=== PATIENT | male | born 1960 | race Asian ===

== ENCOUNTER → 2019-09-16 | Day surgery (SDC) | payer BC, OTHER ==
[2019-09-12 16:45] VITALS: BMI 24.3
[2019-09-16 07:47] LABS: EOS % 5.2 % (0-4.5); HEMATOCRIT 30.5 % (35.4-49); HEMOGLOBIN 11.1 GM/dL (11.7-16.9); LYMPH % 19.8 % (8-40); MCHC 36.4 g/dl (32.0-35.9); MEAN CELL VOLUME 87.8 fl (80-96); MEAN PLT VOLUME 6.2 fl (7.5-11.1); MONO % 8.8 % (3.8-10.2); NEUT % 65.2 % (42.8-82.8); PLATELET COUNT 343 K/MM3 (134-434); RBC 3.47 M/mm3 (4.00-5.60); RDW 12.3 % (11.9-15.9); WHITE BLOOD COUNT 9.3 K/mm3 (4.0-10.0)
[2019-09-16 08:35] LABS: INR 0.87 (0.83-1.09); PROTHROMBIN TIME (PATIENT) 10.3 SEC (9.7-13.0)
[2019-09-16 14:18] VITALS: PULSE 70; TEMP 97.9
[2019-09-16 14:43] VITALS: BP 130/85
--- NOTE | 2019-09-25 14:09 | PATH ---
Surgical Pathology Report Patient Name: PINO RIOJAS [facility]. Rec. #: [id number] /Age/Gender: 1960 (Age: 58) / M Account: [id number] Location: RADIOLOGY INTER Taken: 09/16/2019 Received: 09/16/2019 Reported: 09/25/2019 Physicians: Taylor Araya M.D. Specimen(s) Received RENAL BIOPSY Clinical History Renal failure, diabetes mellitus, high blood pressure Intraoperative Consult Diagnosis Left kidney biopsy: Glomeruli present. Robb Reinoso M.D., 09/16/2019 Final Diagnosis Consult report from [place], [place] ([id number]): RENAL BIOPSY 1. NODULAR DIABETIC GLOMERULOSCLEROSIS, MILD TO MODERATE, WITH FOCAL SEGMENTAL SCLEROSING FEATURES (SEE COMMENT). 2. TUBULAR ATROPHY AND INTERSTITIAL FIBROSIS, MILD TO MODERATE 3. ARTERIO-AND ARTERIOLOSCLEROSIS, MODERATE Comment: Immunofluorescence microscopy shows no evidence of glomerular disease of the immune complex type. No acute/active inflammatory injury is seen. Electron microscopy is pending and will be reported separately in an addendum. Microscopic Description: Sections are stained with H&E, PAS, trichrome, and JMS. Sections show 1 core of renal cortex containing 5 glomeruli, 2 of which show complete global sclerosis. One(1) glomerulus shows segmental obliteration and expansion of capillary lumina by foam cells (cellular variant FSGS.) The nonsclerotic glomeruli shows mild to moderate diffuse mesangial sclerosis and thickening of basement membranes. One(1) glomerulus shows mild nodular mesangial sclerosis. No crescents, fibrinoid necrosis or fibrin thrombi are seen. There is mild to moderate patchy tubular atrophy and interstitial fibrosis affecting 30% of the cortical area, accompanied by a patchy mononuclear inflammatory cell infiltrate. No tubulitis, interstitial eosinophils or granulomas are seen. Arteries show moderate intimal fibrosis and arterioles show moderate hyalinosis. There is no evidence of arteritis. IMMUNOFLUORESCENCE (PROCEDURE): Interpretation: GLOMERULI TUBULES INTERSTITIUM VESSELS IgG 7gloms +/- Tbm's +/- neg neg global linear GCW IgM 1 of 7 gloms +/- neg neg arteriole michaud 2+ seg tuft IgA 7 gloms neg casts 1+ neg neg C3 2 of 7 gloms 2+ neg neg arteriole michaud 2+ seg tuft C1 1 of 7 gloms +/- neg neg arteriole michaud 2+ seg tuft FBGN 7 gloms neg neg neg neg ALB 7 gloms 1+ Tbm's 1+ neg neg global linear GCW linear KAPPA 1 of 7 gloms +/- casts 1+ neg neg seg tuft LAMBDA1 of 7 gloms +/- casts 1+ neg neg seg tuft Positive and negative controls show appropriate reactivity. Case sent for consultation to Dr. Damian Muniz from [place], [place] ([id number]), the diagnosis above reflects his opinion. See complete report ([id number]) from [place], [place] for additional details. Electronically Signed Seven Reinoso M.D. Gross Description Received fresh labeled "renal biopsy," is a 1.4 cm in length x 0.1 cm in diameter wilson-red, cylindrical portion of soft tissue. The specimen is sectioned, placed into 10% buffered formalin, Alberto fixative and glutaraldehyde. The specimen is sent to [facility] for further studies. 09/16/2019 saudi09/16/2019
== END | disposition home or self-care (01) ==
LOC: JRADIR 07:11
PROVIDERS: ATTEND Family Medicine
PROC: 0TB13ZX Excision of Left Kidney, Percutaneous Approach, Diagnostic (ICD-10-PCS; principal; 2019-09-16)
PROC: BD24ZZZ Computerized Tomography (CT Scan) of Colon (ICD-10-PCS; 2019-09-16)
DX: N28.9 Disorder of kidney and ureter, unspecified (principal); I10 Essential (primary) hypertension; E11.9 Type 2 diabetes mellitus without complications; N40.0 Benign prostatic hyperplasia without lower urinary tract symptoms; J45.909 Unspecified asthma, uncomplicated; Z79.84 Long term (current) use of oral hypoglycemic drugs; Z79.4 Long term (current) use of insulin
CPT/HCPCS: 36415; 50200; 76098-TC-FY; 76942-TC; 85025; 85610; 87899; 88300-TC; 88329

== ENCOUNTER 2020-05-12 10:15 | Inpatient (IN) | payer BC, OTHER ==
--- NOTE | 2020-05-12 11:13 | PDOC ---
Documentation entered by Teja Garcia SCRIBE, acting as scribe for Sonia Menendez MD. Sonia Menendez MD: This documentation has been prepared by the scribe, Teja Garcia SCRIBE, under my direction and personally reviewed by me in its entirety. I confirm that the documentation accurately reflects all work, treatment, procedures, and medical decision making performed by me. Attending Attestation - Resident Resident Name: KrystinmelisaRamses - ED Attending Attestation I have performed the following: I have examined & evaluated the patient, The case was reviewed & discussed with the resident, I agree w/resident's findings & plan, Exceptions are as noted - HPI HPI: 59 yo M history HTN, DM, CKD stage 4, COPD/asthma presenting with elevated potassium on outpatient labs. He notes recent KAM, above his baseline. Denies fever, cough. +Congestion. No known sick contacts. He is being followed for CKD by Dr. Carmen, awaiting kidney transplant, to be the donor. - Physicial Exam PE: 05/12/20 10:53 GENERAL: Awake, alert, and fully oriented, in no acute distress HEAD: No signs of trauma EYES: PERRLA, EOMI, sclera anicteric, conjunctiva clear ENT: Auricles normal inspection, hearing grossly normal, nares patent, oropharynx clear without exudates. Moist mucosa NECK: Normal ROM, supple, no lymphadenopathy, JVD, or masses LUNGS: Breath sounds equal, good air entry. +Crackles fci up B/L. No wheezes. HEART: Regular rate and rhythm, normal S1 and S2, no murmurs, rubs or gallops ABDOMEN: Soft, nontender, normoactive bowel sounds. No guarding, no rebound. No masses EXTREMITIES: Normal range of motion, no edema. No clubbing or cyanosis. No cords, erythema, or tenderness NEUROLOGICAL: Cranial nerves II through XII grossly intact. Normal speech, normal gait SKIN: Warm, Dry, normal turgor, no rashes or lesions noted. - Medical Decision Making 05/12/20 11:[address] Solano to confirm outpatient labs, also to be evaluated by renal to determine if he needs to start dialysis. Discharge - Discharge Information Problems reviewed: Yes Clinical Impression/Diagnosis: CKD (chronic kidney disease), stage IV Condition: Stable - Follow up/Referral Referrals: Nickie Solano MD [Primary Care Provider] - - Patient Discharge Instructions - Post Discharge Activity
--- NOTE | 2020-05-12 11:30 | PDOC ---
Documentation entered by Teja Garcia SCRIBE, acting as scribe for Sonia Menendez MD. Sonia Menendez MD: This documentation has been prepared by the fredibe, Teja Garcia SCRIBE, under my direction and personally reviewed by me in its entirety. I confirm that the documentation accurately reflects all work, treatment, procedures, and medical decision making performed by me. History of Present Illness - General Chief Complaint: Abnormal Lab Results (Outside) Stated Complaint: SENT BY PCP Time Seen by Provider: 05/12/20 10:49 History Source: Patient Exam Limitations: No Limitations - History of Present Illness Initial Comments: 05/12/20 11:17 59 yo M history HTN, DM, CKD stage 4, COPD/asthma presenting with elevated potassium on outpatient labs. He notes recent KAM, above his baseline. Denies fever, cough. +Congestion. No known sick contacts. He is being followed for CKD by Dr. Carmen, awaiting kidney transplant, to be the donor. Past History - Medical History Allergies/Adverse Reactions: Allergies Allergy/AdvReac Type Severity Reaction Status Date / Time Penicillins Allergy Intermediate Rash Verified 05/12/20 10:29 statins Allergy Uncoded 05/12/20 10:29 Home Medications: Ambulatory Orders Amlodipine Besylate [Norvasc -] 10 mg PO DAILY 01/11/13 Insulin Glargine,Hum.rec.anlog [Lantus (nf)] 50 units SQ DAILY 09/12/19 Lisinopril [Prinivil] 10 mg PO DAILY 09/12/19 Nebivolol HCl [Bystolic] 10 mg PO DAILY 09/12/19 Pitavastatin Calcium [Livalo] 5 mg PO DAILY 09/12/19 Icosapent Ethyl [Vascepa] 1 gm PO DAILY 09/16/19 Albuterol Sulfate Inhaler - [Ventolin Hfa Inhaler -] 1 - 2 inh PO Q4H PRN 01/28/20 Budesonide/Formeterol Fumarate [SYMBICORT 80/4.5mcg -] 1 inh PO BID 01/28/20 Prednisone [Prednisone 50 MG TABLETS] 50 mg PO DAILY 5 Days #5 tablet 01/28/20 Anemia: No Asthma: Yes Cancer: No Cardiac Disorders: No CVA: No COPD: No CHF: No Dementia: No Diabetes: Yes GI Disorders: Yes (COLONIC POLYPS; GERD) Disorders: Yes (KIDNEY STONES) HTN: Yes Hypercholesterolemia: Yes Liver Disease: No Seizures: No Thyroid Disease: No Other medical history: CKD - Surgical History Abdominal Surgery: No Appendectomy: No Cardiac Surgery: No Cholecystectomy: No Lung Surgery: No Neurologic Surgery: No Orthopedic Surgery: Yes (RIGHT ARM SURGERY; LEFT THUMB PTL REMOVAL) - Immunization History Immunization Up to Date: Yes - Psycho-Social/Smoking History Smoking History: Never smoked Have you smoked in the past 12 months: Yes Number of Cigarettes Smoked Daily: 3 'Breaking Loose' booklet given: 09/12/19 - Substance Abuse Hx (Audit-C & DAST Scrn) How often the patient has a drink containing alcohol: Never Score: In Men: 4 or > Positive; In Women: 3 or > Positive: 0 Screen Result (Pos requires Nsg. Audit-10AR): Negative In the last yr the pt used illegal drug/Rx for NonMed reason: No Score: Yes response is considered Positive: 0 Screen Result (Positive result requires Nsg. DAST-10): Negative *Physical Exam - Vital Signs Last Vital Signs Temp Pulse Resp BP Pulse Ox 98.3 F 80 18 152/64 100 05/12/20 10:29 05/12/20 10:29 05/12/20 10:29 05/12/20 10:29 05/12/20 10:29 - Physical Exam 05/12/20 11:17 GENERAL: Awake, alert, and fully oriented, in no acute distress HEAD: No signs of trauma EYES: PERRLA, EOMI, sclera anicteric, conjunctiva clear ENT: Auricles normal inspection, hearing grossly normal, nares patent, oropharynx clear without exudates. Moist mucosa NECK: Normal ROM, supple, no lymphadenopathy, JVD, or masses LUNGS: Breath sounds equal, good air entry. +Crackles alf up B/L. No wheezes. HEART: Regular rate and rhythm, normal S1 and S2, no murmurs, rubs or gallops ABDOMEN: Soft, nontender, normoactive bowel sounds. No guarding, no rebound. No masses EXTREMITIES: Normal range of motion, no edema. No clubbing or cyanosis. No cords, erythema, or tenderness NEUROLOGICAL: Cranial nerves II through XII grossly intact. Normal speech, normal gait SKIN: Warm, Dry, normal turgor, no rashes or lesions noted. Heart Score/ECG Review - ECG Impressions Comment:: EKG read 11:10- NSR 73 bpm, no ST elevations. +Peaked T waves in V3. ED Treatment Course - LABORATORY CBC & Chemistry Diagram: 05/12/20 12:00 05/12/20 12:00 Medical Decision Making - Medical Decision Making 05/12/20 11:[address] Solano to confirm outpatient labs, also to be evaluated by renal to determine if he needs to start dialysis. 05/12/20 14:09 Pt with hyperkalemia. Will treat medically. Dr. Vergara aware. Dr. Carmen en route. Dr. Solano has evaluated patient, will admit. Discharge - Discharge Information Problems reviewed: Yes Clinical Impression/Diagnosis: CKD (chronic kidney disease), stage IV, Hyperkalemia Condition: Stable - Admission Yes - Follow up/Referral Referrals: Nickie Solano MD [Primary Care Provider] - - Patient Discharge Instructions - Post Discharge Activity
[2020-05-12 13:03] LABS: BASO % 0.5 % (0-2.0); HEMATOCRIT 27.1 % (35.4-49); HEMOGLOBIN 8.9 GM/dL (11.7-16.9); LYMPH % 15.4 % (8-40); MCH 29.7 pg (25.7-33.7); MEAN CELL VOLUME 89.9 fl (80-96); MEAN PLT VOLUME 6.5 fl (7.5-11.1); MONO % 9.5 % (3.8-10.2); NEUT % 66.6 % (42.8-82.8); PLATELET COUNT 279 K/MM3 (134-434); RBC 3.01 M/mm3 (4.00-5.60); RDW 12.4 % (11.9-15.9); WHITE BLOOD COUNT 6.9 K/mm3 (4.0-10.0)
[2020-05-12 13:10] LABS: INR 0.91 (0.83-1.09); PROTHROMBIN TIME (PATIENT) 10.7 SEC (9.7-13.0)
[2020-05-12 13:38] LABS: ALBUMIN 3.5 g/dl (3.4-5.0); BILIRUBIN,TOTAL 0.3 mg/dL (0.2-1); BLOOD UREA NITROGEN 83.3 mg/dL (7-18); CALCIUM 7.9 mg/dL (8.5-10.1); CREATININE 7.3 mg/dL (0.55-1.3); MAGNESIUM 2.4 mg/dL (1.8-2.4); PHOSPHOROUS 5.6 mg/dL (2.5-4.9); TOT PROT 7.2 g/dl (6.4-8.2)
[2020-05-12 14:01] LABS: POTASSIUM 6.5 mmol/L (3.5-5.1)
[2020-05-12] MEDS ORDERED: SODIUM BICARBONATE 8.4% 50 MEQ/50 ML DISP.SYRIN IVPUSH ONE (14:04)
[2020-05-12] MEDS ORDERED: INSULIN REGULAR HUMAN 100 UNITS/ML *VIAL IVPUSH ONE (14:04)
[2020-05-12] MEDS ORDERED: ALBUTEROL SO4 0.083% IH SOL 2.5 MG/3 ML VIAL.NEB. NEB ONE ×2 (14:04→14:47)
[2020-05-12] MEDS ORDERED: DEXTROSE 50%-WATER - 25 GM/50 ML VIAL IVPUSH ONE (14:04)
[2020-05-12] MEDS ORDERED: CALCIUM GLUCONATE 10% - 1,000 MG/10 ML VIAL IVPUSH ONE (14:04)
[2020-05-12] MEDS ORDERED: SODIUM BICARBONATE 8.4% - 50 ML ONE (14:47)
[2020-05-12] MEDS ORDERED: DEXTROSE 50%-WATER 25 GM/50 ML DISP.SYRIN ONE (14:47)
[2020-05-12] MEDS ORDERED: INSULIN REGULAR HUMAN 100 UNITS/ML *VIAL ONE (14:47)
[2020-05-12] MEDS ORDERED: CALCIUM GLUCONATE 10% - 1,000 MG/10 ML VIAL ONE (14:47)
[2020-05-12] MEDS ORDERED: ACETAMINOPHEN 325 MG TABLET (FP) PO PRN (16:48)
[2020-05-12] MEDS ORDERED: ALBUTEROL SO4 0.083% IH SOL 2.5 MG/3 ML VIAL.NEB. NEB PRN (16:48)
--- NOTE | 2020-05-12 16:53 | CON.NEP ---
Consult Consult Specialty:: nephrology Reason for Consultation:: ckd stage 5 - History of Present Illness Chief Complaint: none History of Present Illness: This is a 59 year old man diabetic, hypertensive man with a history of ckd that has progressed to a point that he needs HD. He also has asthma He came today due to abnormal labs. reportedly without symptoms. He was on his way to a short vacation to [facility]. Deneis dyspnea, chest pain, n/v, cramping. He did have cramps before but has not had them for a while. In the emrgency dept his k is 6.5 and his creat is 7.3. Has no trouble urinating and no edema. - History Source History Provided By: Patient Limitations to Obtaining History: No Limitations - Past Medical History Cardio/Vascular: Yes: HTN Pulmonary: Yes: Asthma Renal/: Yes: Renal Failure, BPH Heme/Onc: Yes: Anemia - Past Surgical History Past Surgical History: Yes: TURP - Alcohol/Substance Use Hx Alcohol Use: Yes (RARE) - Smoking History Smoking history: Never smoked Have you smoked in the past 12 months: Yes Aproximately how many cigarettes per day: 3 Home Medications - Allergies Allergies/Adverse Reactions: Allergies Allergy/AdvReac Type Severity Reaction Status Date / Time Penicillins Allergy Intermediate Rash Verified 05/12/20 10:29 statins Allergy Uncoded 05/12/20 10:29 - Home Medications Home Medications: Ambulatory Orders Amlodipine Besylate [Norvasc -] 10 mg PO DAILY 01/11/13 Insulin Glargine,Hum.rec.anlog [Lantus (nf)] 50 units SQ DAILY 09/12/19 Lisinopril [Prinivil] 10 mg PO DAILY 09/12/19 Nebivolol HCl [Bystolic] 10 mg PO DAILY 09/12/19 Pitavastatin Calcium [Livalo] 5 mg PO DAILY 09/12/19 Icosapent Ethyl [Vascepa] 1 gm PO DAILY 09/16/19 Albuterol Sulfate Inhaler - [Ventolin Hfa Inhaler -] 1 - 2 inh PO Q4H PRN 01/28/20 Budesonide/Formeterol Fumarate [SYMBICORT 80/4.5mcg -] 1 inh PO BID 01/28/20 Prednisone [Prednisone 50 MG TABLETS] 50 mg PO DAILY 5 Days #5 tablet 01/28/20 Review of Systems - Review of Systems Constitutional: reports: Loss of Appetite Eyes: reports: No Symptoms HENT: reports: No Symptoms Neck: reports: No Symptoms Cardiovascular: reports: No Symptoms Respiratory: reports: No Symptoms Gastrointestinal: reports: No Symptoms Genitourinary: reports: No Symptoms Breasts: reports: No Symptoms Reported Musculoskeletal: reports: No Symptoms Integumentary: reports: No Symptoms Neurological: reports: No Symptoms Endocrine: reports: No Symptoms Hematology/Lymphatic: reports: No Symptoms Psychiatric: reports: No Symptoms Nephrology Consult - Height Height: 5 ft 7 in - Weight Weight: 152 lb - BMI Body Mass Index (BMI): 23.8 - Lab Results CBC,BMP: CBC, BMP 05/12/20 12:00 05/12/20 12:00 Anion Gap: Anion Gap Anion Gap 8 MMOL/L (8-16) 05/12/20 12:00 - Imaging Chest X-ray: Report Reviewed (no acute disease) - Physical Examination Vital Signs: Vital Signs Temperature 98.3 F 05/12/20 15:50 Pulse Rate 82 05/12/20 15:50 Respiratory Rate 18 05/12/20 15:50 Blood Pressure 169/70 05/12/20 15:50 O2 Sat by Pulse Oximetry (%) 97 05/12/20 15:50 Constitutional: Yes: Well Nourished, No Distress, Calm Eyes: Yes: Conjunctiva Clear, EOM Intact HENT: Yes: Atraumatic, Normocephalic Neck: Yes: Supple, Trachea Midline Cardiovascular: Yes: Regular Rate and Rhythm. No: Rub Respiratory: Yes: Rhonchi Renal/: Yes: WNL Musculoskeletal: Yes: WNL Extremities: Yes: WNL Edema: No Wound/Incision: Yes: Well Approximated Neurological: Yes: Alert, Oriented, Tremors Assessment/Plan CKD stage 5 metabolic acidosis hyperkalemia PLAN start hd will ask vascular to place a permcath can dialyZe after hd his is being evaluated for transplant but her DBP is still high on quinapril work up has been done. So none necessary now hep b s Ag and HCV MV
[2020-05-12] MEDS: SODIUM ZIRCONIUM CYCLOSILICATE (LOKELMA) 5 GM PACKET PO SCH (17:54)
[2020-05-12] MEDS ORDERED: ALBUTEROL SO4 HFA INHALER IH PRN (19:00)
--- NOTE | 2020-05-12 20:22 | CONSULT ---
Consult - text type - Consultation Consultation Note: 59 year old man admitted with end-stage kidney disease to begin dialysis treatment. He has not been on dialysis before. He is right handed. PMH reviewed. PEx: NAD HEENT WNL Neck supple Chest clear Cor RRR Abd soft Ext no edema. Left arm has IV in forearm. 2+ radial pulse. Plan for Permacath placement. Assessment for chronic access with AV fistula prior to discharge.
[2020-05-12] MEDS ORDERED: PT OWN MED DRAWER 7, Y5N ONE (23:26)
[2020-05-12] MEDS: INSULIN SLIDING SCALE (NOVOLOG) 1 VIAL SQ SCH (23:37)
[2020-05-12] MEDS: BUDESONIDE/FORMETEROL FUMARATE 80/4.5 mcg INHALER IH SCH (23:38)
[2020-05-13 00:24] VITALS: BMI 23.6
[2020-05-13] MEDS ORDERED: DEXTROSE 50%-WATER - 25 GM/50 ML VIAL IVPUSH ONE (06:05)
[2020-05-13] MEDS ORDERED: DEXTROSE 50%-WATER 25 GM/50 ML DISP.SYRIN ONE (06:06)
[2020-05-13] MEDS: INSULIN SLIDING SCALE (NOVOLOG) 1 VIAL SQ SCH ×4 (06:14→21:16)
--- NOTE | 2020-05-13 08:02 | PN ---
Progress Note, Physician - Current Medication List Current Medications: Active Medications Acetaminophen (Tylenol -) 650 mg PO Q6H PRN PRN Reason: FEVER Albuterol Sulfate (Ventolin Hfa Inhaler -) 2 puff IH Q6H PRN PRN Reason: SHORT OF BREATH/WHEEZING Amlodipine Besylate (Norvasc -) 10 mg PO DAILY [facility] Budesonide/Formoterol Fumarate (Symbicort 80/4.5mcg -) 2 puff IH BID [facility] Last Admin: 05/12/20 23:38 Dose: 2 puff Documented by: Insulin Aspart (Novolog Vial Sliding Scale -) 1 vial SQ ACHS [facility]; Protocol Last Admin: 05/13/20 06:14 Dose: Not Given Documented by: Nebivolol (Bystolic -) 10 mg PO DAILY [facility] Sodium Zirconium Cyclosilicate (Lokelma) 10 gm PO DAILY [facility] Last Admin: 05/12/20 17:54 Dose: 10 gm Documented by: - Objective Vital Signs: Vital Signs Temperature 98.5 F 05/13/20 06:00 Pulse Rate 75 05/13/20 06:00 Respiratory Rate 20 05/13/20 06:00 Blood Pressure 148/75 05/13/20 06:00 O2 Sat by Pulse Oximetry (%) 98 05/13/20 06:00 Labs: CBC, BMP 05/12/20 12:00 05/12/20 12:00 INR, PTT INR 0.91 (0.83-1.09) 05/12/20 12:00
--- NOTE | 2020-05-13 08:12 | HP ---
Admitting History and Physical - Primary Care Physician PCP: Nickie Solano - Admission Chief Complaint: ACUTE ON CHRONIC RENAL FAILURE History of Present Illness: PATIENT SENT FROM MY OFFICE WITH HYPERKALEMIA WORSENING RENAL FUNCTION WITH DYSPNEA ON EXERTION - Past Medical History Cardiovascular: Yes: HTN Pulmonary: Yes: Asthma Renal/: Yes: Renal Failure, BPH Heme/Onc: Yes: Anemia - Past Surgical History Past Surgical History: Yes: TURP - Smoking History Smoking history: Former smoker Have you smoked in the past 12 months: No Aproximately how many cigarettes per day: 3 If you are a former smoker, when did you quit?: 1.5 years ago - Alcohol/Substance Use Hx Alcohol Use: Yes (RARE) Home Medications - Allergies Allergies/Adverse Reactions: Allergies Allergy/AdvReac Type Severity Reaction Status Date / Time Penicillins Allergy Intermediate Rash Verified 05/12/20 10:29 statins Allergy Uncoded 05/12/20 10:29 - Home Medications Home Medications: Ambulatory Orders Amlodipine Besylate [Norvasc -] 10 mg PO DAILY 01/11/13 Insulin Glargine,Hum.rec.anlog [Lantus (nf)] 50 units SQ DAILY 09/12/19 Lisinopril [Prinivil] 10 mg PO DAILY 09/12/19 Nebivolol HCl [Bystolic] 10 mg PO DAILY 09/12/19 Pitavastatin Calcium [Livalo] 5 mg PO DAILY 09/12/19 Icosapent Ethyl [Vascepa] 1 gm PO DAILY 09/16/19 Albuterol Sulfate Inhaler - [Ventolin Hfa Inhaler -] 1 - 2 inh PO Q4H PRN 01/28/20 Budesonide/Formeterol Fumarate [SYMBICORT 80/4.5mcg -] 1 inh PO BID 01/28/20 Prednisone [Prednisone 50 MG TABLETS] 50 mg PO DAILY 5 Days #5 tablet 01/28/20 Review of Systems - Review of Systems Constitutional: reports: Weakness Cardiovascular: reports: No Symptoms Respiratory: reports: SOB Gastrointestinal: reports: No Symptoms Genitourinary: reports: Other Musculoskeletal: reports: Muscle Weakness Physical Examination Vital Signs: Vital Signs Temperature 98.5 F 05/13/20 06:00 Pulse Rate 75 05/13/20 06:00 Respiratory Rate 20 05/13/20 06:00 Blood Pressure 148/75 05/13/20 06:00 O2 Sat by Pulse Oximetry (%) 98 05/13/20 06:00 Constitutional: Yes: Mild Distress Cardiovascular: Yes: Regular Rate and Rhythm Respiratory: Yes: Diminished, Wheezes Gastrointestinal: Yes: WNL Renal/: Yes: WNL Musculoskeletal: Yes: Muscle Weakness Edema: No Neurological: Yes: Pre-Existing Deficit Labs: CBC, BMP 05/12/20 12:00 05/12/20 12:00 Imaging - Results Chest X-ray: Report Reviewed Problem List - Problems (1) CKD (chronic kidney disease), stage IV Code(s): N18.4 - CHRONIC KIDNEY DISEASE, STAGE 4 (SEVERE) (2) Hyperkalemia Code(s): E87.5 - HYPERKALEMIA (3) Wheezing Code(s): R06.2 - WHEEZING Assessment/Plan NEED FOR DIALYSIS IMMEDIATELY RENAL CONSULT APPRECIATED MONITOR K+ NEBS PULM EVAL DVT PROPHYLAXIS
[2020-05-13 08:38] LABS: EPI CELLS 5 /uL (0-25.1); HYALINE CASTS 1 /uL (0-3.1); URINE APPEARANCE CLEAR; URINE BACTERIA 20 /uL (0-1359); URINE BILIRUBIN NEGATIVE (NEGATIVE); URINE COLOR YELLOW; URINE GLUCOSE (UA) NEGATIVE (NEGATIVE); URINE KETONE NEGATIVE (NEGATIVE); URINE LEUK ESTERASE NEGATIVE (NEGATIVE); URINE NITRITE NEGATIVE (NEGATIVE); URINE PROTEIN 3+ (NEGATIVE); URINE RBC 34 /uL (0-23.9); URINE UROBILINOGEN 0.2 mg/dL (0.2-1.0); URINE WBC 43 /uL (0-25.8)
[2020-05-13 08:49] LABS: HEMATOCRIT 23.1 % (35.4-49); HEMOGLOBIN 7.8 GM/dL (11.7-16.9); MCH 29.9 pg (25.7-33.7); MEAN PLT VOLUME 6.3 fl (7.5-11.1); PLATELET COUNT 279 K/MM3 (134-434); RBC 2.62 M/mm3 (4.00-5.60); RDW 12.5 % (11.9-15.9); WHITE BLOOD COUNT 6.8 K/mm3 (4.0-10.0)
[2020-05-13] MEDS ORDERED: PT OWN MED DRAWER 7, Y5N ONE ×3 (08:54→13:13)
[2020-05-13 09:13] LABS: BILIRUBIN,TOTAL 0.3 mg/dL (0.2-1); BLOOD UREA NITROGEN 84.9 mg/dL (7-18); CALCIUM 7.7 mg/dL (8.5-10.1); CREATININE 7.2 mg/dL (0.55-1.3); POTASSIUM 5.3 mmol/L (3.5-5.1); TOT PROT 6.2 g/dl (6.4-8.2)
[2020-05-13] MEDS ORDERED: LIDOCAINE HCL 1%, 10 MG/ML (20ML VIAL) ONE (09:22)
[2020-05-13] MEDS: BUDESONIDE/FORMETEROL FUMARATE 80/4.5 mcg INHALER IH SCH ×2 (10:00→21:18)
[2020-05-13] MEDS ORDERED: amLODIPine BESYLATE 10 MG TABLET (FP) PO SCH (10:00)
[2020-05-13] MEDS ORDERED: NEBIVOLOL 10 MG TABLET (FP) PO SCH (10:00)
--- NOTE | 2020-05-13 10:04 | EKG ---
Test Reason : Blood Pressure : / mmHG Vent. Rate : 073 BPM Atrial Rate : 073 BPM P-R Int : 192 ms QRS Dur : 080 ms QT Int : 410 ms P-R-T Axes : 060 036 059 degrees QTc Int : 451 ms NORMAL SINUS RHYTHM NORMAL ECG WHEN COMPARED WITH ECG OF 28-JAN-2020 16:39, NO SIGNIFICANT CHANGE WAS FOUND Confirmed by MD Hayes Daniel ([id number]) on 05/13/2020 10:04:35 AM Referred By: Confirmed By:Diego Hayes MD
--- NOTE | 2020-05-13 12:59 | PN ---
Progress Note (short form) - Note Progress Note: RENAL Pt seen early this morning had no complaints he does say that food has a metallic taste Last Vital Signs Temp Pulse Resp BP Pulse Ox 98.6 F 76 18 157/95 98 05/13/20 09:00 05/13/20 09:00 05/13/20 09:00 05/13/20 09:00 05/13/20 09:00 lungs clear cvs s1s2 rr abd soft ext no edema neuro slight asterixis on left hand skin no rashes CBC, BMP 05/13/20 07:45 05/13/20 07:45 IMPRESSION esrd htn ckd secondary to dm, biopsy proven PLAN I have discussed dialysis with him. He was waiting for his 's kidney to become available but she has htn and is not fully controlled. He has agreed to initiate hd and will have a permcath placed today can hd today in hope of keeping him on a MWF schedule Please have special events planner send info to [facility]- a [facility] [place]
[2020-05-13] MEDS ORDERED: SODIUM CHLORIDE 250 ML IV PRN ×2 (13:00→17:09)
[2020-05-13] MEDS: SODIUM ZIRCONIUM CYCLOSILICATE (LOKELMA) 5 GM PACKET PO SCH (13:37)
--- NOTE | 2020-05-13 15:02 | PN ---
Progress Note (short form) - Note Progress Note: PULMONARY CONSULTATION DICTATED 05/13/20 IMP HYPERKAEMIA ACUTE ON CKD ASTHMA ANEMIA DM HTN BPH PLAN SUPPLEMENTAL O2 HD PER RENAL INHALED BRONCHODILATORS MONITOR LYTES,H+H OUTPATIENT LOW DOSE CHEST CT FOR LUNG CANCER SCREENING OUTPATIENT PFTS DR LIMON Problem List - Problems (1) HTN (hypertension) Code(s): I10 - ESSENTIAL (PRIMARY) HYPERTENSION (2) CKD (chronic kidney disease), stage IV Code(s): N18.4 - CHRONIC KIDNEY DISEASE, STAGE 4 (SEVERE) (3) Hyperkalemia Code(s): E87.5 - HYPERKALEMIA (4) Wheezing Code(s): R06.2 - WHEEZING (5) Asthma Code(s): J45.909 - UNSPECIFIED ASTHMA, UNCOMPLICATED (6) Anemia Code(s): D64.9 - ANEMIA, UNSPECIFIED
[2020-05-13] MEDS ORDERED: PROPOFOL 20 ML ONE ×3 (16:05)
[2020-05-13] MEDS ORDERED: MIDAZOLAM HCL 2 MG/2 ML SINGLE DOSE VIAL ONE (16:05)
[2020-05-13] MEDS ORDERED: CLINDAMYCIN 600 MG PREMIX BAG IVPB ONE (16:05)
[2020-05-13] MEDS ORDERED: LIDOCAINE HCL 1%, 10 MG/ML (20ML VIAL) NR ONE (16:11)
--- NOTE | 2020-05-13 16:26 | OP ---
Operative Note - Note: Operative Date: 05/13/20 Pre-Operative Diagnosis: ESRD Operation: Placement Permacath Findings: Patent right IJV Implants: 19 cm TTC Permacath Post-Operative Diagnosis: Same as Pre-op Surgeon: Roland Fang Anesthesiologist/FUR BLOWER OPERATOR: Johann Roy Anesthesia: MAC
[2020-05-13] MEDS ORDERED: ONDANSETRON 4 MG/2 ML VIAL IVPUSH PRN (16:31)
[2020-05-13] MEDS ORDERED: ACETAMINOPHEN 325 MG TABLET (FP) PO PRN ×3 (16:31→17:09)
[2020-05-13] MEDS ORDERED: ALBUTEROL SO4 0.083% IH SOL 2.5 MG/3 ML VIAL.NEB. NEB ONE (16:34)
[2020-05-13] MEDS ORDERED: oxyCODONE HCL 5 MG TABLET PO PRN (16:45)
[2020-05-13] MEDS ORDERED: SODIUM CHLORIDE 1,000 ML IV SCH (16:45)
[2020-05-13] MEDS ORDERED: ALBUTEROL SO4 HFA INHALER IH PRN (17:09)
--- NOTE | 2020-05-13 17:10 | CONS ---
DATE OF CONSULTATION: 05/13/2020 PULMONARY CONSULTATION REFERRING PHYSICIAN: Nickie Solano MD. HISTORY OF PRESENT ILLNESS: The patient is a 59-year-old male with past medical history hypertension, diabetes, chronic kidney disease, BPH, anemia, history of GERD, history of tobacco use quit approximately a year and a half ago, admitted to [facility] with progressive renal failure and hyperkalemia. Patient apparently was to supposed to go to [facility] on the way to his vacation in [facility] he was notified abnormal labs, also the elevated potassium of 5.8 and elevated creatinine. He was advised to go to the emergency room. In the ER, his potassium was 6.5, creatinine 7.3. He was given D5W and transferred up to medical floor for further management. He was evaluated by renal. The patient to undergo hemodialysis. The patient has complained of mild shortness of breath with exertion and occasional wheeze, denies any chest pain or palpitations, denies any nausea, vomiting, diaphoresis. He has a history of asthma and states he uses albuterol as well as Symbicort. He has history of tobacco use as stated before and quit approximately a year and a half ago. He is currently employed as a dialysis nurse. PAST MEDICAL HISTORY: Again includes hypertension, asthma, chronic kidney disease, BPH, anemia, history of TURP. SOCIAL HISTORY: He is a retired software quality assurance specialist by profession, history of tobacco use, quit 1.5 years ago. REVIEW OF SYSTEMS: No orthopnea, positive mild dyspnea on exertion, positive occasional wheeze. No chest pain, no palpitations, no nausea, no vomiting, no abdominal pain. CURRENT MEDICATIONS: Include: 1. Symbicort. 2. Tylenol. 3. Albuterol. 4. Bystolic. 5. Norvasc. 6. Normal saline. 7. NovoLog. 8. . PHYSICAL EXAMINATION: General: The patient is a well-developed, well-nourished male, awake, alert, in no acute distress. He is afebrile. Vital Signs: Blood pressure 122/75, respiratory rate 20, O2 saturation 98% on room air. HEENT: Normocephalic, atraumatic. Neck: Supple. Heart: Regular S1, S2. Chest: A few scattered wheezes. Abdomen: Soft, bowel sounds positive. Extremities: No cyanosis, edema. LABORATORY: WBC is 6.8, hemoglobin 7.8, hematocrit 23.1, platelet count of 279,000. BUN 89, creatinine 7.2. COVID is pending. Chest x-ray no acute pathology. IMPRESSION: 1. Hyperkalemia. 2. Acute on chronic kidney disease. 3. Asthma, currently not acute exacerbation. 4. Anemia. 5. Diabetes. 6. Hypertension. 7. Benign prostatic hypertrophy. Suggest supplemental O2, hemodialysis as per renal, inhaled bronchodilators, monitor electrolytes, hemoglobin and hematocrit. Also patient should have an outpatient low-dose CAT scan for lung cancer screening and PFTs as outpatient. ANDRES LIMON M.D. [id number]
[2020-05-14] MEDS: INSULIN SLIDING SCALE (NOVOLOG) 1 VIAL SQ SCH ×3 (06:11→18:25)
[2020-05-14] MEDS ORDERED: PT OWN MED DRAWER 7, Y5N ONE ×2 (08:00→09:20)
[2020-05-14 08:19] LABS: HEMATOCRIT 23.1 % (35.4-49); MCH 30.7 pg (25.7-33.7); MCHC 34.8 g/dl (32.0-35.9); MEAN CELL VOLUME 88.5 fl (80-96); MEAN PLT VOLUME 6.5 fl (7.5-11.1); PLATELET COUNT 254 K/MM3 (134-434); RBC 2.61 M/mm3 (4.00-5.60); WHITE BLOOD COUNT 8.4 K/mm3 (4.0-10.0)
--- NOTE | 2020-05-14 08:33 | OP ---
DATE OF OPERATION: 05/13/2020 SURGEON: Roland Salmeron MD PROCEDURE: Placement of PermCath. PREOPERATIVE DIAGNOSIS: Renal failure. POSTOPERATIVE DIAGNOSIS: Renal failure. ANESTHESIA: Fractional. ANESTHESIOLOGIST: Roberto Roy MD OPERATIVE PROCEDURE: Following routine patient identification with site and side verification, intravenous sedation was established. The right neck and chest were prepped with ChloraPrep. Timeout was performed. Lidocaine 1% was infiltrated in the right neck. Using ultrasound guidance a micropuncture needle was advanced from the skin to the internal jugular vein. A wire was advanced into the superior vena cava and the needle was exchanged for a 5-Urdu catheter. A J-tipped wire was advanced through the right atrium into the inferior vena cava. Additional lidocaine was infiltrated in the chest wall and a stab wound was made. A 19-cm tip-to-cuff PermCath was advanced with a tunneler from the chest to the neck. The tract around the wire was dilated and the introducer placed into the superior vena cava. The wire and the dilator were removed. PermCath was advanced through the introducer and the tip positioned in the right atrium. The introducer was peeled away leaving the catheter in place. Each limb was aspirated freely for blood and flushed with saline and heparin solution. The catheter was sutured to the skin at the exit site with 3-0 nylon and the neck wound was closed with subcuticular suture of 3-0 Vicryl. A sterile dressing was applied and the patient was taken to the recovery room. ROLAND SALMERON M.D. [id number]
[2020-05-14 08:46] LABS: CREATININE 5.3 mg/dL (0.55-1.3); PHOSPHOROUS 6.1 mg/dL (2.5-4.9); POTASSIUM 4.9 mmol/L (3.5-5.1)
[2020-05-14 08:47] LABS: BLOOD UREA NITROGEN 56.5 mg/dL (7-18)
[2020-05-14 08:57] LABS: CALCIUM 6.9 mg/dL (8.5-10.1)
[2020-05-14] MEDS: BUDESONIDE/FORMETEROL FUMARATE 80/4.5 mcg INHALER IH SCH (09:26)
--- NOTE | 2020-05-14 09:39 | DS ---
Physical Examination Vital Signs: Vital Signs Temperature 98.6 F 05/14/20 07:33 Pulse Rate 72 05/14/20 07:33 Respiratory Rate 20 05/14/20 07:33 Blood Pressure 147/75 05/14/20 07:33 O2 Sat by Pulse Oximetry (%) 99 05/13/20 21:00 Findings/Remarks: AWAKE ALERT FEELS BETTER C/O PHLEGM CLEAR DENIES SOB Cardiovascular: Yes: Regular Rate and Rhythm Respiratory: Yes: Wheezes Gastrointestinal: Yes: Soft Renal/: Yes: Other Musculoskeletal: Yes: Muscle Weakness Wound/Incision: Yes: Dressing Dry and Intact, Other Labs: CBC, BMP 05/14/20 07:00 05/14/20 07:00 Discharge Summary Problems reviewed: Yes Reason For Visit: STAGE 4 CKD,HYPERKALEMIA Current Active Problems Anemia (Acute) Asthma (Acute) CKD (chronic kidney disease), stage IV (Acute) HTN (hypertension) (Acute) Hyperkalemia (Acute) Procedures: Principal: PC PLACED CHEST WALL Hospital Course: ADMITTED ACUTE ON CHRONIC RENAL FAILURE WITH HYPERKALEMIA PC PLACED WITH HD COMPLETED YESTERDAY Plan of Treatment: FOLLOW UP WITH NEPHROLOGY DR LIMON ASTHMA FOLLOW UP SEE DR SOLANO IN 1-2 WEEKS Condition: Stable - Instructions Diet, Activity, Other Instructions: SEE DR SOLANO IN 1 WEEK F/U DR CABALLERO FOR DIALYSIS Referrals: Nicike Solano MD [Primary Care Provider] - Disposition: HOME - Home Medications Comprehensive Discharge Medication List: Ambulatory Orders Amlodipine Besylate [Norvasc -] 10 mg PO DAILY 01/11/13 Insulin Glargine,Hum.rec.anlog [Lantus (nf)] 50 units SQ DAILY 09/12/19 Lisinopril [Prinivil] 10 mg PO DAILY 09/12/19 Nebivolol HCl [Bystolic] 10 mg PO DAILY 09/12/19 Pitavastatin Calcium [Livalo] 5 mg PO DAILY 09/12/19 Icosapent Ethyl [Vascepa] 1 gm PO DAILY 09/16/19 Albuterol Sulfate Inhaler - [Ventolin Hfa Inhaler -] 1 - 2 inh PO Q4H PRN 01/28/20 Budesonide/Formeterol Fumarate [SYMBICORT 80/4.5mcg -] 1 inh PO BID 05/12/20 Prednisone [Prednisone 50 MG TABLETS] 50 mg PO DAILY 5 Days #5 tablet 01/28/20
[2020-05-14] MEDS ORDERED: NEBIVOLOL 10 MG TABLET (FP) PO SCH (10:00)
[2020-05-14] MEDS ORDERED: SODIUM ZIRCONIUM CYCLOSILICATE (LOKELMA) 5 GM PACKET PO SCH (10:00)
[2020-05-14] MEDS ORDERED: amLODIPine BESYLATE 10 MG TABLET (FP) PO SCH (10:00)
--- NOTE | 2020-05-14 10:18 | PN ---
Progress Note (short form) - Note Progress Note: Surgery: Pt without complaints. No CP or SOB. He had HD yesterday via his PC. Vital Signs Period Temp Pulse Resp BP Sys/Nguyen Pulse Ox Last 24 Hr 97.5 F-98.7 F 67-81 14-20 114-162/57-83 98-100 GEN: A&0x3, NAD Chest: Right IJ cath site. c/d/i. No evidence of bleeding/hematoma. CBC, BMP 05/14/20 07:00 05/14/20 07:00 A/p: 59 yo male s/p Permacath, POD#1 Doing well and plan for discharge to home by the medical service Discharge instructions completed today for follow care with Dr. Fang
--- NOTE | 2020-05-14 10:36 | PN ---
Progress Note (short form) - Note Progress Note: RENAL Pt seen this morning had no complaints tolerated hd well. "i didnt feel anything" Last Vital Signs Temp Pulse Resp BP Pulse Ox 98.4 F 70 18 162/82 98 05/14/20 10:00 05/14/20 10:00 05/14/20 10:00 05/14/20 10:00 05/14/20 10:00 lungs clear cvs s1s2 rr abd soft ext no edema neuro slight asterixis on left hand skin no rashes CBC, BMP 05/14/20 07:00 05/14/20 07:00 Current Medications Generic Name Dose Route Start Last Admin Trade Name Freq PRN Reason Stop Dose Admin Acetaminophen 650 mg 05/13/20 16:31 Tylenol - PO Q4H PRN Pain-PACU ORDER X 2 DOSES ONLY Acetaminophen 325 mg 05/13/20 16:45 Tylenol - PO 05/16/20 16:44 Q4H PRN PAIN LEVEL 1-5 Acetaminophen 650 mg 05/13/20 17:09 Tylenol - PO Q6H PRN FEVER Albuterol Sulfate 2 puff 05/13/20 17:09 Ventolin Hfa Inhaler - IH Q6H PRN SHORT OF BREATH/WHEEZING Amlodipine Besylate 10 mg 05/14/20 10:00 05/14/20 09:25 Norvasc - PO 10 mg DAILY [facility] Administration Budesonide/Formoterol Fumarate 2 puff 05/13/20 22:00 05/14/20 09:26 Symbicort 80/4.5mcg - IH 2 puff BID [facility] Administration Sodium Chloride 1,000 mls @ 75 mls/hr 05/13/20 16:45 05/13/20 21:17 Normal Saline - IV 75 mls/hr ASDIR [facility] Administration Sodium Chloride 250 mls @ 3,000 mls/hr 05/13/20 17:09 Normal Saline - IV 05/14/20 13:00 PRN PRN Hypotension during Dialysis Insulin Aspart 1 vial 05/13/20 22:00 05/14/20 06:11 Novolog Vial Sliding Scale - SQ Not Given ACHS [facility] Protocol Nebivolol 10 mg 05/14/20 10:00 05/14/20 09:24 Bystolic - PO 10 mg DAILY [facility] Administration Ondansetron HCl 4 mg 08/26/20 16:31 Zofran Injection IVPUSH Q6H PRN NAUSEA AND/OR VOMITING Oxycodone HCl 5 mg 05/13/20 16:45 Roxicodone - PO Q4H PRN PAIN LEVEL 1-5 Sodium Zirconium Cyclosilicate 10 gm 05/14/20 10:00 05/14/20 09:25 Lokelma PO 10 gm DAILY [facility] Administration IMPRESSION esrd htn 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 I called the facility service associate already at [facility] dialysis and Im awaiting response will need hep b s ag report which was drawn yesterday but report is pending. He will not be accepted anywhere without that [facility]
--- NOTE | 2020-05-14 13:09 | PN ---
Progress Note (short form) - Note Progress Note: PULMONARY Denies shortness of breath, cough or wheezing. Vital Signs Period Temp Pulse Resp BP Sys/Nguyen Pulse Ox Last 24 Hr 97.5 F-98.7 F 67-81 14-20 114-162/57-83 98-100 Gen: NAD at rest Heart: RRR Lung: no wheezes appreciated Abd: soft, nontender Ext: no edema CBC, BMP 05/14/20 07:00 05/14/20 07:00 Active Medications Acetaminophen (Tylenol -) 650 mg PO Q4H PRN PRN Reason: Pain-PACU ORDER X 2 DOSES ONLY Acetaminophen (Tylenol -) 325 mg PO Q4H PRN PRN Reason: PAIN LEVEL 1-5 Stop: 05/16/20 16:44 Acetaminophen (Tylenol -) 650 mg PO Q6H PRN PRN Reason: FEVER Albuterol Sulfate (Ventolin Hfa Inhaler -) 2 puff IH Q6H PRN PRN Reason: SHORT OF BREATH/WHEEZING Amlodipine Besylate (Norvasc -) 10 mg PO DAILY [facility] Last Admin: 05/14/20 09:25 Dose: 10 mg Documented by: Budesonide/Formoterol Fumarate (Symbicort 80/4.5mcg -) 2 puff IH BID [facility] Last Admin: 05/14/20 09:26 Dose: 2 puff Documented by: Sodium Chloride (Normal Saline -) 1,000 mls @ 75 mls/hr IV ASDIR [facility] Last Admin: 05/13/20 21:17 Dose: 75 mls/hr Documented by: Sodium Chloride (Normal Saline -) 250 mls @ 3,000 mls/hr IV PRN PRN PRN Reason: Hypotension during Dialysis Stop: 05/14/20 13:00 Insulin Aspart (Novolog Vial Sliding Scale -) 1 vial SQ ACHS [facility]; Protocol Last Admin: 05/14/20 12:07 Dose: Not Given Documented by: Nebivolol (Bystolic -) 10 mg PO DAILY [facility] Last Admin: 05/14/20 09:24 Dose: 10 mg Documented by: Ondansetron HCl (Zofran Injection) 4 mg IVPUSH Q6H PRN PRN Reason: NAUSEA AND/OR VOMITING Oxycodone HCl (Roxicodone -) 5 mg PO Q4H PRN PRN Reason: PAIN LEVEL 1-5 Sodium Zirconium Cyclosilicate (Lokelma) 10 gm PO DAILY [facility] Last Admin: 05/14/20 09:25 Dose: 10 gm Documented by: A/P Acute on Chronic Renal Failure Hyperkalemia Asthma HTN DM Anemia - monitor lytes - HD per renal - inhaled bronchodilators - outpt PFTs - DVT prophylaxis
[2020-05-14 14:15] VITALS: BP 138/69; PULSE 75; TEMP 98.9
[2020-05-14 23:09] LABS: HEP B CORE AB, TOT Negative (Negative)
== END 2020-05-14 17:06 | disposition home or self-care (01) | DRG 673 ==
LOC: JER 10:15 → JERBED 14:41 → J8W 21:44
PROVIDERS: ADMIT Family Medicine; ATTEND Family Medicine
PROC: 05HM33Z Insertion of Infusion Device into Right Internal Jugular Vein, Percutaneous Approach (ICD-10-PCS; 2020-05-13)
PROC: B549ZZA Ultrasonography of Inferior Vena Cava, Guidance (ICD-10-PCS; 2020-05-13)
PROC: 0JH63XZ Insertion of Tunneled Vascular Access Device into Chest Subcutaneous Tissue and Fascia, Percutaneous Approach (ICD-10-PCS; principal; 2020-05-13 12:00)
DX: I12.0 Hypertensive chronic kidney disease with stage 5 chronic kidney disease or end stage renal disease (principal); N18.6 End stage renal disease; E87.2 Acidosis; N17.9 Acute kidney failure, unspecified; K21.9 Gastro-esophageal reflux disease without esophagitis; K63.5 Polyp of colon; N40.0 Benign prostatic hyperplasia without lower urinary tract symptoms; D64.9 Anemia, unspecified; R06.02 Shortness of breath; J45.909 Unspecified asthma, uncomplicated; E11.22 Type 2 diabetes mellitus with diabetic chronic kidney disease; Z99.2 Dependence on renal dialysis; Z87.442 Personal history of urinary calculi
CPT/HCPCS: 36415; 71045-TC-FY; 76000-TC-FY; 80048; 80053; 81003; 82962; 83735; 84100; 85025; 85027; 85610; 86704; 86705; 86706; 86707; 86850; 86900; 86901; 93005; 93010; 94760; 99285-25; J1644; U0003

== ENCOUNTER 2020-07-06 05:16 | Day surgery (SDC) | payer BC, OTHER ==
--- OUTSIDE RECORDS SUMMARY | 2020-07-03 09:58 | XMS ---
:1960 [facility] Care Team Providers Name Role Phone YOON MOE Unavailable Unavailable Xiomara, Ammir Unavailable [phone] Xiomara, Ammir Unavailable [phone] Xiomara, Ammir Unavailable [phone] Xiomara, Ammir Unavailable [phone] Xiomara, Ammir Unavailable [phone] Xiomara, Ammir Unavailable [phone] Xiomara, Ammir Unavailable [phone] Xiomara, Ammir Unavailable [phone] Xiomara, Ammir Unavailable [phone] Xiomara, Ammir Unavailable [phone] Xiomara, Ammir Unavailable [phone] Xiomara, Ammir Unavailable [phone] Xiomara, Ammir Unavailable [phone] Xiomara, Ammir Unavailable [phone] Xiomara, Ammir Unavailable [phone] Xiomara, Ammir Unavailable [phone] Re-disclosure Warning The records that you are about to access may contain information from federally- assisted alcohol or drug abuse programs. If such information is present, then the following federally mandated warning applies: This information has been disclosed to you from records protected by federal confidentiality rules (42 CFR part 2). The federal rules prohibit you from making any further disclosure of this information unless further disclosure is expressly permitted by the written consent of the person to whom it pertains or as otherwise permitted by 42 CFR part 2. A general authorization for the release of medical or other information is NOT sufficient for this purpose. The Federal rules restrict any use of the information to criminally investigate or prosecute any alcohol or drug abuse patient.The records that you are about to access may contain highly sensitive health information, the redisclosure of which is protected by Article 27-F of the [facility] Public Health law. If you continue you may haveaccess to information: Regarding HIV / AIDS; Provided by facilities licensed or operated by the [facility] Office of Mental Health; or Provided by the [facility] Office for People With Developmental Disabilities. If such information is present, then the following [facility] mandated warning applies: This information has been disclosed to you from confidential records which are protected by state law. State law prohibits you from making any further disclosure of this information without the specific written consent of the person to whom it pertains, or as otherwise permitted by law. Any unauthorized further disclosure in violation of state law may result in a fine or alf sentence or both. A general authorization for the release of medical or other information is NOT sufficient authorization for further disclosure. Encounters Encounter Providers Location Date Indications Data Source(s ) Attender: [facility] 06/23/2020 MEDGEN (A mmir Xiomara 12:00:00 AM SANDER Solano Ph ysician) Office Attender: esha Vargasadi 06/23/2020 12:00:00 AM E DT MEDGEN (Ammir Xiomara Physician) Office Attender: Nickie Vargasadi 06/23/2020 12:00:00 AM E DT MEDGEN (Ammir Xiomara Physician) Office Attender: Kemir Xiomara 06/23/2020 12:00:00 AM E DT MEDGEN (Ammir Xiomara Physician) Office Attender: Kemiuri Xiomara 06/02/2020 12:00:00 AM E DT MEDGEN (Ammir Xiomara Physician) Office Attender: Kemir Xiomara 06/02/2020 12:00:00 AM E DT MEDGEN (Ammir Xiomara Physician) Office Attender: Nickie Solano 05/12/2020 12:00:00 AM E DT MEDGEN (Ammir Xiomara Physician) Office Attender: Nickie Solano 05/12/2020 12:00:00 AM E DT MEDGEN (Ammir Xiomara Physician) Office Attender: Nickie Solano 05/12/2020 12:00:00 AM E DT MEDGEN (Ammir Xiomara Physician) Office Outpatient Attender: ABHI 10/22/2019 11:51:00 [facility] ANISAdmitter: AM EST [facility] YOONReferrer: YOON MOE Outpatient Attender: ABHI 10/22/2019 06:00:00 N18.6 [facility] LEENAELAdmitter: AM EST Z76.82 [facility] DANIMARCUSReferrer: YOON MOE N18.6 Z76.82 Medications Medication Brand Start Product Dose Route Administrative Pharmacy [facility] Indications Reaction Description Data Name Date Form Instructions Instructions Source(s) RENAPLEX-D: 06/02/ complet RENAPLEX -D MEDGEN [id number] ed (Ammir 12:00: Xiomara 00 AM Physician) EDT RENAPLEX-D: 06/02/ complet RENAPLEX -D MEDGEN [id number] [id number] ed (Ammir 12:00: Xiomara 00 AM Physician) EDT pitavastati LIVALO 08/05/ TABLET 90 complet LIVA LO MEDGEN n 4 MG Oral :85500 2019 ed (Ammir Tablet 4 12:00: Xiomara [Livalo] 00 AM Physician) LIVALO:8616 EDT 54 nebivolol 5 BYSTOL 08/05/ TABLET 90 complet BYST OLIC MEDGEN MG Oral IC:387 2019 ed (Ammir Tablet 013 12:00: Xiomara BYSTOLIC:38 00 AM Physici an) 7013 EDT pitavastati LIVALO 08/05/ TABLET 90 complet LIVA LO MEDGEN n 4 MG Oral :87226 2019 ed (Ammir Tablet 4 12:00: Xiomara [Livalo] 00 AM Physician) LIVALO:8616 EDT 54 Amlodipine AMLODI 08/05/ TABLET 90 complet AMLOD IPINE MEDGEN 10 MG Oral PINE:3 2019 ed (Ammir Tablet 33825 12:00: Xiomara AMLODIPINE: 00 AM Physici an) 942536 EDT nebivolol 5 BYSTOL 08/05/ TABLET 90 complet BYST OLIC MEDGEN MG Oral IC:387 2019 ed (Ammir Tablet 013 12:00: Xiomara BYSTOLIC:38 00 AM Physici an) 7013 EDT pitavastati LIVALO 04/22/ TABLET 90 complet LIVA LO MEDGEN n 4 MG Oral :45869 2019 ed (Ammir Tablet 4 12:00: Xiomara [Livalo] 00 AM Physician) LIVALO:8616 EDT 54 Amlodipine AMLODI 05/ TABLET 90 complet AMLOD IPINE MEDGEN 10 MG Oral PINE:3 2019 ed (Ammir Tablet 68613 12:00: Xiomara AMLODIPINE: 00 AM Physici an) 590793 EDT Amlodipine AMLODI 05/ TABLET 90 complet AMLOD IPINE MEDGEN 10 MG Oral PINE:3 2019 ed (Ammir Tablet 13330 12:00: Xiomara AMLODIPINE: 00 AM Physici an) 232337 EDT nebivolol 5 BYSTOL 04/22/ TABLET 90 complet BYST OLIC MEDGEN MG Oral IC:387 2019 ed (Ammir Tablet 013 12:00: Xiomara BYSTOLIC:38 00 AM Physici an) 7013 EDT Budesonide SYMBIC 02/24/ AEROSOL 3 complet SYMB ICORT MEDGEN 0.08 ORT:40 2019 ed (Ammir MG/ACTUAT / 9732 12:00: Xiomara formoterol 00 AM Physicia n) 0.0045 EDT MG/ACTUAT Inhalant Powder SYMBICORT:4 58379 Lisinopril LISINO 02/24/ TABLET 90 complet LISIN OPRIL MEDGEN 10 MG Oral PRIL:3 2019 ed (Ammir Tablet 25341 12:00: Xiomara LISINOPRIL: 00 AM Physici an) 032757 EDT 200 ACTUAT ALBUTE 02/24/ AEROSOL 1 complet ALBU TEROL MEDGEN Albuterol ROL 2019 ed SULFATE HFA (Am esha 0.09 SULFAT 12:00: Xiomara MG/ACTUAT E 00 AM Physician ) Metered HFA:74 EDT Dose 5679 Inhaler ALBUTEROL SULFATE HFA:374538 GLUCOSE complet GLUCOSE MEDG EN METER TEST 2019 ed METER TEST (Am esha IN VITRO 12:00: IN VITRO Rabad i STRIP: 00 AM STRIP Physician) EDT 3 ML LANTUS 02/24/ SOLUTION 3 complet LANTUS ME DGEN Insulin SOLOST 2020 ed SOLOSTAR PEN (A mmir Glargine [place] 12:00: Xiomara 100 UNT/ML PEN:84 00 AM Physic nico) Pen 7232 EDT Injector [Lantus] LANTUS SOLOSTAR PEN:813326 3 ML LANTUS 02/24/ SOLUTION 3 complet LANTUS ME DGEN Insulin SOLOST 2020 ed SOLOSTAR PEN (A mmir Glargine [place] 12:00: Xiomara 100 UNT/ML PEN:84 00 AM Physic nico) Pen 7232 EDT Injector [Lantus] LANTUS SOLOSTAR PEN:145243 GLUCOSE complet GLUCOSE MEDG EN METER TEST 2019 ed METER TEST (Am esha IN VITRO 12:00: IN VITRO Rabad i STRIP: 00 AM STRIP Physician) EDT 200 ACTUAT ALBUTE 02/24/ AEROSOL 1 complet ALBU TEROL MEDGEN Albuterol ROL 2019 ed SULFATE HFA (Am esha 0.09 SULFAT 12:00: Xiomara MG/ACTUAT E 00 AM Physician ) Metered HFA:74 EDT Dose 5679 Inhaler ALBUTEROL SULFATE HFA:170985 Budesonide SYMBIC 02/24/ AEROSOL 3 complet SYMB ICORT MEDGEN 0.08 ORT:40 2019 ed (Ammir MG/ACTUAT / 9732 12:00: Xiomara formoterol 00 AM Physicia n) 0.0045 EDT MG/ACTUAT Inhalant Powder SYMBICORT:4 89373 200 ACTUAT ALBUTE 02/24/ AEROSOL 1 complet ALBU TEROL MEDGEN Albuterol ROL 2019 ed SULFATE HFA (Am esha 0.09 SULFAT 12:00: Xiomara MG/ACTUAT E 00 AM Physician ) Metered HFA:74 EDT Dose 5679 Inhaler ALBUTEROL SULFATE HFA:277170 Lisinopril LISINO 02/24/ TABLET 90 complet LISIN OPRIL MEDGEN 10 MG Oral PRIL:3 2019 ed (Ammir Tablet 10921 12:00: Xiomara LISINOPRIL: 00 AM Physici an) 986093 EDT GLUCOSE complet GLUCOSE MEDG EN METER TEST 2019 ed METER TEST (Am esha IN VITRO 12:00: IN VITRO Rabad i STRIP: 00 AM STRIP Physician) EDT Lisinopril LISINO 02/24/ TABLET 90 complet LISIN OPRIL MEDGEN 10 MG Oral PRIL:3 2019 ed (Ammir Tablet 55826 12:00: Xiomara LISINOPRIL: 00 AM Physici an) 121493 EDT Budesonide SYMBIC 02/24/ AEROSOL 3 complet SYMB ICORT MEDGEN 0.08 ORT:40 2019 ed (Ammir MG/ACTUAT / 9732 12:00: Xiomara formoterol 00 AM Physicia n) 0.0045 EDT MG/ACTUAT Inhalant Powder SYMBICORT:4 84391 3 ML LANTUS 02/24/ SOLUTION 3 complet LANTUS ME DGEN Insulin SOLOST 2019 ed SOLOSTAR PEN (A mmir Glargine [place] 12:00: Xiomara 100 UNT/ML PEN:84 00 AM Physic nico) Pen 7232 EDT Injector [Lantus] LANTUS SOLOSTAR PEN:293945 Albuterol ALBUTE 07/ SOLUTION 3 complet ALBU TEROL MEDGEN 0.83 MG/ML ROL:63 2019 ed (Ammir Inhalant 0208 12:00: Xiomara Solution 00 AM Physician) ALBUTEROL:6 EDT 94389 Albuterol ALBUTE 07/ SOLUTION 3 complet ALBU TEROL MEDGEN 0.83 MG/ML ROL:63 2019 ed (Ammir Inhalant 0208 12:00: Xiomara Solution 00 AM Physician) ALBUTEROL:6 EDT 09018 Albuterol ALBUTE 07/ SOLUTION 3 complet ALBU TEROL MEDGEN 0.83 MG/ML ROL:63 2019 ed (Ammir Inhalant 0208 12:00: Xiomara Solution 00 AM Physician) ALBUTEROL:6 EDT 73892 3 ML LANTUS 17/ SOLUTION 3 complet LANTUS ME DGEN Insulin :60278 2019 ed (Ammir Glargine 0 12:00: Xiomara 100 UNT/ML 00 AM Physicia n) Pen EDT Injector LANTUS:8472 30 3 ML LANTUS 17/ SOLUTION 3 complet LANTUS ME DGEN Insulin :25706 2019 ed (Ammir Glargine 0 12:00: Xiomara 100 UNT/ML 00 AM Physicia n) Pen EDT Injector LANTUS:8472 30 3 ML LANTUS 03/17/ SOLUTION 3 complet LANTUS ME DGEN Insulin :67445 2019 ed (Ammir Glargine 0 12:00: Xiomara 100 UNT/ML 00 AM Physicia n) Pen EDT Injector LANTUS:8472 30 3 ML HUMALO 08/20/ SOLUTION 1 complet HUMALOG M EDGEN Insulin G 2019 ed KWIKPEN (Ammir Lispro 100 KWIKPE 12:00: Rabad i UNT/ML Pen N:1652 00 AM Physic nico) Injector 640 EST [Humalog] HUMALOG KWIKPEN:165 2640 3 ML HUMALO 08/20/ SOLUTION 1 complet HUMALOG M EDGEN Insulin G 2019 ed KWIKPEN (Ammir Lispro 100 KWIKPE 12:00: Rabad i UNT/ML Pen N:1652 00 AM Physic nico) Injector 640 EST [Humalog] HUMALOG KWIKPEN:165 2640 3 ML HUMALO 08/20/ SOLUTION 1 complet HUMALOG M EDGEN Insulin G 2019 ed KWIKPEN (Ammir Lispro 100 KWIKPE 12:00: Rabad i UNT/ML Pen N:1652 00 AM Physic nico) Injector 640 EST [Humalog] HUMALOG KWIKPEN:165 2640 Omeprazole OMEPRA 07/31/ DELAYED 90 complet OMEP RAZOLE MEDGEN 40 MG ZOLE:2 2018 RELEASE ed (Ammir Delayed 41490 12:00: CAPSULE Xiomara Release 00 AM Physician) Oral EST Capsule OMEPRAZOLE: 20021027 Omeprazole OMEPRA 07/31/ DELAYED 90 complet OMEP RAZOLE MEDGEN 40 MG ZOLE:2 2018 RELEASE ed (Ammir Delayed 26896 12:00: CAPSULE Xiomara Release 00 AM Physician) Oral EST Capsule OMEPRAZOLE: 20021027 Omeprazole OMEPRA 07/31/ DELAYED 90 complet OMEP RAZOLE MEDGEN 40 MG ZOLE:2 2018 RELEASE ed (Ammir Delayed 35525 12:00: CAPSULE Xiomara Release 00 AM Physician) Oral EST Capsule OMEPRAZOLE: 20021027 Insurance Providers Payer name Policy type Policy ID Covered Covered constitution party's Policy P robert / Coverage constitution party ID relationship to Lance Inf ormation type lance GHI CBP [id number] S [id number] OUTPT BC PPO [id number] S [id number] BC PPO [id number] S [id number] GHI CBP [id number] S [id number] OUTPT EMBLEM [id number] HEALTH Problems, Conditions, and Diagnoses Code Display Name Description Problem Type Effective Data Sour ce(s) Dates R25.2 Cramp and spasm CRAMP AND SPASM Problem 06/02/2020 MEDG EN (Ammir 12:00:00 AM Xiomara EDT Physician) R25.2 Cramp and spasm CRAMP AND SPASM Problem 06/02/2020 MEDG EN (Ammir 12:00:00 AM Xiomara EDT Physician) R06.00 Dyspnea, DYSPNEA, Problem 05/12/2020 MEDGEN (Ammir unspecified UNSPECIFIED 12:00:00 AM Xiomara EDT Physician) R06.00 Dyspnea, DYSPNEA, Problem 05/12/2020 MEDGEN (Ammir unspecified UNSPECIFIED 12:00:00 AM Xiomara EDT Physician) R06.00 Dyspnea, DYSPNEA, Problem 05/12/2020 MEDGEN (Ammir unspecified UNSPECIFIED 12:00:00 AM Xiomara EDT Physician) E87.5 Hyperkalemia HYPERKALEMIA Problem 02/18/2020 MEDGEN (Am esha 12:00:00 AM Xiomara EDT Physician) Z48.89 Encounter for ENCOUNTER FOR Problem 02/18/2020 MEDGEN ( Ammir other specified OTHER SPECIFIED 12:00:00 AM Rab montse surgical aftercare SURGICAL AFTERCARE EDT Physician) E87.5 Hyperkalemia HYPERKALEMIA Problem 02/18/2020 MEDGEN (Am esha 12:00:00 AM Xiomara EDT Physician) Z48.89 Encounter for ENCOUNTER FOR Problem 02/18/2020 MEDGEN ( Ammir other specified OTHER SPECIFIED 12:00:00 AM Rab montse surgical aftercare SURGICAL AFTERCARE EDT Physician) E87.5 Hyperkalemia HYPERKALEMIA Problem 02/18/2020 MEDGEN (Am esha 12:00:00 AM Xiomara EDT Physician) Z48.89 Encounter for ENCOUNTER FOR Problem 02/18/2020 MEDGEN ( Ammir other specified OTHER SPECIFIED 12:00:00 AM Rab [place]se surgical aftercare SURGICAL AFTERCARE EDT Physician) 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 0 MEDGEN (Ammir nodule NODULE 12:00:00 AM Xiomara EDT Physician) J03.90 Acute tonsillitis, ACUTE TONSILLITIS, Problem 0 MEDGEN (Ammir unspecified UNSPECIFIED 12:00:00 AM Xiomara EDT Physician) 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 0 MEDGEN (Ammir nodule NODULE 12:00:00 AM Xiomara EDT Physician) J03.90 Acute tonsillitis, ACUTE TONSILLITIS, Problem 0 MEDGEN (Ammir unspecified UNSPECIFIED 12:00:00 AM Xiomara EDT Physician) 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 0 MEDGEN (Ammir nodule NODULE 12:00:00 AM Xiomara EDT Physician) J03.90 Acute tonsillitis, ACUTE TONSILLITIS, Problem 0 MEDGEN (Ammir unspecified UNSPECIFIED 12:00:00 AM Xiomara EDT Physician) D64.9 Anemia, ANEMIA, Problem 01/28/2020 MEDGEN (Ammir unspecified UNSPECIFIED 12:00:00 AM Xiomara EDT Physician) D64.9 Anemia, ANEMIA, Problem 01/28/2020 MEDGEN (Ammir unspecified UNSPECIFIED 12:00:00 AM Xiomara EDT Physician) D64.9 Anemia, ANEMIA, Problem 01/28/2020 MEDGEN (Ammir unspecified UNSPECIFIED 12:00:00 AM Xiomara EDT Physician) L66.2 Folliculitis FOLLICULITIS Problem 01/23/2020 MEDGEN (Am esha decalvans DECALVANS 12:00:00 AM Xiomara EDT Physician) R50.9 Fever, unspecified FEVER, UNSPECIFIED Problem 0 MEDGEN (Ammir 12:00:00 AM Xiomara EDT Physician) L66.2 Folliculitis FOLLICULITIS Problem 01/23/2020 MEDGEN (Am esha decalvans DECALVANS 12:00:00 AM Xiomara EDT Physician) R50.9 Fever, unspecified FEVER, UNSPECIFIED Problem 0 MEDGEN (Ammir 12:00:00 AM Xiomara EDT Physician) L66.2 Folliculitis FOLLICULITIS Problem 01/23/2020 MEDGEN (Am esha decalvans DECALVANS 12:00:00 AM Xiomara EDT Physician) R50.9 Fever, unspecified FEVER, UNSPECIFIED Problem 0 MEDGEN (Ammir 12:00:00 AM Xiomara EDT Physician) E78.5 Hyperlipidemia, HYPERLIPIDEMIA, Problem 01/07/2020 MEDG EN (Ammir unspecified UNSPECIFIED 12:00:00 AM Xiomara EDT Physician) E78.5 Hyperlipidemia, HYPERLIPIDEMIA, Problem 01/07/2020 MEDG EN (Ammir unspecified UNSPECIFIED 12:00:00 AM Xiomara EDT Physician) E78.5 Hyperlipidemia, HYPERLIPIDEMIA, Problem 01/07/2020 MEDG EN (Ammir unspecified UNSPECIFIED 12:00:00 AM Xiomara EDT Physician) Z01.818 Encounter for ENCOUNTER FOR Problem 12/03/2019 MEDGEN ( Ammir other OTHER 12:00:00 AM Xiomara preprocedural PREPROCEDURAL EDT Physicia n) examination EXAMINATION Z01.818 Encounter for ENCOUNTER FOR Problem 12/03/2019 MEDGEN ( Ammir other OTHER 12:00:00 AM Xiomara preprocedural PREPROCEDURAL EDT Physicia n) examination EXAMINATION Z01.818 Encounter for ENCOUNTER FOR Problem 12/03/2019 MEDGEN ( Ammir other OTHER 12:00:00 AM Xiomara preprocedural PREPROCEDURAL EDT Physicia n) examination EXAMINATION N19 Unspecified kidney UNSPECIFIED KIDNEY Problem 9 MEDGEN (Ammir failure FAILURE 12:00:00 AM Xiomara EST Physician) N19 Unspecified kidney UNSPECIFIED KIDNEY Problem 9 MEDGEN (Ammir failure FAILURE 12:00:00 AM Xiomara EST Physician) N19 Unspecified kidney UNSPECIFIED KIDNEY Problem 9 MEDGEN (Ammir failure FAILURE 12:00:00 AM Xiomara EST Physician) Z01.818 Encounter for ENCOUNTER FOR Diagnosis 10/22/[address] other OTHER 11:51:00 AM [facility] preprocedural PREPROCEDURAL EST Care examination EXAMINATION Corporation Z76.82 Awaiting organ AWAITING ORGAN Diagnosis 10/22/2019 [place] transplant status TRANSPLANT STATUS 06:00:00 AM [facility] N18.6 End stage renal END STAGE RENAL Diagnosis 10/22/2019 [place] disease DISEASE 06:00:00 AM [facility] Surgeries/Procedures Procedure Description Date Indications Data Source(s) Documentation of current 06/02/2020 MED GEN (Ammir Xiomara medications (procedure) 12:00:00 AM EDT P hysician) Documentation of current 06/02/2020 MED GEN (Ammir Xiomara medications (procedure) 12:00:00 AM EDT P hysician) Medication Reconciliation 06/02/2020 ME DGEN (Ammir Xiomara (procedure) 12:00:00 AM EDT Physician) Documentation of current 06/02/2020 MED GEN (Ammir Xiomara medications (procedure) 12:00:00 AM EDT P hysician) Documentation of current 06/02/2020 MED GEN (Ammir Xiomara medications (procedure) 12:00:00 AM EDT P hysician) Documentation of current 06/02/2020 MED GEN (Ammir Xiomara medications (procedure) 12:00:00 AM EDT P hysician) Medication Reconciliation 06/02/2020 ME DGEN (Ammir Xiomara (procedure) 12:00:00 AM EDT Physician) Documentation of current 06/02/2020 MED GEN (Ammir Xiomara medications (procedure) 12:00:00 AM EDT P hysician) Documentation of current 01/28/2020 MED GEN (Ammir Xiomara medications (procedure) 12:00:00 AM EDT P hysician) Documentation of current 01/28/2020 MED GEN (Ammir Xiomara medications (procedure) 12:00:00 AM EDT P hysician) Documentation of current 01/28/2020 MED GEN (Ammir Xiomara medications (procedure) 12:00:00 AM EDT P hysician) Documentation of current 01/28/2020 MED GEN (Ammir Xiomara medications (procedure) 12:00:00 AM EDT P hysician) Documentation of current 01/28/2020 MED GEN (Ammir Xiomara medications (procedure) 12:00:00 AM EDT P hysician) Documentation of current 01/28/2020 MED GEN (Ammir Xiomara medications (procedure) 12:00:00 AM EDT P hysician) Medication Reconciliation 01/28/2020 ME DGEN (Ammir Xiomara (procedure) 12:00:00 AM EDT Physician) Documentation of current 01/28/2020 MED GEN (Ammir Xiomara medications (procedure) 12:00:00 AM EDT P hysician) Documentation of current 01/28/2020 MED GEN (Ammir Xiomara medications (procedure) 12:00:00 AM EDT P hysician) Documentation of current 01/28/2020 MED GEN (Ammir Xiomara medications (procedure) 12:00:00 AM EDT P hysician) Documentation of current 01/28/2020 MED GEN (Ammir Xiomara medications (procedure) 12:00:00 AM EDT P hysician) Documentation of current 01/28/2020 MED GEN (Ammir Xiomara medications (procedure) 12:00:00 AM EDT P hysician) Documentation of current 01/28/2020 MED GEN (Ammir Xiomara medications (procedure) 12:00:00 AM EDT P hysician) Documentation of current 01/28/2020 MED GEN (Ammir Xiomara medications (procedure) 12:00:00 AM EDT P hysician) Medication Reconciliation 01/28/2020 [place] DGEN (Ammir Xiomara (procedure) 12:00:00 AM EDT Physician) Documentation of current 01/28/2020 MED GEN (Ammir Xiomara medications (procedure) 12:00:00 AM EDT P hysician) Documentation of current 01/28/2020 MED GEN (Ammir Xiomara medications (procedure) 12:00:00 AM EDT P hysician) Documentation of current 01/28/2020 MED GEN (Ammir Xiomara medications (procedure) 12:00:00 AM EDT P hysician) Documentation of current 01/28/2020 MED GEN (Ammir Xiomara medications (procedure) 12:00:00 AM EDT P hysician) Documentation of current 01/28/2020 MED GEN (Ammir Xiomara medications (procedure) 12:00:00 AM EDT P hysician) Documentation of current 01/28/2020 MED GEN (Ammir Xiomara medications (procedure) 12:00:00 AM EDT P hysician) Documentation of current 01/28/2020 MED GEN (Ammir Xiomara medications (procedure) 12:00:00 AM EDT P hysician) Medication Reconciliation 01/28/2020 ME DGEN (Ammir Xiomara (procedure) 12:00:00 AM EDT Physician) Documentation of current 01/28/2020 MED GEN (Ammir Xiomara medications (procedure) 12:00:00 AM EDT P hysician) Medication Reconciliation 01/23/2020 ME DGEN (Ammir Xiomara (procedure) 12:00:00 AM EDT Physician) Documentation of current 01/23/2020 MED GEN (Ammir Xiomara medications (procedure) 12:00:00 AM EDT P hysician) Medication Reconciliation 01/23/2020 [place] DGEN (Ammir Xiomara (procedure) 12:00:00 AM EDT Physician) Documentation of current 01/23/2020 MED GEN (Ammir Xiomara medications (procedure) 12:00:00 AM EDT P hysician) Medication Reconciliation 01/23/2020 [facility] DGEN (Ammir Xiomara (procedure) 12:00:00 AM EDT Physician) Documentation of current 01/23/2020 MED GEN (Ammir Xiomara medications (procedure) 12:00:00 AM EDT P hysician) Documentation of current 12/03/2019 MED GEN (Ammir Xiomara medications (procedure) 12:00:00 AM EDT P hysician) Documentation of current 12/03/2019 MED GEN (Ammir Xiomara medications (procedure) 12:00:00 AM EDT P hysician) Documentation of current 12/03/2019 MED GEN (Ammir Xiomara medications (procedure) 12:00:00 AM EDT P hysician) Documentation of current 12/03/2019 MED GEN (Ammir Xiomara medications (procedure) 12:00:00 AM EDT P hysician) Documentation of current 12/03/2019 MED GEN (Ammir Xiomara medications (procedure) 12:00:00 AM EDT P hysician) Documentation of current 12/03/2019 MED GEN (Ammir Xiomara medications (procedure) 12:00:00 AM EDT P hysician) Documentation of current 12/03/2019 MED GEN (Ammir Xiomara medications (procedure) 12:00:00 AM EDT P hysician) Documentation of current 12/03/2019 MED GEN (Ammir Xiomara medications (procedure) 12:00:00 AM EDT P hysician) Documentation of current 12/03/2019 MED GEN (Ammir Xiomara medications (procedure) 12:00:00 AM EDT P hysician) Documentation of current 12/03/2019 MED GEN (Ammir Xiomara medications (procedure) 12:00:00 AM EDT P hysician) Documentation of current 12/03/2019 MED GEN (Ammir Xiomara medications (procedure) 12:00:00 AM EDT P hysician) Documentation of current 12/03/2019 MED GEN (Ammir Xiomara medications (procedure) 12:00:00 AM EDT P hysician) Documentation of current 12/03/2019 MED GEN (Ammir Xiomara medications (procedure) 12:00:00 AM EDT P hysician) Documentation of current 12/03/2019 MED GEN (Ammir Xiomara medications (procedure) 12:00:00 AM EDT P hysician) Documentation of current 12/03/2019 MED GEN (Ammir Xiomara medications (procedure) 12:00:00 AM EDT P hysician) Documentation of current 12/03/2019 MED GEN (Ammir Xiomara medications (procedure) 12:00:00 AM EDT P hysician) Documentation of current 12/03/2019 MED GEN (Ammir Xiomara medications (procedure) 12:00:00 AM EDT P hysician) Documentation of current 12/03/2019 MED GEN (Ammir Xiomara medications (procedure) 12:00:00 AM EDT P hysician) Documentation of current 12/03/2019 MED GEN (Ammir Xiomara medications (procedure) 12:00:00 AM EDT P hysician) Documentation of current 12/03/2019 MED GEN (Ammir Xiomara medications (procedure) 12:00:00 AM EDT P hysician) Documentation of current 12/03/2019 MED GEN (Ammir Xiomara medications (procedure) 12:00:00 AM EDT P hysician) Documentation of current 08/20/2019 MED GEN (Ammir Xiomara medications (procedure) 12:00:00 AM EST P hysician) Documentation of current 08/20/2019 MED GEN (Ammir Xiomara medications (procedure) 12:00:00 AM EST P hysician) Documentation of current 08/20/2019 MED GEN (Ammir Xiomara medications (procedure) 12:00:00 AM EST P hysician) Documentation of current 08/20/2019 MED GEN (Ammir Xiomara medications (procedure) 12:00:00 AM EST P hysician) Documentation of current 08/20/2019 MED GEN (Ammir Xiomara medications (procedure) 12:00:00 AM EST P hysician) Documentation of current 08/20/2019 MED GEN (Ammir Xiomara medications (procedure) 12:00:00 AM EST P hysician) Documentation of current 08/20/2019 MED GEN (Ammir Xiomara medications (procedure) 12:00:00 AM EST P hysician) Documentation of current 08/20/2019 MED GEN (Ammir Xiomara medications (procedure) 12:00:00 AM EST P hysician) Documentation of current 08/20/2019 MED GEN (Ammir Xiomara medications (procedure) 12:00:00 AM EST P hysician) Documentation of current 08/20/2019 MED GEN (Ammir Xiomara medications (procedure) 12:00:00 AM EST P hysician) Documentation of current 08/20/2019 MED GEN (Ammir Xiomara medications (procedure) 12:00:00 AM EST P hysician) Documentation of current 08/20/2019 [facility] (Ammir [facility] medications (procedure) 12:00:00 AM EST P hysician) Documentation of current 08/20/2019 [facility] (Ammir [facility] medications (procedure) 12:00:00 AM EST P hysician) Documentation of current 08/20/2019 [facility] (Ammir [facility] medications (procedure) 12:00:00 AM EST P hysician) Documentation of current 08/20/2019 [facility] (Ammir [facility] medications (procedure) 12:00:00 AM EST P hysician) Documentation of current 07/24/2019 MED [facility] (Ammir [facility] medications (procedure) 12:00:00 AM EST P hysician) Documentation of current 07/24/2019 [facility] (Ammir [facility] medications (procedure) 12:00:00 AM EST P hysician) Documentation of current 07/24/2019 [facility] (Ammir [facility] medications (procedure) 12:00:00 AM EST P hysician) Documentation of current 07/24/2019 [facility] (Ammir [facility] medications (procedure) 12:00:00 AM EST P hysician) Documentation of current 07/24/2019 [facility] (Ammir [facility] medications (procedure) 12:00:00 AM EST P hysician) Documentation of current 07/24/2019 MED [facility] (Ammir [facility] medications (procedure) 12:00:00 AM EST P hysician) Documentation of current 07/24/2019 [facility] (Ammir [facility] medications (procedure) 12:00:00 AM EST P hysician) Documentation of current 07/24/2019 [facility] (Ammir [facility] medications (procedure) 12:00:00 AM EST P hysician) Documentation of current 07/24/2019 [facility] (Ammir [facility] medications (procedure) 12:00:00 AM EST P hysician) Documentation of current 07/24/2019 MED [facility] (Ammir [facility] medications (procedure) 12:00:00 AM EST P hysician) Documentation of current 07/24/2019 MED [facility] (Ammir [facility] medications (procedure) 12:00:00 AM EST P hysician) Documentation of current 07/24/2019 MED [facility] (Ammir [facility] medications (procedure) 12:00:00 AM EST P hysician) Documentation of current 07/24/2019 MED [facility] (Ammir [facility] medications (procedure) 12:00:00 AM EST P hysician) Documentation of current 07/24/2019 MED GEN (Ammir [facility] medications (procedure) 12:00:00 AM EST P hysician) Documentation of current 07/24/2019 MED [facility] (Ammir [facility] medications (procedure) 12:00:00 AM EST P hysician) Documentation of current 07/24/2019 MED [facility] (Ammir [facility] medications (procedure) 12:00:00 AM EST P hysician) Documentation of current 07/24/2019 MED GEN (Ammir [facility] medications (procedure) 12:00:00 AM EST P hysician) Documentation of current 07/24/2019 MED GEN (Ammir [facility] medications (procedure) 12:00:00 AM EST P hysician) Documentation of current 07/24/2019 MED GEN (Ammir [facility] medications (procedure) 12:00:00 AM EST P hysician) Documentation of current 07/24/2019 MED [facility] (Ammir [facility] medications (procedure) 12:00:00 AM EST P hysician) Documentation of current 07/24/2019 MED GEN (Ammir [facility] medications (procedure) 12:00:00 AM EST P hysician) Documentation of current 07/24/2019 MED GEN (Ammir [facility] medications (procedure) 12:00:00 AM EST P hysician) Documentation of current 07/24/2019 MED [facility] (Ammir [facility] medications (procedure) 12:00:00 AM EST P hysician) Documentation of current 07/24/2019 MED [facility] (Ammir [facility] medications (procedure) 12:00:00 AM EST P hysician) Results ID Date Data Source [id number] 05/13/2020 05:50:00 AM EDT [facility] Name Value Range Interpretation Description Data Sup porting Code Source(s) Document(s ) SARS [facility] coronavirus 2 RNA This lab was ordered by [facility] and reported by [facility]. ID Date Data Source [id number] 02/19/2020 12:00:00 AM EDT [facility] (Ammir [facility] Physician) Name Value Range Interpretation Description Data Sup porting Code Source(s) Document(s ) WBC 7.6 Normal (applies [facility] 10(3)/uL to non-numeric (Ammir results) [facility] Physician) RBC 2.9 Below low normal [facility] 10(6)/uL (Ammir [facility] Physician) Hematocrit 25.9 % Below low normal [facility] [Pure volume (Ammir fraction] of [facility] Blood by Physician) Automated count Hemoglobin 9.2 g/dL Below low normal [facility] [Mass/volume] (Ammir in Mixed venous [facility] blood by Physician) Oximetry MCV 89.6 fL Normal (applies [facility] to non-numeric (Ammir results) [facility] Physician) MCH 32 pg Normal (applies [facility] to non-numeric (Ammir results) [facility] Physician) MCHC 36 g/dL Above high normal [facility] (Ammir [facility] Physician) RDWSD 38.9 fL Normal (applies [facility] to non-numeric (Ammir results) [facility] Physician) RDWCV 12.0 % Normal (applies [facility] to non-numeric (Ammir results) [facility] Physician) Platelet Count 285 Normal (applies [facility] 10(3)/uL to non-numeric (Ammir results) [facility] Physician) Neutrophil Abs 5.47 Normal (applies [facility] 10(3)/uL to non-numeric (Ammir results) [facility] Physician) MPV 8.7 fL Below low normal [facility] (Ammir [facility] Physician) Lymphocyte Abs 0.95 Normal (applies [facility] 10(3)/uL to non-numeric (Ammir results) [facility] Physician) Monocyte Abs 0.64 Normal (applies [facility] 10(3)/uL to non-numeric (Ammir results) [facility] Physician) Eosinophil Abs 0.47 Above high normal [facility] 10(3)/uL (Ammir [facility] Physician) Basophil Abs 0.02 Normal (applies [facility] 10(3)/uL to non-numeric (Ammir results) [facility] Physician) Neutrophil % 71.70 % Normal (applies [facility] to non-numeric (Ammir results) [facility] Physician) Immature 0.07 Normal (applies [facility] Granulocyte Abs 10(3)/uL to non-numeric (Ammir results) [facility] Physician) Lymphocyte % 13 % Below low normal [facility] (Ammir [facility] Physician) Monocyte % 8.4 % Normal (applies [facility] to non-numeric (Ammir results) [facility] Physician) Eosinophil % 6.2 % Normal (applies [facility] to non-numeric (Ammir results) [facility] Physician) Basophil % 0.3 % Normal (applies [facility] to non-numeric (Ammir results) [facility] Physician) Immature 0.90 % Normal (applies [facility] Granulocyte % to non-numeric (Ammir results) [facility] Physician) NRBC % 0.0 % Normal (applies [facility] to non-numeric (Ammir results) [facility] Physician) NRBC Abs 0.00 Normal (applies [facility] 10(3)/uL to non-numeric (Ammir results) [facility] Physician) ID Date Data Source [id number] 02/19/2020 12:00:00 AM EDT [facility] (Ammir [facility] Physician) Name Value Range Interpretation Description Data Sup porting Code Source(s) Document(s ) PHOSPHATE 5.7 mg/dL Above high normal [facility] (Ammi r (PHOSPHORUS) [facility] Physician) ID Date Data Source [id number] 02/19/2020 12:00:00 AM EDT [facility] (Ammir [facility] Physician) Name Value Range Interpretation Description Data Sup porting Code Source(s) Document(s ) HEPATITIS BS NONREACTIVE Normal (applies [facility] AG SCREEN to non-numeric (Ammir results) [facility] Physician) ID Date Data Source [id number] 02/19/2020 12:00:00 AM EDT [facility] (Ammir [facility] Physician) Name Value Range Interpretation Description Data Sup porting Code Source(s) Document(s ) PROTHROMBIN 11.4 sec Below low normal [facility] TIME, PT (Ammir [facility] Physician) INR 0.82 Below low normal [facility] (Ammir [facility] Physician) ID Date Data Source [id number] 02/19/2020 12:00:00 AM EDT [facility] (Ammir [facility] Physician) Name Value Range Interpretation Description Data Sup porting Code Source(s) Document(s ) GLUCOSE 230 Above high normal [facility] NONFASTING,SERUM mg/dL (Ammir [facility] Physician) SODIUM, SERUM 137 Normal (applies [facility] mEq/L to non-numeric (Ammir results) [facility] Physician) POTASSIUM, SERUM 4.9 Normal (applies [facility] mEq/L to non-numeric (Ammir results) [facility] Physician) CHLORIDE, SERUM 102 Normal (applies [facility] mEq/L to non-numeric (Ammir results) [facility] Physician) Carbon dioxide 23 mEq/L Normal (applies [facility] [VFr/PPres] in to non-numeric (Ammir Gas delivery results) [facility] system Physician) Anion gap in 17 mEq/L Normal (applies [facility] Body fluid to non-numeric (Ammir results) [facility] Physician) BLOOD UREA 69 mg/dL Above high normal [facility] NITROGEN (Ammir [facility] Physician) CREATININE, 5.70 Above high normal [facility] SERUM mg/dL (Ammir [facility] Physician) BUN/CREATININE 12.11 Normal (applies [facility] RATIO to non-numeric (Ammir results) [facility] Physician) CALCIUM, SERUM 8.1 Below low normal [facility] mg/dL (Ammir [facility] Physician) TOTAL PROTEIN 6.8 g/dL Normal (applies [facility] to non-numeric (Ammir results) [facility] Physician) Globulin 2.7 gldl Normal (applies [facility] [Mass/time] in to non-numeric (Ammir 24 hour Urine results) [facility] Physician) Microalbumin 4.1 g/dL Normal (applies [facility] [Mass/time] in to non-numeric (Ammir Urine collected results) [facility] for unspecified Physician) duration A/G RATIO 1.52 Normal (applies [facility] g/dl to non-numeric (Ammir results) [facility] Physician) BILIRUBIN, TOTAL 0.3 Normal (applies [facility] mg/dL to non-numeric (Ammir results) [facility] Physician) ALKALINE 100 U/L Normal (applies [facility] PHOSPHATASE, ALP to non-numeric (Ammir results) [facility] Physician) ALT (SGPT) 19 U/L Normal (applies [facility] to non-numeric (Ammir results) [facility] Physician) AST 23 U/L Normal (applies [facility] to non-numeric (Ammir results) [facility] Physician) EGFR AFR 13 Below low normal [facility] MALAWIAN mL/min/1 (Ammir .73m2 [facility] Physician) EGFR NON AFR 11 Below low normal [facility] MALAWIAN mL/min/1 (Ammir .73m2 [facility] Physician) ID Date Data Source [id number] 02/19/2020 12:00:00 AM EDT [facility] (Ammir [facility] Physician) Name Value Range Interpretation Description Data Sup porting Code Source(s) Document(s ) WBC 7.6 Normal (applies [facility] 10(3)/uL to non-numeric (Ammir results) [facility] Physician) RBC 2.9 Below low normal [facility] 10(6)/uL (Ammir [facility] Physician) Hematocrit 25.9 % Below low normal [facility] [Pure volume (Ammir fraction] of [facility] Blood by Physician) Automated count Hemoglobin 9.2 g/dL Below low normal [facility] [Mass/volume] (Ammir in Mixed venous [facility] blood by Physician) Oximetry MCV 89.6 fL Normal (applies [facility] to non-numeric (Ammir results) [facility] Physician) MCH 32 pg Normal (applies [facility] to non-numeric (Ammir results) [facility] Physician) RDWSD 38.9 fL Normal (applies [facility] to non-numeric (Ammir results) [facility] Physician) MCHC 36 g/dL Above high normal [facility] (Ammir [facility] Physician) RDWCV 12.0 % Normal (applies [facility] to non-numeric (Ammir results) [facility] Physician) Platelet Count 285 Normal (applies [facility] 10(3)/uL to non-numeric (Ammir results) [facility] Physician) Neutrophil Abs 5.47 Normal (applies [facility] 10(3)/uL to non-numeric (Ammir results) [facility] Physician) MPV 8.7 fL Below low normal [facility] (Ammir [facility] Physician) Lymphocyte Abs 0.95 Normal (applies [facility] 10(3)/uL to non-numeric (Ammir results) [facility] Physician) Monocyte Abs 0.64 Normal (applies [facility] 10(3)/uL to non-numeric (Ammir results) [facility] Physician) Basophil Abs 0.02 Normal (applies [facility] 10(3)/uL to non-numeric (Ammir results) [facility] Physician) Eosinophil Abs 0.47 Above high normal [facility] 10(3)/uL (Ammir [facility] Physician) Immature 0.07 Normal (applies [facility] Granulocyte Abs 10(3)/uL to non-numeric (Ammir results) [facility] Physician) Neutrophil % 71.70 % Normal (applies [facility] to non-numeric (Ammir results) [facility] Physician) Monocyte % 8.4 % Normal (applies [facility] to non-numeric (Ammir results) [facility] Physician) Lymphocyte % 13 % Below low normal [facility] (Ammir [facility] Physician) Eosinophil % 6.2 % Normal (applies [facility] to non-numeric (Ammir results) [facility] Physician) Basophil % 0.3 % Normal (applies [facility] to non-numeric (Ammir results) [facility] Physician) Immature 0.90 % Normal (applies [facility] Granulocyte % to non-numeric (Ammir results) [facility] Physician) NRBC % 0.0 % Normal (applies [facility] to non-numeric (Ammir results) [facility] Physician) NRBC Abs 0.00 Normal (applies [facility] 10(3)/uL to non-numeric (Ammir results) [facility] Physician) ID Date Data Source [id number] 02/19/2020 12:00:00 AM EDT [facility] (Ammir [facility] Physician) Name Value Range Interpretation Description Data Sup porting Code Source(s) Document(s ) PHOSPHATE 5.7 mg/dL Above high normal [facility] (Ammi r (PHOSPHORUS) [facility] Physician) ID Date Data Source [id number] 02/19/2020 12:00:00 AM EDT [facility] (Ammir [facility] Physician) Name Value Range Interpretation Description Data Sup porting Code Source(s) Document(s ) HEPATITIS BS NONREACTIVE Normal (applies [facility] AG SCREEN to non-numeric (Ammir results) [facility] Physician) ID Date Data Source [id number] 02/19/2020 12:00:00 AM EDT [facility] (Ammir [facility] Physician) Name Value Range Interpretation Description Data Sup porting Code Source(s) Document(s ) PROTHROMBIN 11.4 sec Below low normal [facility] TIME, PT (Ammir [facility] Physician) INR 0.82 Below low normal [facility] (Ammir [facility] Physician) ID Date Data Source [id number] 02/19/2020 12:00:00 AM EDT [facility] (Ammir [facility] Physician) Name Value Range Interpretation Description Data Sup porting Code Source(s) Document(s ) GLUCOSE 230 Above high normal [facility] NONFASTING,SERUM mg/dL (Ammir [facility] Physician) SODIUM, SERUM 137 Normal (applies [facility] mEq/L to non-numeric (Ammir results) [facility] Physician) POTASSIUM, SERUM 4.9 Normal (applies [facility] mEq/L to non-numeric (Ammir results) [facility] Physician) CHLORIDE, SERUM 102 Normal (applies [facility] mEq/L to non-numeric (Ammir results) [facility] Physician) Anion gap in 17 mEq/L Normal (applies [facility] Body fluid to non-numeric (Ammir results) [facility] Physician) Carbon dioxide 23 mEq/L Normal (applies [facility] [VFr/PPres] in to non-numeric (Ammir Gas delivery results) [facility] system Physician) BLOOD UREA 69 mg/dL Above high normal [facility] NITROGEN (Ammir [facility] Physician) BUN/CREATININE 12.11 Normal (applies [facility] RATIO to non-numeric (Ammir results) [facility] Physician) CREATININE, 5.70 Above high normal [facility] SERUM mg/dL (Ammir [facility] Physician) CALCIUM, SERUM 8.1 Below low normal [facility] mg/dL (Ammir [facility] Physician) TOTAL PROTEIN 6.8 g/dL Normal (applies [facility] to non-numeric (Ammir results) [facility] Physician) Microalbumin 4.1 g/dL Normal (applies [facility] [Mass/time] in to non-numeric (Ammir Urine collected results) [facility] for unspecified Physician) duration Globulin 2.7 gldl Normal (applies [facility] [Mass/time] in to non-numeric (Ammir 24 hour Urine results) [facility] Physician) A/G RATIO 1.52 Normal (applies [facility] g/dl to non-numeric (Ammir results) [facility] Physician) BILIRUBIN, TOTAL 0.3 Normal (applies [facility] mg/dL to non-numeric (Ammir results) [facility] Physician) ALT (SGPT) 19 U/L Normal (applies [facility] to non-numeric (Ammir results) [facility] Physician) ALKALINE 100 U/L Normal (applies [facility] PHOSPHATASE, ALP to non-numeric (Ammir results) [facility] Physician) AST 23 U/L Normal (applies [facility] to non-numeric (Ammir results) [facility] Physician) EGFR NON AFR 11 Below low normal [facility] MALAWIAN mL/min/1 (Ammir .73m2 [facility] Physician) EGFR AFR 13 Below low normal [facility] MALAWIAN mL/min/1 (Ammir .73m2 [facility] Physician) ID Date Data Source [id number] 02/19/2020 12:00:00 AM EDT [facility] (Ammir [facility] Physician) Name Value Range Interpretation Description Data Sup porting Code Source(s) Document(s ) WBC 7.6 Normal (applies [facility] 10(3)/uL to non-numeric (Ammir results) [facility] Physician) RBC 2.9 Below low normal [facility] 10(6)/uL (Ammir [facility] Physician) Hemoglobin 9.2 g/dL Below low normal [facility] [Mass/volume] (Ammir in Mixed venous [facility] blood by Physician) Oximetry MCV 89.6 fL Normal (applies [facility] to non-numeric (Ammir results) [facility] Physician) Hematocrit 25.9 % Below low normal [facility] [Pure volume (Ammir fraction] of [facility] Blood by Physician) Automated count MCH 32 pg Normal (applies [facility] to non-numeric (Ammir results) [facility] Physician) RDWSD 38.9 fL Normal (applies [facility] to non-numeric (Ammir results) [facility] Physician) MCHC 36 g/dL Above high normal [facility] (Ammir [facility] Physician) RDWCV 12.0 % Normal (applies [facility] to non-numeric (Ammir results) [facility] Physician) Platelet Count 285 Normal (applies [facility] 10(3)/uL to non-numeric (Ammir results) [facility] Physician) Neutrophil Abs 5.47 Normal (applies [facility] 10(3)/uL to non-numeric (Ammir results) [facility] Physician) MPV 8.7 fL Below low normal [facility] (Ammir [facility] Physician) Lymphocyte Abs 0.95 Normal (applies [facility] 10(3)/uL to non-numeric (Ammir results) [facility] Physician) Monocyte Abs 0.64 Normal (applies [facility] 10(3)/uL to non-numeric (Ammir results) [facility] Physician) Eosinophil Abs 0.47 Above high normal [facility] 10(3)/uL (Ammir [facility] Physician) Basophil Abs 0.02 Normal (applies [facility] 10(3)/uL to non-numeric (Ammir results) [facility] Physician) Immature 0.07 Normal (applies [facility] Granulocyte Abs 10(3)/uL to non-numeric (Ammir results) [facility] Physician) Lymphocyte % 13 % Below low normal [facility] (Ammir [facility] Physician) Neutrophil % 71.70 % Normal (applies [facility] to non-numeric (Ammir results) [facility] Physician) Monocyte % 8.4 % Normal (applies [facility] to non-numeric (Ammir results) [facility] Physician) Eosinophil % 6.2 % Normal (applies [facility] to non-numeric (Ammir results) [facility] Physician) Immature 0.90 % Normal (applies [facility] Granulocyte % to non-numeric (Ammir results) [facility] Physician) Basophil % 0.3 % Normal (applies [facility] to non-numeric (Ammir results) [facility] Physician) NRBC % 0.0 % Normal (applies [facility] to non-numeric (Ammir results) [facility] Physician) NRBC Abs 0.00 Normal (applies [facility] 10(3)/uL to non-numeric (Ammir results) [facility] Physician) ID Date Data Source [id number] 02/19/2020 12:00:00 AM EDT [facility] (Ammir [facility] Physician) Name Value Range Interpretation Description Data Sup porting Code Source(s) Document(s ) PHOSPHATE 5.7 mg/dL Above high normal [facility] (Ammi r (PHOSPHORUS) [facility] Physician) ID Date Data Source [id number] 02/19/2020 12:00:00 AM EDT [facility] (Ammir [facility] Physician) Name Value Range Interpretation Description Data Sup porting Code Source(s) Document(s ) HEPATITIS BS NONREACTIVE Normal (applies [facility] AG SCREEN to non-numeric (Ammir results) [facility] Physician) ID Date Data Source [id number] 02/19/2020 12:00:00 AM EDT [facility] (Ammir [facility] Physician) Name Value Range Interpretation Description Data Sup porting Code Source(s) Document(s ) PROTHROMBIN 11.4 sec Below low normal [facility] TIME, PT (Ammir [facility] Physician) INR 0.82 Below low normal [facility] (Ammir [facility] Physician) ID Date Data Source [id number] 02/19/2020 12:00:00 AM EDT [facility] (Ammir [facility] Physician) Name Value Range Interpretation Description Data Sup porting Code Source(s) Document(s ) GLUCOSE 230 Above high normal [facility] NONFASTING,SERUM mg/dL (Ammir [facility] Physician) SODIUM, SERUM 137 Normal (applies [facility] mEq/L to non-numeric (Ammir results) [facility] Physician) POTASSIUM, SERUM 4.9 Normal (applies [facility] mEq/L to non-numeric (Ammir results) [facility] Physician) CHLORIDE, SERUM 102 Normal (applies [facility] mEq/L to non-numeric (Ammir results) [facility] Physician) Carbon dioxide 23 mEq/L Normal (applies [facility] [VFr/PPres] in to non-numeric (Ammir Gas delivery results) [facility] system Physician) Anion gap in 17 mEq/L Normal (applies [facility] Body fluid to non-numeric (Ammir results) [facility] Physician) BLOOD UREA 69 mg/dL Above high normal [facility] NITROGEN (Ammir [facility] Physician) BUN/CREATININE 12.11 Normal (applies [facility] RATIO to non-numeric (Ammir results) [facility] Physician) CREATININE, 5.70 Above high normal [facility] SERUM mg/dL (Ammir [facility] Physician) CALCIUM, SERUM 8.1 Below low normal [facility] mg/dL (Ammir [facility] Physician) Microalbumin 4.1 g/dL Normal (applies [facility] [Mass/time] in to non-numeric (Ammir Urine collected results) [facility] for unspecified Physician) duration TOTAL PROTEIN 6.8 g/dL Normal (applies [facility] to non-numeric (Ammir results) [facility] Physician) Globulin 2.7 gldl Normal (applies [facility] [Mass/time] in to non-numeric (Ammir 24 hour Urine results) [facility] Physician) A/G RATIO 1.52 Normal (applies [facility] g/dl to non-numeric (Ammir results) [facility] Physician) ALKALINE 100 U/L Normal (applies [facility] PHOSPHATASE, ALP to non-numeric (Ammir results) [facility] Physician) BILIRUBIN, TOTAL 0.3 Normal (applies [facility] mg/dL to non-numeric (Ammir results) [facility] Physician) ALT (SGPT) 19 U/L Normal (applies [facility] to non-numeric (Ammir results) [facility] Physician) AST 23 U/L Normal (applies [facility] to non-numeric (Ammir results) [facility] Physician) EGFR NON AFR 11 Below low normal [facility] MAL[place]IAN mL/min/1 (Ammir .73m2 [facility] Physician) EGFR AFR 13 Below low normal [facility] MAL[place]IAN mL/min/1 (Ammir .73m2 [facility] Physician) ID Date Data Source [id number] 02/11/2020 03:31:00 PM EDT [facility] Name Value Range Interpretation Code Description Data Ariane rce(s) Supporting Document(s ) SARS-COV-2 [facility]P [facility] QL SIM+PROBE This lab was ordered by [facility] and reported by [employer] [facility]. ID Date Data Source [id number] 01/29/2020 12:00:00 AM EDT [facility] (Ammir [facility] Physician) Name Value Range Interpretation Description Data Sup porting Code Source(s) Document(s ) SARS-COV- Not Detected Normal (applies to [facility] ( Ammir 2 non-numeric [facility] results) Physician) ID Date Data Source [id number] 01/29/2020 12:00:00 AM EDT [facility] (Ammir [facility] Physician) Name Value Range Interpretation Description Data Sup porting Code Source(s) Document(s ) GLUCOSE UA >=500 Abnormal [facility] (applies to (Ammir non-numeric [facility] results) Physician) BILIRUBIN, TOTAL NEGATIVE Normal (applies [facility] to non-numeric (Ammir results) [facility] Physician) Ketones NEGATIVE Normal (applies [facility] [Presence] in to non-numeric (Ammir Blood by Tablet results) [facility] Physician) Blood [Presence] NEGATIVE Normal (applies [facility] in Urine by to non-numeric (Ammir Visual results) [facility] Physician) Specific gravity 1.013 SG Normal (applies [facility] of Pericardial units to non-numeric (Ammir fluid by results) [facility] Refractometry Physician) pH of Lower 6 Ph units Normal (applies [facility] respiratory to non-numeric (Ammir specimen results) [facility] Physician) Protein >=500 Abnormal [facility] [Mass/volume] in (applies to (Ammir Lower non-numeric [facility] respiratory results) Physician) specimen Urobilinogen 0-2.0 Normal (applies [facility] [Presence] in to non-numeric (Ammir Urine by results) [facility] Automated test Physician) strip Nitrite NEGATIVE Normal (applies [facility] [Presence] in to non-numeric (Ammir Urine by Test results) [facility] strip Physician) Leukocyte NEGATIVE Normal (applies [facility] esterase to non-numeric (Ammir [Presence] in results) [facility] Body fluid by Physician) Automated test strip Color of YELLOW Normal (applies [facility] Peritoneal to non-numeric (Ammir dialysis fluid results) [facility] Physician) TRANSPARENCY CLEAR Normal (applies [facility] to non-numeric (Ammir results) [facility] Physician) RBC`S 0-4 Normal (applies [facility] to non-numeric (Ammir results) [facility] Physician) WBC`S 0-5 Normal (applies [facility] to non-numeric (Ammir results) [facility] Physician) MUCOUS FEW Normal (applies [facility] to non-numeric (Ammir results) [facility] Physician) ID Date Data Source [id number] 01/29/2020 12:00:00 AM EDT [facility] (Ammir [facility] Physician) Name Value Range Interpretation Description Data Sup porting Code Source(s) Document(s ) Ferritin 98.7 Normal (applies to [facility] (Amm ir [Interpretat ng/mL non-numeric [facility] ion] in results) Physician) Blood ID Date Data Source [id number] 01/29/2020 12:00:00 AM EDT [facility] (Ammir [facility] Physician) Name Value Range Interpretation Description Data Sup porting Code Source(s) Document(s ) WBC 8.8 Normal (applies [facility] 10(3)/uL to non-numeric (Ammir results) [facility] Physician) RBC 3.1 Below low normal [facility] 10(6)/uL (Ammir [facility] Physician) Hemoglobin 9.3 g/dL Below low normal [facility] [Mass/volume] (Ammir in Mixed venous [facility] blood by Physician) Oximetry MCV 88.7 fL Normal (applies [facility] to non-numeric (Ammir results) [facility] Physician) Hematocrit 27.4 % Below low normal [facility] [Pure volume (Ammir fraction] of [facility] Blood by Physician) Automated count MCH 30 pg Normal (applies [facility] to non-numeric (Ammir results) [facility] Physician) MCHC 34 g/dL Normal (applies [facility] to non-numeric (Ammir results) [facility] Physician) RDWSD 40.1 fL Normal (applies [facility] to non-numeric (Ammir results) [facility] Physician) RDWCV 12.3 % Normal (applies [facility] to non-numeric (Ammir results) [facility] Physician) Platelet Count 291 Normal (applies [facility] 10(3)/uL to non-numeric (Ammir results) [facility] Physician) MPV 8.8 fL Below low normal [facility] (Ammir [facility] Physician) Neutrophil Abs 5.76 Normal (applies [facility] 10(3)/uL to non-numeric (Ammir results) [facility] Physician) Lymphocyte Abs 1.49 Normal (applies [facility] 10(3)/uL to non-numeric (Ammir results) [facility] Physician) Monocyte Abs 0.77 Normal (applies [facility] 10(3)/uL to non-numeric (Ammir results) [facility]) Eosinophil Abs 0.59 Above high normal [facility] 10(3)/uL ([facility]) Basophil Abs 0.04 Normal (applies [facility] 10(3)/uL to non-numeric (Ammir results) [facility] Phys[facility]) Immature 0.11 Above high normal [facility] Granulocyte Abs 10(3)/uL ([facility]) Neutrophil % 65.70 % Normal (applies [facility] to non-numeric (Ammir results) [facility] Phys[facility]) Lymphocyte % 17 % Below low normal [facility] ([facility]ician) Monocyte % 8.8 % Normal (applies [facility] to non-numeric (Ammir results) [facility] Phys[facility]) Eosinophil % 6.7 % Normal (applies [facility] to non-numeric (Ammir results) [facility] Phys[facility]) Basophil % 0.5 % Normal (applies [facility] to non-numeric (Ammir results) [facility] Phys[facility]) Immature 1.30 % Above high normal [facility] Granulocyte % ([facility]mm[facility]) NRBC % 0.0 % Normal (applies [facility] to non-numeric (Ammir results) [facility] Phys[facility]) NRBC Abs 0.00 Normal (applies [facility] 10(3)/uL to non-numeric (Ammir results) [facility] Phys[facility]) ID Date Data Source [id number] 01/29/2020 12:00:00 AM EDT [facility] ([facility]) Name Value Range Interpretation Description Data Sup porting Code Source(s) Document(s ) Transferrin 210 mg/dL Normal (applies [facility] [Mass/time] in to non-numeric (Ammir 24 hour Urine results) [facility]) TIBC 294.5 Normal (applies [facility] ug/dL to non-numeric (Ammir results) [facility] Physician) UIBC 220.5 Normal (applies [facility] ug/dL to non-numeric (Ammir results) [facility] Physician) %SATURATION 25.1 % Normal (applies [facility] to non-numeric (Ammir results) [facility]) ID Date Data Source [id number] 01/29/2020 12:00:00 AM EDT [facility] ([facility]) Name Value Range Interpretation Code Description Data Ariane rce(s) Supporting Document(s ) IRON, 74 ug/dL Normal (applies to [facility] (Amm ir TOTAL non-numeric [facility] results) Physician) ID Date Data Source [id number] 01/29/2020 12:00:00 AM EDT [facility] ([facility]) Name Value Range Interpretation Description Data Sup porting Code Source(s) Document(s ) GLUCOSE 123 Normal (applies [facility] NONFASTING,SERUM mg/dL to non-numeric (Ammir results) [facility]) SODIUM, SERUM 143 Normal (applies [facility] mEq/L to non-numeric (Ammir results) [facility] Physician) POTASSIUM, SERUM 5.2 Normal (applies [facility] mEq/L to non-numeric (Ammir results) [facility] Physician) CHLORIDE, SERUM 111 Above high normal [facility] mEq/L (Ammir [facility] Physician) Carbon dioxide 23 mEq/L Normal (applies [facility] [VFr/PPres] in to non-numeric (Ammir Gas delivery results) [facility] system Physician) Anion gap in 14.2 Normal (applies [facility] Body fluid mEq/L to non-numeric (Ammir results) [facility] Physician) BLOOD UREA 50 mg/dL Above high normal [facility] NITROGEN (Ammir [facility] Phys[facility]) CREATININE, 5.20 Above high normal [facility] SERUM mg/dL (Ammir [facility] Physician) BUN/CREATININE 9.62 Normal (applies [facility] RATIO to non-numeric (Ammir results) [facility] Physician) CALCIUM, SERUM 8.8 Normal (applies [facility] mg/dL to non-numeric (Ammir results) [facility] Physician) TOTAL PROTEIN 6.9 g/dL Normal (applies [facility] to non-numeric (Ammir results) [facility] Physician) Microalbumin 4.2 g/dL Normal (applies [facility] [Mass/time] in to non-numeric (Ammir Urine collected results) [facility] for unspecified Physician) duration Globulin 2.7 gldl Normal (applies [facility] [Mass/time] in to non-numeric (Ammir 24 hour Urine results) [facility] Phys[facility]) A/G RATIO 1.56 Normal (applies [facility] g/dl to non-numeric (Ammir results) [facility] Physician) BILIRUBIN, TOTAL 0.3 Normal (applies [facility] mg/dL to non-numeric (Ammir results) [facility] Phys[facility]) ALKALINE 105 U/L Normal (applies [facility] PHOSPHATASE, ALP to non-numeric (Ammir results) [facility] Physician) ALT (SGPT) 18 U/L Normal (applies [facility] to non-numeric (Ammir results) [facility] Physician) AST 23 U/L Normal (applies [facility] to non-numeric (Ammir results) [facility] Physician) EGFR NON AFR 12 Below low normal [facility] MALAWIAN mL/min/1 (Ammir .73m2 [facility]) EGFR AFR 15 Below low normal [facility] MAL[place]IAN mL/min/1 (Ammir .73m2 [facility]) ID Date Data Source [id number] 01/29/2020 12:00:00 AM EDT [facility] ([facility]) Name Value Range Interpretation Description Data Sup porting Code Source(s) Document(s ) SARS-COV- Not Detected Normal (applies to [facility] ( Ammir 2 non-numeric [facility] results) Physician) ID Date Data Source [id number] 01/29/2020 12:00:00 AM EDT [facility] ([facility]) Name Value Range Interpretation Description Data Sup porting Code Source(s) Document(s ) GLUCOSE UA >=500 Abnormal [facility] (applies to (Ammir non-numeric [facility] results) Physician) BILIRUBIN, TOTAL NEGATIVE Normal (applies [facility] to non-numeric (Ammir results) [facility] Phys[facility]) Ketones NEGATIVE Normal (applies [facility] [Presence] in to non-numeric (Ammir Blood by Tablet results) [facility] Physician) Specific gravity 1.013 SG Normal (applies [facility] of Pericardial units to non-numeric (Ammir fluid by results) [facility] Refractometry Physician) Blood [Presence] NEGATIVE Normal (applies [facility] in Urine by to non-numeric (Ammir Visual results) [facility] Physician) pH of Lower 6 Ph units Normal (applies [facility] respiratory to non-numeric (Ammir specimen results) [facility] Phys[facility]) Protein >=500 Abnormal [facility] [Mass/volume] in (applies to (Ammir Lower non-numeric [facility] respiratory results) Physician) specimen Nitrite NEGATIVE Normal (applies [facility] [Presence] in to non-numeric (Ammir Urine by Test results) [facility] strip Physician) Urobilinogen 0-2.0 Normal (applies [facility] [Presence] in to non-numeric (Ammir Urine by results) [facility] Automated test Physician) strip Leukocyte NEGATIVE Normal (applies [facility] esterase to non-numeric (Ammir [Presence] in results) [facility] Body fluid by Physician) Automated test strip TRANSPARENCY CLEAR Normal (applies [facility] to non-numeric (Ammir results) [facility] Physician) Color of YELLOW Normal (applies [facility] Peritoneal to non-numeric (Ammir dialysis fluid results) [facility] Physician) RBC`S 0-4 Normal (applies [facility] to non-numeric (Ammir results) [facility] Physician) WBC`S 0-5 Normal (applies [facility] to non-numeric (Ammir results) [facility]) MUCOUS FEW Normal (applies [facility] to non-numeric (Ammir results) [facility] Phys[facility]) ID Date Data Source [id number] 01/29/2020 12:00:00 AM EDT [facility] ([facility]) Name Value Range Interpretation Description Data Sup porting Code Source(s) Document(s ) Ferritin 98.7 Normal (applies to [facility] (Amm ir [Interpretat ng/mL non-numeric [facility] ion] in results) Physician) Blood ID Date Data Source [id number] 01/29/2020 12:00:00 AM EDT [facility] ([facility]) Name Value Range Interpretation Description Data Sup porting Code Source(s) Document(s ) WBC 8.8 Normal (applies [facility] 10(3)/uL to non-numeric (Ammir results) [facility]) RBC 3.1 Below low normal [facility] 10(6)/uL (Ammir [facility]) Hemoglobin 9.3 g/dL Below low normal [facility] [Mass/volume] (Ammir in Mixed venous [facility] blood by Physician) Oximetry Hematocrit 27.4 % Below low normal [facility] [Pure volume (Ammir fraction] of [facility] Blood by Physician) Automated count MCV 88.7 fL Normal (applies [facility] to non-numeric (Ammir results) [facility] Physician) MCHC 34 g/dL Normal (applies [facility] to non-numeric (Ammir results) [facility] Physician) MCH 30 pg Normal (applies [facility] to non-numeric (Ammir results) [facility] Physician) RDWSD 40.1 fL Normal (applies [facility] to non-numeric (Ammir results) [facility] Physician) RDWCV 12.3 % Normal (applies [facility] to non-numeric (Ammir results) [facility] Physician) MPV 8.8 fL Below low normal [facility] (Ammir [facility] Physician) Platelet Count 291 Normal (applies [facility] 10(3)/uL to non-numeric (Ammir results) [facility]) Neutrophil Abs 5.76 Normal (applies [facility] 10(3)/uL to non-numeric (Ammir results) [facility]) Lymphocyte Abs 1.49 Normal (applies [facility] 10(3)/uL to non-numeric (Ammir results) [facility] Physician) Eosinophil Abs 0.59 Above high normal [facility] 10(3)/uL (Ammir [facility]) Monocyte Abs 0.77 Normal (applies [facility] 10(3)/uL to non-numeric (Ammir results) [facility]) Basophil Abs 0.04 Normal (applies [facility] 10(3)/uL to non-numeric (Ammir results) [facility]) Immature 0.11 Above high normal [facility] Granulocyte Abs 10(3)/uL (Ammir [facility]) Neutrophil % 65.70 % Normal (applies [facility] to non-numeric (Ammir results) [facility] Physician) Lymphocyte % 17 % Below low normal [facility] (Ammir [facility] Physician) Monocyte % 8.8 % Normal (applies [facility] to non-numeric (Ammir results) [facility] Physician) Eosinophil % 6.7 % Normal (applies [facility] to non-numeric (Ammir results) [facility] Physician) Immature 1.30 % Above high normal [facility] Granulocyte % (Ammir [facility] Physician) Basophil % 0.5 % Normal (applies [facility] to non-numeric (Ammir results) [facility]ician) NRBC % 0.0 % Normal (applies [facility] to non-numeric (Ammir results) [facility] Physician) NRBC Abs 0.00 Normal (applies [facility] 10(3)/uL to non-numeric (Ammir results) [facility] Physician) ID Date Data Source [id number] 01/29/2020 12:00:00 AM EDT [facility] ([facility]) Name Value Range Interpretation Description Data Sup porting Code Source(s) Document(s ) Transferrin 210 mg/dL Normal (applies [facility] [Mass/time] in to non-numeric (Ammir 24 hour Urine results) [facility]) UIBC 220.5 Normal (applies [facility] ug/dL to non-numeric (Ammir results) [facility] Physician) TIBC 294.5 Normal (applies [facility] ug/dL to non-numeric (Ammir results) [facility] Physician) %SATURATION 25.1 % Normal (applies [facility] to non-numeric (Ammir results) [facility] Physician) ID Date Data Source [id number] 01/29/2020 12:00:00 AM EDT [facility] ([facility]) Name Value Range Interpretation Code Description Data Ariane rce(s) Supporting Document(s ) IRON, 74 ug/dL Normal (applies to [facility] (Amm ir TOTAL non-numeric [facility] results) Physician) ID Date Data Source [id number] 01/29/2020 12:00:00 AM EDT [facility] ([facility]) Name Value Range Interpretation Description Data Sup porting Code Source(s) Document(s ) GLUCOSE 123 Normal (applies [facility] NONFASTING,SERUM mg/dL to non-numeric (Ammir results) [facility]) SODIUM, SERUM 143 Normal (applies [facility] mEq/L to non-numeric (Ammir results) [facility] Physician) CHLORIDE, SERUM 111 Above high normal [facility] mEq/L (Ammir [facility] Physician) POTASSIUM, SERUM 5.2 Normal (applies [facility] mEq/L to non-numeric (Ammir results) [facility] Physician) Carbon dioxide 23 mEq/L Normal (applies [facility] [VFr/PPres] in to non-numeric (Ammir Gas delivery results) [facility] system Physician) Anion gap in 14.2 Normal (applies [facility] Body fluid mEq/L to non-numeric (Ammir results) [facility] Physician) CREATININE, 5.20 Above high normal [facility] SERUM mg/dL (Ammir [facility] Physician) BLOOD UREA 50 mg/dL Above high normal [facility] NITROGEN (Ammir [facility] Physician) BUN/CREATININE 9.62 Normal (applies [facility] RATIO to non-numeric (Ammir results) [facility] Physician) CALCIUM, SERUM 8.8 Normal (applies [facility] mg/dL to non-numeric (Ammir results) [facility] Physician) TOTAL PROTEIN 6.9 g/dL Normal (applies [facility] to non-numeric (Ammir results) [facility] Physician) Microalbumin 4.2 g/dL Normal (applies [facility] [Mass/time] in to non-numeric (Ammir Urine collected results) [facility] for unspecified Physician) duration Globulin 2.7 gldl Normal (applies [facility] [Mass/time] in to non-numeric (Ammir 24 hour Urine results) [facility] Physician) A/G RATIO 1.56 Normal (applies [facility] g/dl to non-numeric (Ammir results) [facility] Physician) BILIRUBIN, TOTAL 0.3 Normal (applies [facility] mg/dL to non-numeric (Ammir results) [facility] Physician) ALKALINE 105 U/L Normal (applies [facility] PHOSPHATASE, ALP to non-numeric (Ammir results) [facility] Physician) ALT (SGPT) 18 U/L Normal (applies [facility] to non-numeric (Ammir results) [facility] Physician) EGFR NON AFR 12 Below low normal [facility] MAL[place]IAN mL/min/1 (Ammir .73m2 [facility]ician) AST 23 U/L Normal (applies [facility] to non-numeric (Ammir results) [facility] Physician) EGFR AFR 15 Below low normal [facility] MAL[place]IAN mL/min/1 (Ammir .73m2 [facility]ician) ID Date Data Source [id number] 01/29/2020 12:00:00 AM EDT [facility] ([facility]) Name Value Range Interpretation Description Data Sup porting Code Source(s) Document(s ) SARS-COV- Not Detected Normal (applies to [facility] ( Ammir 2 non-numeric [facility] results) Physician) ID Date Data Source [id number] 01/29/2020 12:00:00 AM EDT [facility] ([facility] Physician) Name Value Range Interpretation Description Data Sup porting Code Source(s) Document(s ) GLUCOSE UA >=500 Abnormal [facility] (applies to (Ammir non-numeric [facility] results) Physician) BILIRUBIN, TOTAL NEGATIVE Normal (applies [facility] to non-numeric (Ammir results) [facility] Physician) Ketones NEGATIVE Normal (applies [facility] [Presence] in to non-numeric (Ammir Blood by Tablet results) [facility] Physician) Specific gravity 1.013 SG Normal (applies [facility] of Pericardial units to non-numeric (Ammir fluid by results) [facility] Refractometry Physician) Blood [Presence] NEGATIVE Normal (applies [facility] in Urine by to non-numeric (Ammir Visual results) [facility] Physician) pH of Lower 6 Ph units Normal (applies [facility] respiratory to non-numeric (Ammir specimen results) [facility] Physician) Protein >=500 Abnormal [facility] [Mass/volume] in (applies to (Ammir Lower non-numeric [facility] respiratory results) Physician) specimen Urobilinogen 0-2.0 Normal (applies [facility] [Presence] in to non-numeric (Ammir Urine by results) [facility] Automated test Physician) strip Nitrite NEGATIVE Normal (applies [facility] [Presence] in to non-numeric (Ammir Urine by Test results) [facility] strip Physician) Color of YELLOW Normal (applies [facility] Peritoneal to non-numeric (Ammir dialysis fluid results) [facility] Physician) Leukocyte NEGATIVE Normal (applies [facility] esterase to non-numeric (Ammir [Presence] in results) [facility] Body fluid by Physician) Automated test strip TRANSPARENCY CLEAR Normal (applies [facility] to non-numeric (Ammir results) [facility] Physician) RBC`S 0-4 Normal (applies [facility] to non-numeric (Ammir results) [facility] Physician) MUCOUS FEW Normal (applies [facility] to non-numeric (Ammir results) [facility] Physician) WBC`S 0-5 Normal (applies [facility] to non-numeric (Ammir results) [facility] Physician) ID Date Data Source [id number] 01/29/2020 12:00:00 AM EDT [facility] ([facility] Physician) Name Value Range Interpretation Description Data Sup porting Code Source(s) Document(s ) Ferritin 98.7 Normal (applies to [facility] (Amm ir [Interpretat ng/mL non-numeric [facility] ion] in results) Physician) Blood ID Date Data Source [id number] 01/29/2020 12:00:00 AM EDT [facility] ([facility] Physician) Name Value Range Interpretation Description Data Sup porting Code Source(s) Document(s ) RBC 3.1 Below low normal [facility] 10(6)/uL (Ammir [facility] Physician) WBC 8.8 Normal (applies [facility] 10(3)/uL to non-numeric (Ammir results) [facility] Physician) Hemoglobin 9.3 g/dL Below low normal [facility] [Mass/volume] (Ammir in Mixed venous [facility] blood by Physician) Oximetry Hematocrit 27.4 % Below low normal [facility] [Pure volume (Ammir fraction] of [facility] Blood by Physician) Automated count MCV 88.7 fL Normal (applies [facility] to non-numeric (Ammir results) [facility] Physician) MCH 30 pg Normal (applies [facility] to non-numeric (Ammir results) [facility] Physician) MCHC 34 g/dL Normal (applies [facility] to non-numeric (Ammir results) [facility] Physician) RDWSD 40.1 fL Normal (applies [facility] to non-numeric (Ammir results) [facility] Physician) RDWCV 12.3 % Normal (applies [facility] to non-numeric (Ammir results) [facility] Physician) Platelet Count 291 Normal (applies [facility] 10(3)/uL to non-numeric (Ammir results) [facility] Physician) MPV 8.8 fL Below low normal [facility] (Ammir [facility] Physician) Neutrophil Abs 5.76 Normal (applies [facility] 10(3)/uL to non-numeric (Ammir results) [facility] Physician) Lymphocyte Abs 1.49 Normal (applies [facility] 10(3)/uL to non-numeric (Ammir results) [facility] Physician) Monocyte Abs 0.77 Normal (applies [facility] 10(3)/uL to non-numeric (Ammir results) [facility] Physician) Eosinophil Abs 0.59 Above high normal [facility] 10(3)/uL (Ammir [facility] Physician) Basophil Abs 0.04 Normal (applies [facility] 10(3)/uL to non-numeric (Ammir results) [facility] Physician) Neutrophil % 65.70 % Normal (applies [facility] to non-numeric (Ammir results) [facility] Physician) Immature 0.11 Above high normal [facility] Granulocyte Abs 10(3)/uL (Ammir [facility] Physician) Lymphocyte % 17 % Below low normal [facility] (Ammir [facility] Physician) Monocyte % 8.8 % Normal (applies [facility] to non-numeric (Ammir results) [facility] Physician) Eosinophil % 6.7 % Normal (applies [facility] to non-numeric (Ammir results) [facility] Physician) Basophil % 0.5 % Normal (applies [facility] to non-numeric (Ammir results) [facility] Physician) NRBC % 0.0 % Normal (applies [facility] to non-numeric (Ammir results) [facility] Physician) Immature 1.30 % Above high normal [facility] Granulocyte % (Ammir [facility] Physician) NRBC Abs 0.00 Normal (applies [facility] 10(3)/uL to non-numeric (Ammir results) [facility] Physician) ID Date Data Source [id number] 01/29/2020 12:00:00 AM EDT [facility] (Ammir [facility] Physician) Name Value Range Interpretation Description Data Sup porting Code Source(s) Document(s ) Transferrin 210 mg/dL Normal (applies [facility] [Mass/time] in to non-numeric (Ammir 24 hour Urine results) [facility] Physician) TIBC 294.5 Normal (applies [facility] ug/dL to non-numeric (Ammir results) [facility] Physician) UIBC 220.5 Normal (applies [facility] ug/dL to non-numeric (Ammir results) [facility] Physician) %SATURATION 25.1 % Normal (applies [facility] to non-numeric (Ammir results) [facility] Physician) ID Date Data Source [id number] 01/29/2020 12:00:00 AM EDT [facility] (Amm[facility] Physician) Name Value Range Interpretation Code Description Data Ariane rce(s) Supporting Document(s ) IRON, 74 ug/dL Normal (applies to [facility] (Amm ir TOTAL non-numeric [facility] results) Physician) ID Date Data Source [id number] 01/29/2020 12:00:00 AM EDT [facility] (Ammir [facility] Physician) Name Value Range Interpretation Description Data Sup porting Code Source(s) Document(s ) GLUCOSE 123 Normal (applies [facility] NONFASTING,SERUM mg/dL to non-numeric (Ammir results) [facility] Physician) SODIUM, SERUM 143 Normal (applies [facility] mEq/L to non-numeric (Ammir results) [facility] Physician) POTASSIUM, SERUM 5.2 Normal (applies [facility] mEq/L to non-numeric (Ammir results) [facility] Physician) CHLORIDE, SERUM 111 Above high normal [facility] mEq/L (Ammir [facility] Physician) Carbon dioxide 23 mEq/L Normal (applies [facility] [VFr/PPres] in to non-numeric (Ammir Gas delivery results) [facility] system Physician) BLOOD UREA 50 mg/dL Above high normal [facility] NITROGEN (Ammir [facility] Physician) Anion gap in 14.2 Normal (applies [facility] Body fluid mEq/L to non-numeric (Ammir results) [facility] Physician) CREATININE, 5.20 Above high normal [facility] SERUM mg/dL (Ammir [facility] Physician) BUN/CREATININE 9.62 Normal (applies [facility] RATIO to non-numeric (Ammir results) [facility] Physician) TOTAL PROTEIN 6.9 g/dL Normal (applies [facility] to non-numeric (Ammir results) [facility] Physician) CALCIUM, SERUM 8.8 Normal (applies [facility] mg/dL to non-numeric (Ammir results) [facility] Physician) Microalbumin 4.2 g/dL Normal (applies [facility] [Mass/time] in to non-numeric (Ammir Urine collected results) [facility] for unspecified Physician) duration Globulin 2.7 gldl Normal (applies [facility] [Mass/time] in to non-numeric (Ammir 24 hour Urine results) [facility] Physician) A/G RATIO 1.56 Normal (applies [facility] g/dl to non-numeric (Ammir results) [facility] Physician) BILIRUBIN, TOTAL 0.3 Normal (applies [facility] mg/dL to non-numeric (Ammir results) [facility] Physician) ALKALINE 105 U/L Normal (applies [facility] PHOSPHATASE, ALP to non-numeric (Ammir results) [facility] Physician) ALT (SGPT) 18 U/L Normal (applies [facility] to non-numeric (Ammir results) [facility] Physician) AST 23 U/L Normal (applies [facility] to non-numeric (Ammir results) [facility] Physician) EGFR NON AFR 12 Below low normal [facility] MAL[place]IAN mL/min/1 (Ammir .73m2 [facility] Physician) EGFR AFR 15 Below low normal [facility] MAL[place] mL/min/1 (Ammir .73m2 [facility] Physician) ID Date Data Source [id number] 01/28/2020 04:30:00 PM EDT [facility] Name Value Range Interpretation Description Data Sup porting Code Source(s) Document(s ) SARS [facility] CORONAVIRUS 2 RNA This lab was ordered by [facility] and reported by [facility]. ID Date Data Source [id number] 01/28/2020 01:53:00 PM EDT [facility] Name Value Range Interpretation Code Description Data Ariane rce(s) Supporting Document(s ) SARS-COV-2 [facility] This lab was ordered by [facility] and reported by [facility]. ID Date Data Source [id number] 01/24/2020 12:00:00 AM EDT [facility] (Amm[facility] Physician) Name Value Range Interpretation Code Description Data Ariane rce(s) Supporting Document(s ) SARS-CoV- NEGATIVE Normal (applies to [facility] (Amm ir 2 IGG non-numeric [facility] results) Physician) ID Date Data Source [id number] 01/24/2020 12:00:00 AM EDT [facility] (Ammir [facility] Physician) Name Value Range Interpretation Description Data Sup porting Code Source(s) Document(s ) SARS-COV- Not Detected Normal (applies to [facility] ( Ammir 2 non-numeric [facility] results) Physician) ID Date Data Source [id number] 01/24/2020 12:00:00 AM EDT [facility] (Ammir [facility] Physician) Name Value Range Interpretation Description Data Sup porting Code Source(s) Document(s ) GLUCOSE UA Normal (applies to [facility] non-numeric (Ammir results) [facility] Physician) BILIRUBIN, TOTAL Normal (applies to [facility] EN non-numeric (Ammir results) [facility] Physician) Ketones Normal (applies to [facility] [Presence] in non-numeric (Ammir Blood by Tablet results) [facility] Physician) Specific gravity Below low normal [facility] of Pericardial (Ammir fluid by [facility] Refractometry Physician) Blood [Presence] Normal (applies to [facility] EN in Urine by non-numeric (Ammir Visual results) [facility] Physician) pH of Lower Below low normal [facility] respiratory (Ammir specimen [facility] Physician) Protein Normal (applies to [facility] [Mass/volume] in non-numeric (Ammir Lower respiratory results) [facility] specimen Physician) Urobilinogen Normal (applies to [facility] [Presence] in non-numeric (Ammir Urine by results) [facility] Automated test Physician) strip Nitrite Normal (applies to [facility] [Presence] in non-numeric (Ammir Urine by Test results) [facility] strip Physician) Color of Normal (applies to [facility] Peritoneal non-numeric (Ammir dialysis fluid results) [facility] Physician) Leukocyte Normal (applies to [facility] esterase non-numeric (Ammir [Presence] in results) [facility] Body fluid by Physician) Automated test strip TRANSPARENCY Normal (applies to [facility] non-numeric (Ammir results) [facility] Physician) ID Date Data Source [id number] 01/24/2020 12:00:00 AM EDT [facility] (Amm[facility] Physician) Name Value Range Interpretation Description Data Sup porting Code Source(s) Document(s ) MICROALBUMIN Normal (applies to [facility] ( Ammir URINE non-numeric [facility] results) Physician) CREATININE, Below low normal [facility] (Amm ir URINE [facility] Physician) MICROALBUMIN/CRE Below low normal [facility] (Ammir ATININ RATIO [facility] Physician) ID Date Data Source [id number] 01/24/2020 12:00:00 AM EDT [facility] ([facility] Physician) Name Value Range Interpretation Description Data Sup porting Code Source(s) Document(s ) ORGANISM Normal (applies [facility] to non-numeric (Ammir results) [facility] Physician) Comment Normal (applies [facility] [Interpretation] to non-numeric (Ammir Left eye Narrative results) [facility] Ophthalmometer Physician) ID Date Data Source [id number] 01/24/2020 12:00:00 AM EDT [facility] ([facility] Physician) Name Value Range Interpretation Code Description Data Ariane rce(s) Supporting Document(s ) APTT 33.50 sec Normal (applies to [facility] (Amm ir non-numeric results) [facility] Physician) ID Date Data Source [id number] 01/24/2020 12:00:00 AM EDT [facility] ([facility] Physician) Name Value Range Interpretation Description Data Sup porting Code Source(s) Document(s ) Cholesterol 222 Above high normal [facility] [Moles/volume] mg/dL (Ammir in Pericardial [facility] fluid Physician) LDL CALCULATION 74.0 Normal (applies [facility] mg/dL to non-numeric (Ammir results) [facility] Physician) CHOL/HDL RATIO 5.84 Normal (applies [facility] ratio to non-numeric (Ammir results) [facility] Physician) HDL CHOLESTEROL 38 mg/dL Below low normal [facility] ([facility]) VLDL CALCULATION 110.0 Above high normal [facility] N mg/dl ([facility] Phys[facility]) TRIGLYCERIDES 550 Above high normal [facility] mg/dL ([facility] Phys[facility]) ID Date Data Source [id number] 01/24/2020 12:00:00 AM EDT [facility] ([facility]) Name Value Range Interpretation Description Data Sup porting Code Source(s) Document(s ) PROTHROMBIN 12.5 sec Normal (applies [facility] TIME, PT to non-numeric (Ammir results) [facility]) INR 0.91 Normal (applies [facility] to non-numeric (Ammir results) [facility]) ID Date Data Source [id number] 01/24/2020 12:00:00 AM EDT [facility] ([facility]) Name Value Range Interpretation Description Data Sup porting Code Source(s) Document(s ) WBC 9.4 Normal (applies [facility] 10(3)/uL to non-numeric (Ammir results) [facility]) Hemoglobin 8.9 g/dL Below low normal [facility] [Mass/volume] (Ammir in Mixed venous [facility] blood by Physician) Oximetry RBC 3.0 Below low normal [facility] 10(6)/uL ([facility]) Hematocrit 26.8 % Below low normal [facility] [Pure volume (Ammir fraction] of [facility] Blood by Physician) Automated count MCV 89.9 fL Normal (applies [facility] to non-numeric (Ammir results) [facility]) MCH 30 pg Normal (applies [facility] to non-numeric (Ammir results) [facility]) MCHC 33 g/dL Normal (applies [facility] to non-numeric (Ammir results) [facility]) RDWSD 40.9 fL Normal (applies [facility] to non-numeric (Ammir results) [facility]) RDWCV 12.6 % Normal (applies [facility] to non-numeric (Ammir results) [facility]) Platelet Count 307 Normal (applies [facility] 10(3)/uL to non-numeric (Ammir results) [facility]) MPV 8.7 fL Below low normal [facility] ([facility] Phys[facility]) Neutrophil Abs 6.04 Normal (applies [facility] 10(3)/uL to non-numeric (Ammir results) [facility]) Lymphocyte Abs 1.79 Normal (applies [facility] 10(3)/uL to non-numeric (Ammir results) [facility]) Monocyte Abs 0.86 Normal (applies [facility] 10(3)/uL to non-numeric (Ammir results) [facility]) Eosinophil Abs 0.63 Above high normal [facility] 10(3)/uL ([facility]) Basophil Abs 0.07 Normal (applies [facility] 10(3)/uL to non-numeric (Ammir results) [facility]) Immature 0.07 Normal (applies [facility] Granulocyte Abs 10(3)/uL to non-numeric (Ammir results) [facility]) Neutrophil % 64.30 % Normal (applies [facility] to non-numeric (Ammir results) [facility]) Lymphocyte % 19 % Normal (applies [facility] to non-numeric (Ammir results) [facility]) Monocyte % 9.2 % Normal (applies [facility] to non-numeric (Ammir results) [facility]) Eosinophil % 6.7 % Normal (applies [facility] to non-numeric (Ammir results) [facility]) Basophil % 0.7 % Normal (applies [facility] to non-numeric (Ammir results) [facility]) Immature 0.70 % Normal (applies [facility] Granulocyte % to non-numeric (Ammir results) [facility]) NRBC % 0.0 % Normal (applies [facility] to non-numeric (Ammir results) [facility]) NRBC Abs 0.00 Normal (applies [facility] 10(3)/uL to non-numeric (Ammir results) [facility]) ID Date Data Source [id number] 01/24/2020 12:00:00 AM EDT [facility] ([facility] Phys[facility]) Name Value Range Interpretation Description Data Sup porting Code Source(s) Document(s ) Hemoglobin A1c 6.6 % Above high normal [facility] (Ammir in Blood [facility]) ID Date Data Source [id number] 01/24/2020 12:00:00 AM EDT [facility] ([facility]) Name Value Range Interpretation Description Data Sup porting Code Source(s) Document(s ) GLUCOSE see note Normal (applies [facility] NONFASTING,SERUM to non-numeric (Ammir results) [facility]) SODIUM, SERUM 142 Normal (applies [facility] mEq/L to non-numeric (Ammir results) [facility]) POTASSIUM, SERUM 5.4 Normal (applies [facility] mEq/L to non-numeric (Ammir results) [facility] Phys[facility]) CHLORIDE, SERUM 109 Normal (applies [facility] mEq/L to non-numeric (Ammir results) [facility]) Carbon dioxide 21 mEq/L Below low normal [facility] [VFr/PPres] in ([facility]mmir Gas delivery [facility] system Physician) Anion gap in 17 mEq/L Normal (applies [facility] Body fluid to non-numeric (Ammir results) [facility]) BLOOD UREA 56 mg/dL Above high normal [facility] NITROGEN ([facility]) BUN/CREATININE 11.4 Normal (applies [facility] RATIO to non-numeric (Ammir results) [facility]) CREATININE, 4.90 Above high normal [facility] SERUM mg/dL (Amm[facility] Physician) CALCIUM, SERUM 8.2 Below low normal [facility] mg/dL ([facility] Physician) TOTAL PROTEIN 6.6 g/dL Normal (applies [facility] to non-numeric (Ammir results) [facility]) Globulin 2.4 gldl Normal (applies [facility] [Mass/time] in to non-numeric (Ammir 24 hour Urine results) [facility]) Microalbumin 4.2 g/dL Normal (applies [facility] [Mass/time] in to non-numeric (Ammir Urine collected results) [facility] for unspecified Physician) duration A/G RATIO 1.75 Normal (applies [facility] g/dl to non-numeric (Ammir results) [facility]) BILIRUBIN, TOTAL 0.3 Normal (applies [facility] mg/dL to non-numeric (Ammir results) [facility]) ALKALINE 86 U/L Normal (applies [facility] PHOSPHATASE, ALP to non-numeric (Ammir results) [facility] Phys[facility]) ALT (SGPT) 19 U/L Normal (applies [facility] to non-numeric (Ammir results) [facility] Phys[facility]) AST 26 U/L Normal (applies [facility] to non-numeric (Ammir results) [facility] Physician) EGFR NON AFR 13 Below low normal [facility] [place] mL/min/1 (Ammir .73m2 [facility]) EGFR AFR 16 Below low normal [facility] [place] mL/min/1 (Ammir .73m2 [facility]) ID Date Data Source [id number] 01/24/2020 12:00:00 AM EDT [facility] ([facility] Physician) Name Value Range Interpretation Code Description Data Ariane rce(s) Supporting Document(s ) SARS-CoV- NEGATIVE Normal (applies to [facility] (Amm ir 2 IGG non-numeric [facility] results) Physician) ID Date Data Source [id number] 01/24/2020 12:00:00 AM EDT [facility] ([facility] Physician) Name Value Range Interpretation Description Data Sup porting Code Source(s) Document(s ) SARS-COV- Not Detected Normal (applies to [facility] ( Ammir 2 non-numeric [facility] results) Physician) ID Date Data Source [id number] 01/24/2020 12:00:00 AM EDT [facility] ([facility] Physician) Name Value Range Interpretation Description Data Sup porting Code Source(s) Document(s ) GLUCOSE UA Normal (applies to [facility] non-numeric (Ammir results) [facility]) BILIRUBIN, TOTAL Normal (applies to [facility] EN non-numeric (Ammir results) [facility]) Ketones Normal (applies to [facility] [Presence] in non-numeric (Ammir Blood by Tablet results) [facility]ician) Blood [Presence] Normal (applies to [facility] EN in Urine by non-numeric (Ammir Visual results) [facility]) Specific gravity Below low normal [facility] of Pericardial (Ammir fluid by [facility] Refractometry Physician) pH of Lower Below low normal [facility] respiratory (Ammir specimen [facility]) Protein Normal (applies to [facility] [Mass/volume] in non-numeric (Ammir Lower respiratory results) [facility] specimen Physician) Urobilinogen Normal (applies to [facility] [Presence] in non-numeric (Ammir Urine by results) [facility] Automated test Physician) strip Nitrite Normal (applies to [facility] [Presence] in non-numeric (Ammir Urine by Test results) [facility] strip Physician) Leukocyte Normal (applies to [facility] esterase non-numeric (Ammir [Presence] in results) [facility] Body fluid by Physician) Automated test strip TRANSPARENCY Normal (applies to [facility] non-numeric (Ammir results) [facility] Physician) Color of Normal (applies to [facility] Peritoneal non-numeric (Ammir dialysis fluid results) [facility] Physician) ID Date Data Source [id number] 01/24/2020 12:00:00 AM EDT [facility] ([facility] Physician) Name Value Range Interpretation Description Data Sup porting Code Source(s) Document(s ) MICROALBUMIN Normal (applies to [facility] ( Ammir URINE non-numeric [facility] results) Physician) CREATININE, Below low normal [facility] (Amm ir URINE [facility] Physician) MICROALBUMIN/CRE Below low normal [facility] (Ammir ATININ RATIO [facility] Physician) ID Date Data Source [id number] 01/24/2020 12:00:00 AM EDT [facility] ([facility] Physician) Name Value Range Interpretation Description Data Sup porting Code Source(s) Document(s ) ORGANISM Normal (applies [facility] to non-numeric (Ammir results) [facility]) Comment Normal (applies [facility] [Interpretation] to non-numeric (Ammir Left eye Narrative results) [facility] Physician) ID Date Data Source [id number] 01/24/2020 12:00:00 AM EDT [facility] ([facility] Physician) Name Value Range Interpretation Code Description Data Ariane rce(s) Supporting Document(s ) APTT 33.50 sec Normal (applies to [facility] (Amm ir non-numeric results) [facility] Phys[facility]) ID Date Data Source [id number] 01/24/2020 12:00:00 AM EDT [facility] ([facility] Physician) Name Value Range Interpretation Description Data Sup porting Code Source(s) Document(s ) Cholesterol 222 Above high normal [facility] [Moles/volume] mg/dL (Ammir in Pericardial [facility] fluid Physician) LDL CALCULATION 74.0 Normal (applies [facility] mg/dL to non-numeric (Ammir results) [facility] Physician) CHOL/HDL RATIO 5.84 Normal (applies [facility] ratio to non-numeric (Ammir results) [facility] Physician) HDL CHOLESTEROL 38 mg/dL Below low normal [facility] ([facility]mm[facility] Physician) VLDL CALCULATION 110.0 Above high normal [facility] N mg/dl (Ammir [facility] Physician) TRIGLYCERIDES 550 Above high normal [facility] mg/dL (Ammir [facility] Physician) ID Date Data Source [id number] 01/24/2020 12:00:00 AM EDT [facility] ([facility] Physician) Name Value Range Interpretation Description Data Sup porting Code Source(s) Document(s ) INR 0.91 Normal (applies [facility] to non-numeric (Ammir results) [facility]) PROTHROMBIN 12.5 sec Normal (applies [facility] TIME, PT to non-numeric (Ammir results) [facility] Physician) ID Date Data Source [id number] 01/24/2020 12:00:00 AM EDT [facility] ([facility] Physician) Name Value Range Interpretation Description Data Sup porting Code Source(s) Document(s ) WBC 9.4 Normal (applies [facility] 10(3)/uL to non-numeric (Ammir results) [facility]) RBC 3.0 Below low normal [facility] 10(6)/uL (A[facility] Physician) Hemoglobin 8.9 g/dL Below low normal [facility] [Mass/volume] (Ammir in Mixed venous [facility] blood by Physician) Oximetry Hematocrit 26.8 % Below low normal [facility] [Pure volume (Ammir fraction] of [facility] Blood by Physician) Automated count MCV 89.9 fL Normal (applies [facility] to non-numeric (Ammir results) [facility] Physician) MCH 30 pg Normal (applies [facility] to non-numeric (Ammir results) [facility] Physician) MCHC 33 g/dL Normal (applies [facility] to non-numeric (Ammir results) [facility] Physician) RDWSD 40.9 fL Normal (applies [facility] to non-numeric (Ammir results) [facility] Physician) Platelet Count 307 Normal (applies [facility] 10(3)/uL to non-numeric (Ammir results) [facility] Physician) RDWCV 12.6 % Normal (applies [facility] to non-numeric (Ammir results) [facility] Physician) MPV 8.7 fL Below low normal [facility] ([facility] Physician) Neutrophil Abs 6.04 Normal (applies [facility] 10(3)/uL to non-numeric (Ammir results) [facility]) Lymphocyte Abs 1.79 Normal (applies [facility] 10(3)/uL to non-numeric (Ammir results) [facility]) Monocyte Abs 0.86 Normal (applies [facility] 10(3)/uL to non-numeric (Ammir results) [facility] Physician) Eosinophil Abs 0.63 Above high normal [facility] 10(3)/uL (Ammir [facility] Physician) Basophil Abs 0.07 Normal (applies [facility] 10(3)/uL to non-numeric (Ammir results) [facility]ician) Immature 0.07 Normal (applies [facility] Granulocyte Abs 10(3)/uL to non-numeric (Ammir results) [facility]ician) Neutrophil % 64.30 % Normal (applies [facility] to non-numeric (Ammir results) [facility] Physician) Lymphocyte % 19 % Normal (applies [facility] to non-numeric (Ammir results) [facility] Physician) Monocyte % 9.2 % Normal (applies [facility] to non-numeric (Ammir results) [facility]) Basophil % 0.7 % Normal (applies [facility] to non-numeric (Ammir results) [facility] Physician) Eosinophil % 6.7 % Normal (applies [facility] to non-numeric (Ammir results) [facility] Physician) Immature 0.70 % Normal (applies [facility] Granulocyte % to non-numeric (Ammir results) [facility] Physician) NRBC Abs 0.00 Normal (applies [facility] 10(3)/uL to non-numeric (Ammir results) [facility] Physician) NRBC % 0.0 % Normal (applies [facility] to non-numeric (Ammir results) [facility] Physician) ID Date Data Source [id number] 01/24/2020 12:00:00 AM EDT [facility] (Amm[facility] Physician) Name Value Range Interpretation Description Data Sup porting Code Source(s) Document(s ) Hemoglobin A1c 6.6 % Above high normal [facility] (Ammir in Blood [facility] Physician) ID Date Data Source [id number] 01/24/2020 12:00:00 AM EDT [facility] ([facility] Physician) Name Value Range Interpretation Description Data Sup porting Code Source(s) Document(s ) GLUCOSE see note Normal (applies [facility] NONFASTING,SERUM to non-numeric (Ammir results) [facility]ician) SODIUM, SERUM 142 Normal (applies [facility] mEq/L to non-numeric (Ammir results) [facility] Physician) CHLORIDE, SERUM 109 Normal (applies [facility] mEq/L to non-numeric (Ammir results) [facility] Physician) POTASSIUM, SERUM 5.4 Normal (applies [facility] mEq/L to non-numeric (Ammir results) [facility] Physician) Carbon dioxide 21 mEq/L Below low normal [facility] [VFr/PPres] in (Ammir Gas delivery [facility] system Physician) Anion gap in 17 mEq/L Normal (applies [facility] Body fluid to non-numeric (Ammir results) [facility] Physician) CREATININE, 4.90 Above high normal [facility] SERUM mg/dL (Ammir [facility] Physician) BLOOD UREA 56 mg/dL Above high normal [facility] NITROGEN (Ammir [facility] Physician) BUN/CREATININE 11.4 Normal (applies [facility] RATIO to non-numeric (Ammir results) [facility] Physician) CALCIUM, SERUM 8.2 Below low normal [facility] mg/dL (Ammir [facility] Physician) TOTAL PROTEIN 6.6 g/dL Normal (applies [facility] to non-numeric (Ammir results) [facility] Physician) Microalbumin 4.2 g/dL Normal (applies [facility] [Mass/time] in to non-numeric (Ammir Urine collected results) [facility] for unspecified Physician) duration Globulin 2.4 gldl Normal (applies [facility] [Mass/time] in to non-numeric (Ammir 24 hour Urine results) [facility] Physician) A/G RATIO 1.75 Normal (applies [facility] g/dl to non-numeric (Ammir results) [facility] Physician) BILIRUBIN, TOTAL 0.3 Normal (applies [facility] mg/dL to non-numeric (Ammir results) [facility] Physician) ALKALINE 86 U/L Normal (applies [facility] PHOSPHATASE, ALP to non-numeric (Ammir results) [facility] Physician) ALT (SGPT) 19 U/L Normal (applies [facility] to non-numeric (Ammir results) [facility] Physician) AST 26 U/L Normal (applies [facility] to non-numeric (Ammir results) [facility] Physician) EGFR NON AFR 13 Below low normal [facility] [place] mL/min/1 (Ammir .73m2 [facility] Physician) EGFR AFR 16 Below low normal [facility] [place] mL/min/1 (Ammir .73m2 [facility] Physician) ID Date Data Source [id number] 01/24/2020 12:00:00 AM EDT [facility] (Ammir [facility] Physician) Name Value Range Interpretation Code Description Data Ariane rce(s) Supporting Document(s ) SARS-CoV- NEGATIVE Normal (applies to [facility] (Amm ir 2 IGG non-numeric [facility] results) Physician) ID Date Data Source [id number] 01/24/2020 12:00:00 AM EDT [facility] (Ammir [facility] Physician) Name Value Range Interpretation Description Data Sup porting Code Source(s) Document(s ) SARS-COV- Not Detected Normal (applies to [facility] ( Ammir 2 non-numeric [facility] results) Physician) ID Date Data Source [id number] 01/24/2020 12:00:00 AM EDT [facility] (Ammir [facility] Physician) Name Value Range Interpretation Description Data Sup porting Code Source(s) Document(s ) GLUCOSE UA Normal (applies to [facility] non-numeric (Ammir results) [facility] Physician) BILIRUBIN, TOTAL Normal (applies to [facility] EN non-numeric (Ammir results) [facility] Physician) Ketones Normal (applies to [facility] [Presence] in non-numeric (Ammir Blood by Tablet results) [facility] Physician) Specific gravity Below low normal [facility] of Pericardial (Ammir fluid by [facility] Refractometry Physician) Blood [Presence] Normal (applies to [facility] EN in Urine by non-numeric (Ammir Visual results) [facility] Physician) pH of Lower Below low normal [facility] respiratory (Ammir specimen [facility] Physician) Protein Normal (applies to [facility] [Mass/volume] in non-numeric (Ammir Lower respiratory results) [facility] specimen Physician) Urobilinogen Normal (applies to [facility] [Presence] in non-numeric (Ammir Urine by results) [facility] Automated test Physician) strip Nitrite Normal (applies to [facility] [Presence] in non-numeric (Ammir Urine by Test results) [facility] strip Physician) Leukocyte Normal (applies to [facility] esterase non-numeric (Ammir [Presence] in results) [facility] Body fluid by Physician) Automated test strip Color of Normal (applies to [facility] Peritoneal non-numeric (Ammir dialysis fluid results) [facility] Physician) TRANSPARENCY Normal (applies to [facility] non-numeric (Ammir results) [facility] Physician) ID Date Data Source [id number] 01/24/2020 12:00:00 AM EDT [facility] (Ammir [facility] Physician) Name Value Range Interpretation Description Data Sup porting Code Source(s) Document(s ) MICROALBUMIN Normal (applies to [facility] ( Ammir URINE non-numeric [facility] results) Physician) CREATININE, Below low normal [facility] (Amm ir URINE [facility] Physician) MICROALBUMIN/CRE Below low normal [facility] (Ammir ATININ RATIO [facility] Physician) ID Date Data Source [id number] 01/24/2020 12:00:00 AM EDT [facility] (Ammir [facility] Physician) Name Value Range Interpretation Description Data Sup porting Code Source(s) Document(s ) ORGANISM Normal (applies [facility] to non-numeric (Ammir results) [facility] Physician) Comment Normal (applies [facility] [Interpretation] to non-numeric (Ammir Left eye Narrative results) [facility]hthalm[facility] Physician) ID Date Data Source [id number] 01/24/2020 12:00:00 AM EDT [facility] (Ammir [facility] Physician) Name Value Range Interpretation Code Description Data Ariane rce(s) Supporting Document(s ) APTT 33.50 sec Normal (applies to [facility] (Amm ir non-numeric results) [facility] Physician) ID Date Data Source [id number] 01/24/2020 12:00:00 AM EDT [facility] (Ammir [facility] Physician) Name Value Range Interpretation Description Data Sup porting Code Source(s) Document(s ) Cholesterol 222 Above high normal [facility] [Moles/volume] mg/dL (Ammir in Pericardial [facility] fluid Physician) LDL CALCULATION 74.0 Normal (applies [facility] mg/dL to non-numeric (Ammir results) [facility] Physician) CHOL/HDL RATIO 5.84 Normal (applies [facility] ratio to non-numeric (Ammir results) [facility] Physician) HDL CHOLESTEROL 38 mg/dL Below low normal [facility] (Ammir [facility] Physician) VLDL CALCULATION 110.0 Above high normal [facility] N mg/dl (Ammir [facility] Physician) TRIGLYCERIDES 550 Above high normal [facility] mg/dL (Ammir [facility] Physician) ID Date Data Source [id number] 01/24/2020 12:00:00 AM EDT [facility] (Ammir [facility] Physician) Name Value Range Interpretation Description Data Sup porting Code Source(s) Document(s ) INR 0.91 Normal (applies [facility] to non-numeric (Ammir results) [facility] Physician) PROTHROMBIN 12.5 sec Normal (applies [facility] TIME, PT to non-numeric (Ammir results) [facility] Physician) ID Date Data Source [id number] 01/24/2020 12:00:00 AM EDT [facility] (Ammir [facility] Physician) Name Value Range Interpretation Description Data Sup porting Code Source(s) Document(s ) WBC 9.4 Normal (applies [facility] 10(3)/uL to non-numeric (Ammir results) [facility] Physician) Hemoglobin 8.9 g/dL Below low normal [facility] [Mass/volume] (Ammir in Mixed venous [facility] blood by Physician) Oximetry RBC 3.0 Below low normal [facility] 10(6)/uL (Ammir [facility] Physician) Hematocrit 26.8 % Below low normal [facility] [Pure volume (Ammir fraction] of [facility] Blood by Physician) Automated count MCV 89.9 fL Normal (applies [facility] to non-numeric (Ammir results) [facility] Physician) MCH 30 pg Normal (applies [facility] to non-numeric (Ammir results) [facility] Physician) MCHC 33 g/dL Normal (applies [facility] to non-numeric (Ammir results) [facility] Physician) RDWSD 40.9 fL Normal (applies [facility] to non-numeric (Ammir results) [facility] Physician) RDWCV 12.6 % Normal (applies [facility] to non-numeric (Ammir results) [facility] Physician) Platelet Count 307 Normal (applies [facility] 10(3)/uL to non-numeric (Ammir results) [facility] Physician) MPV 8.7 fL Below low normal [facility] (Ammir [facility] Physician) Neutrophil Abs 6.04 Normal (applies [facility] 10(3)/uL to non-numeric (Ammir results) [facility] Physician) Monocyte Abs 0.86 Normal (applies [facility] 10(3)/uL to non-numeric (Ammir results) [facility] Physician) Lymphocyte Abs 1.79 Normal (applies [facility] 10(3)/uL to non-numeric (Ammir results) [facility] Physician) Eosinophil Abs 0.63 Above high normal [facility] 10(3)/uL (Ammir [facility] Physician) Basophil Abs 0.07 Normal (applies [facility] 10(3)/uL to non-numeric (Ammir results) [facility] Physician) Immature 0.07 Normal (applies [facility] Granulocyte Abs 10(3)/uL to non-numeric (Ammir results) [facility] Physician) Neutrophil % 64.30 % Normal (applies [facility] to non-numeric (Ammir results) [facility] Physician) Lymphocyte % 19 % Normal (applies [facility] to non-numeric (Ammir results) [facility] Physician) Monocyte % 9.2 % Normal (applies [facility] to non-numeric (Ammir results) [facility] Physician) Eosinophil % 6.7 % Normal (applies [facility] to non-numeric (Ammir results) [facility] Physician) Basophil % 0.7 % Normal (applies [facility] to non-numeric (Ammir results) [facility] Physician) Immature 0.70 % Normal (applies [facility] Granulocyte % to non-numeric (Ammir results) [facility] Physician) NRBC % 0.0 % Normal (applies [facility] to non-numeric (Ammir results) [facility] Physician) NRBC Abs 0.00 Normal (applies [facility] 10(3)/uL to non-numeric (Ammir results) [facility] Physician) ID Date Data Source [id number] 01/24/2020 12:00:00 AM EDT [facility] (Ammir [facility] Physician) Name Value Range Interpretation Description Data Sup porting Code Source(s) Document(s ) Hemoglobin A1c 6.6 % Above high normal [facility] (Ammir in Blood [facility] Physician) ID Date Data Source [id number] 01/24/2020 12:00:00 AM EDT [facility] (Ammir [facility] Physician) Name Value Range Interpretation Description Data Sup porting Code Source(s) Document(s ) GLUCOSE see note Normal (applies [facility] NONFASTING,SERUM to non-numeric (Ammir results) [facility] Physician) SODIUM, SERUM 142 Normal (applies [facility] mEq/L to non-numeric (Ammir results) [facility] Physician) POTASSIUM, SERUM 5.4 Normal (applies [facility] mEq/L to non-numeric (Ammir results) [facility] Physician) CHLORIDE, SERUM 109 Normal (applies [facility] mEq/L to non-numeric (Ammir results) [facility] Physician) Carbon dioxide 21 mEq/L Below low normal [facility] [VFr/PPres] in (Ammir Gas delivery [facility] system Physician) Anion gap in 17 mEq/L Normal (applies [facility] Body fluid to non-numeric (Ammir results) [facility] Physician) BLOOD UREA 56 mg/dL Above high normal [facility] NITROGEN (Ammir [facility] Physician) CREATININE, 4.90 Above high normal [facility] SERUM mg/dL (Ammir [facility] Physician) BUN/CREATININE 11.4 Normal (applies [facility] RATIO to non-numeric (Ammir results) [facility] Physician) CALCIUM, SERUM 8.2 Below low normal [facility] mg/dL (Ammir [facility] Physician) TOTAL PROTEIN 6.6 g/dL Normal (applies [facility] to non-numeric (Ammir results) [facility] Physician) Microalbumin 4.2 g/dL Normal (applies [facility] [Mass/time] in to non-numeric (Ammir Urine collected results) [facility] for unspecified Physician) duration Globulin 2.4 gldl Normal (applies [facility] [Mass/time] in to non-numeric (Ammir 24 hour Urine results) [facility] Physician) A/G RATIO 1.75 Normal (applies [facility] g/dl to non-numeric (Ammir results) [facility] Physician) BILIRUBIN, TOTAL 0.3 Normal (applies [facility] mg/dL to non-numeric (Ammir results) [facility] Physician) ALKALINE 86 U/L Normal (applies [facility] PHOSPHATASE, ALP to non-numeric (Ammir results) [facility] Physician) ALT (SGPT) 19 U/L Normal (applies [facility] to non-numeric (Ammir results) [facility] Physician) AST 26 U/L Normal (applies [facility] to non-numeric (Ammir results) [facility] Physician) EGFR NON AFR 13 Below low normal [facility] [place] mL/min/1 (Ammir .73m2 [facility] Physician) EGFR AFR 16 Below low normal [facility] [place] mL/min/1 (Ammir .73m2 [facility] Physician) ID Date Data Source [id number] 01/23/2020 02:04:00 PM EDT [facility] Name Value Range Interpretation Code Description Data Ariane rce(s) Supporting Document(s ) SARS-COV-2 [facility] This lab was ordered by [employer] and reported by [employer]. ID Date Data Source [id number] 01/07/2020 12:00:00 AM EDT [facility] (Ammir [facility] Physician) Name Value Range Interpretation Description Data Sup porting Code Source(s) Document(s ) Structure of 8.0 Normal (applies to [facility] plantar Thousand/ non-numeric (Ammir digital artery uL results) [facility] (body Physician) structure) RED BLOOD CELL 3.14 Below low normal [facility] COUNT Million/u (Ammir L [facility] Physician) Hemoglobin 9.7 g/dL Below low normal [facility] [Mass/volume] (Ammir in Mixed [place] venous blood Physician) by Oximetry Hematocrit 28.0 % Below low normal [facility] [Pure volume (Ammir fraction] of [place] Blood by Physician) Automated count MCV 89.2 fL Normal (applies to [facility] non-numeric (Ammir results) [facility] Physician) MCH 30.9 pg Normal (applies to [facility] non-numeric (Ammir results) [facility] Physician) MCHC 34.6 g/dL Normal (applies to [facility] non-numeric (Ammir results) [facility] Physician) RDW 12.6 % Normal (applies to [facility] non-numeric (Ammir results) [facility] Physician) PLATELET COUNT 327 Normal (applies to [facility] Thousand/ non-numeric (Ammir uL results) [facility] Physician) MPV 8.6 fL Normal (applies to [facility] non-numeric (Ammir results) [facility] Physician) ID Date Data Source [id number] 01/07/2020 12:00:00 AM EDT [facility] (Ammir [facility] Physician) Name Value Range Interpretation Description Data Sup porting Code Source(s) Document(s ) Glucose 116 Above high normal [facility] [Mass/volume] in mg/dL (Ammir Urine collected [place] for unspecified Physician) duration Creatinine 4.73 Above high normal [facility] [Interpretation] mg/dL (Ammir in Urine [facility] Physician) UREA NITROGEN 42 mg/dL Above high normal [facility] (BUN) (Ammir [facility] Physician) eGFR NON-AFR. 12 Below low normal [facility] MALAWIAN mL/min/1 (Ammir .73m2 [facility] Physician) eGFR 14 Below low normal [facility] MALAWIAN mL/min/1 (Ammir .73m2 [facility] Physician) BUN/CREATININE 9 (calc) Normal (applies [facility] RATIO to non-numeric (Ammir results) [facility] Physician) Sodium 141 Normal (applies [facility] [Moles/volume] mmol/L to non-numeric (Ammir in Serum, Plasma results) [facility] or Blood Physician) Potassium 5.2 Normal (applies [facility] [Mass/volume] in mmol/L to non-numeric (Ammir Blood results) [facility] Physician) Chloride 107 Normal (applies [facility] [Moles/volume] mmol/L to non-numeric (Ammir in Serum, Plasma results) [facility] or Blood Physician) Carbon dioxide 26 Normal (applies [facility] [VFr/PPres] in mmol/L to non-numeric (Ammir Gas delivery results) [facility] system Physician) Calcium 8.7 Normal (applies [facility] [Moles/volume] mg/dL to non-numeric (Ammir in Urine results) [facility] collected for Physician) unspecified duration PROTEIN, TOTAL 6.8 g/dL Normal (applies [facility] to non-numeric (Ammir results) [facility] Physician) Microalbumin 4.0 g/dL Normal (applies [facility] [Mass/time] in to non-numeric (Ammir Urine collected results) [place] for unspecified Physician) duration Globulin 2.8 g/dL Normal (applies [facility] [Mass/time] in (calc) to non-numeric (Ammir 24 hour Urine results) [facility] Physician) ALBUMIN/GLOBULIN 1.4 Normal (applies [facility] RATIO (calc) to non-numeric (Ammir results) [facility] Physician) Alkaline 81 U/L Normal (applies [facility] phosphatase to non-numeric (Ammir [Enzymatic results) [place] activity/volume] Physician) in Serum, Plasma or Blood BILIRUBIN, TOTAL 0.3 Normal (applies [facility] mg/dL to non-numeric (Ammir results) [facility] Physician) AST 17 U/L Normal (applies [facility] to non-numeric (Ammir results) [facility] Physician) ALT 13 U/L Normal (applies [facility] to non-numeric (Ammir results) [facility] Physician) ID Date Data Source [id number] 01/07/2020 12:00:00 AM EDT [facility] (Ammir [facility] Physician) Name Value Range Interpretation Description Data Sup porting Code Source(s) Document(s ) CHOLESTEROL, 259 Above high normal [facility] TOTAL mg/dL (Ammir [facility] Physician) HDL CHOLESTEROL 41 mg/dL Normal (applies [facility] to non-numeric (Ammir results) [facility] Physician) TRIGLYCERIDES 762 Above high normal [facility] mg/dL (Ammir [facility] Physician) LDL-CHOLESTEROL Normal (applies [facility] to non-numeric (Ammir results) [facility] Physician) NON HDL 218 Above high normal [facility] CHOLESTEROL mg/dL (Ammir (calc) [facility] Physician) CHOL/HDLC RATIO 6.3 Above high normal [facility] (calc) (Ammir [facility] Physician) ID Date Data Source [id number] 01/07/2020 12:00:00 AM EDT [facility] (Ammir [facility] Physician) Name Value Range Interpretation Description Data Sup porting Code Source(s) Document(s ) Structure of 8.0 Normal (applies to [facility] plantar Thousand/ non-numeric (Ammir digital artery uL results) [facility] (body Physician) structure) RED BLOOD CELL 3.14 Below low normal [facility] COUNT Million/u (Ammir L [facility] Physician) Hemoglobin 9.7 g/dL Below low normal [facility] [Mass/volume] (Ammir in Mixed [place] venous blood Physician) by Oximetry Hematocrit 28.0 % Below low normal [facility] [Pure volume (Ammir fraction] of [place] Blood by Physician) Automated count MCV 89.2 fL Normal (applies to [facility] non-numeric (Ammir results) [facility] Physician) MCH 30.9 pg Normal (applies to [facility] non-numeric (Ammir results) [facility] Physician) MCHC 34.6 g/dL Normal (applies to [facility] non-numeric (Ammir results) [facility] Physician) RDW 12.6 % Normal (applies to [facility] non-numeric (Ammir results) [facility] Physician) PLATELET COUNT 327 Normal (applies to [facility] Thousand/ non-numeric (Ammir uL results) [facility] Physician) MPV 8.6 fL Normal (applies to [facility] non-numeric (Ammir results) [facility] Physician) ID Date Data Source [id number] 01/07/2020 12:00:00 AM EDT [facility] (Ammir [facility] Physician) Name Value Range Interpretation Description Data Sup porting Code Source(s) Document(s ) Glucose 116 Above high normal [facility] [Mass/volume] in mg/dL (Ammir Urine collected [place] for unspecified Physician) duration UREA NITROGEN 42 mg/dL Above high normal [facility] (BUN) (Ammir [facility] Physician) Creatinine 4.73 Above high normal [facility] [Interpretation] mg/dL (Ammir in Urine [facility] Physician) eGFR NON-AFR. 12 Below low normal [facility] MALAWIAN mL/min/1 (Ammir .73m2 [facility] Physician) eGFR 14 Below low normal [facility] MAL[place]IAN mL/min/1 (Ammir .73m2 [facility] Physician) Sodium 141 Normal (applies [facility] [Moles/volume] mmol/L to non-numeric (Ammir in Serum, Plasma results) [facility] or Blood Physician) BUN/CREATININE 9 (calc) Normal (applies [facility] RATIO to non-numeric (Ammir results) [facility] Physician) Potassium 5.2 Normal (applies [facility] [Mass/volume] in mmol/L to non-numeric (Ammir Blood results) [facility] Physician) Chloride 107 Normal (applies [facility] [Moles/volume] mmol/L to non-numeric (Ammir in Serum, Plasma results) [facility] or Blood Physician) Carbon dioxide 26 Normal (applies [facility] [VFr/PPres] in mmol/L to non-numeric (Ammir Gas delivery results) [facility] system Physician) Calcium 8.7 Normal (applies [facility] [Moles/volume] mg/dL to non-numeric (Ammir in Urine results) [place] collected for Physician) unspecified duration PROTEIN, TOTAL 6.8 g/dL Normal (applies [facility] to non-numeric (Ammir results) [facility] Physician) Globulin 2.8 g/dL Normal (applies [facility] [Mass/time] in (calc) to non-numeric (Ammir 24 hour Urine results) [facility] Physician) Microalbumin 4.0 g/dL Normal (applies [facility] [Mass/time] in to non-numeric (Ammir Urine collected results) [place] for unspecified Physician) duration ALBUMIN/GLOBULIN 1.4 Normal (applies [facility] RATIO (calc) to non-numeric (Ammir results) [facility] Physician) BILIRUBIN, TOTAL 0.3 Normal (applies [facility] mg/dL to non-numeric (Ammir results) [facility] Physician) AST 17 U/L Normal (applies [facility] to non-numeric (Ammir results) [facility] Physician) Alkaline 81 U/L Normal (applies [facility] phosphatase to non-numeric (Ammir [Enzymatic results) [place] activity/volume] Physician) in Serum, Plasma or Blood ALT 13 U/L Normal (applies [facility] to non-numeric (Ammir results) [facility] Physician) ID Date Data Source [id number] 01/07/2020 12:00:00 AM EDT [facility] (Ammir [facility] Physician) Name Value Range Interpretation Description Data Sup porting Code Source(s) Document(s ) CHOLESTEROL, 259 Above high normal [facility] TOTAL mg/dL (Ammir [facility] Physician) HDL CHOLESTEROL 41 mg/dL Normal (applies [facility] to non-numeric (Ammir results) [facility] Physician) TRIGLYCERIDES 762 Above high normal [facility] mg/dL (Ammir [facility] Physician) CHOL/HDLC RATIO 6.3 Above high normal [facility] (calc) (Ammir [facility] Physician) LDL-CHOLESTEROL Normal (applies [facility] to non-numeric (Ammir results) [facility] Physician) NON HDL 218 Above high normal [facility] CHOLESTEROL mg/dL (Ammir (calc) [facility] Physician) ID Date Data Source [id number] 01/07/2020 12:00:00 AM EDT [facility] (Ammir [facility] Physician) Name Value Range Interpretation Description Data Sup porting Code Source(s) Document(s ) Structure of 8.0 Normal (applies to [facility] plantar Thousand/ non-numeric (Ammir digital artery uL results) [facility] (body Physician) structure) Hemoglobin 9.7 g/dL Below low normal [facility] [Mass/volume] (Ammir in Mixed [place] venous blood Physician) by Oximetry RED BLOOD CELL 3.14 Below low normal [facility] COUNT Million/u (Ammir L [facility] Physician) Hematocrit 28.0 % Below low normal [facility] [Pure volume (Ammir fraction] of [place] Blood by Physician) Automated count MCV 89.2 fL Normal (applies to [facility] non-numeric (Ammir results) [facility] Physician) MCHC 34.6 g/dL Normal (applies to [facility] non-numeric (Ammir results) [facility] Physician) MCH 30.9 pg Normal (applies to [facility] non-numeric (Ammir results) [facility] Physician) RDW 12.6 % Normal (applies to [facility] non-numeric (Ammir results) [facility] Physician) PLATELET COUNT 327 Normal (applies to [facility] Thousand/ non-numeric (Ammir uL results) [facility] Physician) MPV 8.6 fL Normal (applies to [facility] non-numeric (Ammir results) [facility] Physician) ID Date Data Source [id number] 01/07/2020 12:00:00 AM EDT [facility] (Ammir [facility] Physician) Name Value Range Interpretation Description Data Sup porting Code Source(s) Document(s ) Glucose 116 Above high normal [facility] [Mass/volume] in mg/dL (Ammir Urine collected [place] for unspecified Physician) duration UREA NITROGEN 42 mg/dL Above high normal [facility] (BUN) (Ammir [facility] Physician) Creatinine 4.73 Above high normal [facility] [Interpretation] mg/dL (Ammir in Urine [facility] Physician) eGFR NON-AFR. 12 Below low normal [facility] MAL[place]IAN mL/min/1 (Ammir .73m2 [facility] Physician) BUN/CREATININE 9 (calc) Normal (applies [facility] RATIO to non-numeric (Ammir results) [facility] Physician) eGFR 14 Below low normal [facility] MAL[place] mL/min/1 (Ammir .73m2 [facility] Physician) Sodium 141 Normal (applies [facility] [Moles/volume] mmol/L to non-numeric (Ammir in Serum, Plasma results) [facility] or Blood Physician) Chloride 107 Normal (applies [facility] [Moles/volume] mmol/L to non-numeric (Ammir in Serum, Plasma results) [facility] or Blood Physician) Potassium 5.2 Normal (applies [facility] [Mass/volume] in mmol/L to non-numeric (Ammir Blood results) [facility] Physician) Carbon dioxide 26 Normal (applies [facility] [VFr/PPres] in mmol/L to non-numeric (Ammir Gas delivery results) [facility] system Physician) Calcium 8.7 Normal (applies [facility] [Moles/volume] mg/dL to non-numeric (Ammir in Urine results) [place] collected for Physician) unspecified duration PROTEIN, TOTAL 6.8 g/dL Normal (applies [facility] to non-numeric (Ammir results) [facility] Physician) Microalbumin 4.0 g/dL Normal (applies [facility] [Mass/time] in to non-numeric (Ammir Urine collected results) [place] for unspecified Physician) duration Globulin 2.8 g/dL Normal (applies [facility] [Mass/time] in (calc) to non-numeric (Ammir 24 hour Urine results) [facility] Physician) ALBUMIN/GLOBULIN 1.4 Normal (applies [facility] RATIO (calc) to non-numeric (Ammir results) [facility] Physician) BILIRUBIN, TOTAL 0.3 Normal (applies [facility] mg/dL to non-numeric (Ammir results) [facility] Physician) Alkaline 81 U/L Normal (applies [facility] phosphatase to non-numeric (Ammir [Enzymatic results) [place] activity/volume] Physician) in Serum, Plasma or Blood AST 17 U/L Normal (applies [facility] to non-numeric (Ammir results) [facility] Physician) ALT 13 U/L Normal (applies [facility] to non-numeric (Ammir results) [facility] Physician) ID Date Data Source [id number] 01/07/2020 12:00:00 AM EDT [facility] (Ammir [facility] Physician) Name Value Range Interpretation Description Data Sup porting Code Source(s) Document(s ) CHOLESTEROL, 259 Above high normal [facility] TOTAL mg/dL (Ammir [facility] Physician) HDL CHOLESTEROL 41 mg/dL Normal (applies [facility] to non-numeric (Ammir results) [facility] Physician) TRIGLYCERIDES 762 Above high normal [facility] mg/dL (Ammir [facility] Physician) LDL-CHOLESTEROL Normal (applies [facility] to non-numeric (Ammir results) [facility] Physician) CHOL/HDLC RATIO 6.3 Above high normal [facility] (calc) (Ammir [facility] Physician) NON HDL 218 Above high normal [facility] CHOLESTEROL mg/dL (Ammir (calc) [facility] Physician) Procedure Social History Code Duration Value Status Description Data Source(s ) Smoking 06/23/2020 No history of completed No history of drug [facility] (Ammir 12:00:00 AM EDT drug use.no use.no history of R gaurav Physician) history of alcohol abuse, alcohol abuse, Patient tobacco Patient tobacco use: patient is a use: patient is former smoker a former smoker Smoking 06/23/2020 Unknown if ever completed Unknown if ever [facility] EN (Ammir 12:00:00 AM EDT smoked smoked [facility] Ph ysician) Smoking 06/02/2020 No history of completed No history of drug [facility] (Ammir 12:00:00 AM EDT drug use.no use.no history of R gaurav Physician) history of alcohol abuse, alcohol abuse, Patient tobacco Patient tobacco use: patient is a use: patient is former smoker a former smoker Smoking 06/02/2020 Unknown if ever completed Unknown if ever [facility] EN (Ammir 12:00:00 AM EDT smoked smoked [facility] Ph ysician) Smoking 05/13/2020 No history of completed No history of drug [facility] (Ammir 12:00:00 AM EDT drug use.no use.no history of R gaurav Physician) history of alcohol abuse, alcohol abuse, Patient tobacco Patient tobacco use: patient is a use: patient is former smoker a former smoker Smoking 05/13/2020 Unknown if ever completed Unknown if ever [facility] EN (Ammir 12:00:00 AM EDT smoked smoked [facility] Ph ysician) Vital Signs ID Date Data Source UNK Name Value Range Interpretation Code Description Data Source(s) Heart rate 95 /min 95 /min [facility] (Ammir [facility] Physician) Body temperature 98.4 F 98.4 F [facility] ( Ammir [facility] Physician) Inhaled oxygen 97 % 97 % [facility] (Am esha concentration [facility] Physician) Body mass index 26.6 kg/m2 26.6 kg/m2 [facility] (A mmir (BMI) [Ratio] [facility] Physician) Diastolic blood 90 mm[Hg] 90 mm[Hg] [facility] (A mmir pressure [facility] Physician) Systolic blood 160 mm[Hg] 160 mm[Hg] [facility] (Am esha pressure [facility] Physician) Body weight 155 lb 155 lb [facility] (Ammir [facility] Physician) Body height 64 in 64 in [facility] (Ammir [facility] Physician) Heart rate 95 /min 95 /min [facility] (Ammir [facility] Physician) Inhaled oxygen 98 % 98 % [facility] (Am esha concentration [facility] Physician) Body mass index 26.6 kg/m2 26.6 kg/m2 [facility] (A mmir (BMI) [Ratio] [facility] Physician) Diastolic blood 84 mm[Hg] 84 mm[Hg] [facility] (A mmir pressure [facility] Physician) Systolic blood 140 mm[Hg] 140 mm[Hg] [facility] (Am esha pressure [facility] Physician) Body weight 155 lb 155 lb [facility] (Ammir [facility] Physician) Body height 64 in 64 in [facility] (Ammir [facility] Physician) Heart rate 95 /min 95 /min [facility] (Ammir [facility] Physician) Inhaled oxygen 98 % 98 % [facility] (Am esha concentration [facility] Physician) Body mass index 26.6 kg/m2 26.6 kg/m2 [facility] (A mmir (BMI) [Ratio] [facility] Physician) Diastolic blood 84 mm[Hg] 84 mm[Hg] [facility] (A mmir pressure [facility] Physician) Systolic blood 140 mm[Hg] 140 mm[Hg] [facility] (Am esha pressure [facility] Physician) Body weight 155 lb 155 lb [facility] (Ammir [facility] Physician) Body height 64 in 64 in [facility] (Ammir [facility] Physician) Heart rate 84 /min 84 /min [facility] (Ammir [facility] Physician) Inhaled oxygen 97 % 97 % [facility] (Am esha concentration [facility] Physician) Diastolic blood 70 mm[Hg] 70 mm[Hg] [facility] (A mmir pressure [facility] Physician) Systolic blood 130 mm[Hg] 130 mm[Hg] [facility] (Am esha pressure [facility] Physician) Body weight 152 lb 152 lb [facility] (Ammir [facility] Physician) Heart rate 84 /min 84 /min [facility] (Ammir [facility] Physician) Inhaled oxygen 97 % 97 % [facility] (Am esha concentration [facility] Physician) Diastolic blood 70 mm[Hg] 70 mm[Hg] [facility] (A mmir pressure [facility] Physician) Systolic blood 130 mm[Hg] 130 mm[Hg] [facility] (Am esha pressure [facility] Physician) Body weight 152 lb 152 lb [facility] (Ammir [facility] Physician) Heart rate 84 /min 84 /min [facility] (Ammir [facility] Physician) Inhaled oxygen 97 % 97 % [facility] (Am esha concentration [facility] Physician) Diastolic blood 70 mm[Hg] 70 mm[Hg] [facility] (A mmir pressure [facility] Physician) Systolic blood 130 mm[Hg] 130 mm[Hg] [facility] (Am esha pressure [facility] Physician) Body weight 152 lb 152 lb [facility] (Ammir [facility] Physician) Heart rate 86 /min 86 /min [facility] (Ammir [facility] Physician) Body temperature 98.9 F 98.9 F [facility] ( Ammir [facility] Physician) Inhaled oxygen 97 % 97 % [facility] (Am esha concentration [facility] Physician) Body mass index 23.3 kg/m2 23.3 kg/m2 [facility] (A mmir (BMI) [Ratio] [facility] Physician) Diastolic blood 80 mm[Hg] 80 mm[Hg] [facility] (A mmir pressure [facility] Physician) Systolic blood 140 mm[Hg] 140 mm[Hg] [facility] (Am esha pressure [facility] Physician) Body weight 149 lb 149 lb [facility] (Ammir [facility] Physician) Body height 67 in in [facility] (Ammir [facility] Physician) Heart rate 86 /min 86 /min [facility] (Ammir [facility] Physician) Body temperature 98.9 F 98.9 F [facility] ( Ammir [facility] Physician) Inhaled oxygen 97 % 97 % [facility] (Am esha concentration [facility] Physician) Body mass index 23.3 kg/m2 23.3 kg/m2 [facility] (A mmir (BMI) [Ratio] [facility] Physician) Diastolic blood 80 mm[Hg] 80 mm[Hg] [facility] (A mmir pressure [facility] Physician) Systolic blood 140 mm[Hg] 140 mm[Hg] [facility] (Am esha pressure [facility] Physician) Body weight 149 lb 149 lb [facility] (Ammir [facility] Physician) Body height 67 in in [facility] (Ammir [facility] Physician) Heart rate 86 /min 86 /min [facility] (Ammir [facility] Physician) Body temperature 98.9 F 98.9 F [facility] ( Ammir [facility] Physician) Inhaled oxygen 97 % 97 % [facility] (Am esha concentration [facility] Physician) Body mass index 23.3 kg/m2 23.3 kg/m2 [facility] (A mmir (BMI) [Ratio] [facility] Physician) Diastolic blood 80 mm[Hg] 80 mm[Hg] [facility] (A mmir pressure [facility] Physician) Systolic blood 140 mm[Hg] 140 mm[Hg] [facility] (Am esha pressure [facility] Physician) Body weight 149 lb 149 lb [facility] (Ammir [facility] Physician) Body height 67 in in [facility] (Ammir [facility] Physician) Heart rate 76 /min 76 /min [facility] (Ammir [facility] Physician) Body temperature 98.9 F 98.9 F [facility] ( Ammir [facility] Physician) Inhaled oxygen 98 % 98 % [facility] (Am esha concentration [facility] Physician) Body mass index 24 kg/m2 24 kg/m2 [facility] (A mmir (BMI) [Ratio] [facility] Physician) Diastolic blood 78 mm[Hg] 78 mm[Hg] [facility] (A mmir pressure [facility] Physician) Systolic blood 132 mm[Hg] 132 mm[Hg] [facility] (Am esha pressure [facility] Physician) Body weight 153 lb 153 lb [facility] (Ammir [facility] Physician) Body height 67 in in [facility] (Ammir [facility] Physician) Heart rate 76 /min 76 /min [facility] (Ammir [facility] Physician) Body temperature 98.9 F 98.9 F [facility] ( Ammir [facility] Physician) Inhaled oxygen 98 % 98 % [facility] (Am esha concentration [facility] Physician) Body mass index 24 kg/m2 24 kg/m2 [facility] (A mmir (BMI) [Ratio] [facility] Physician) Diastolic blood 78 mm[Hg] 78 mm[Hg] [facility] (A mmir pressure [facility] Physician) Systolic blood 132 mm[Hg] 132 mm[Hg] [facility] (Am esha pressure [facility] Physician) Body weight 153 lb 153 lb [facility] (Ammir [facility] Physician) Body height 67 in in [facility] (Ammir [facility] Physician) Heart rate 76 /min 76 /min [facility] (Ammir [facility] Physician) Body temperature 98.9 F 98.9 F [facility] ( Ammir [facility] Physician) Inhaled oxygen 98 % 98 % [facility] (Am esha concentration [facility] Physician) Body mass index 24 kg/m2 24 kg/m2 [facility] (A mmir (BMI) [Ratio] [facility] Physician) Diastolic blood 78 mm[Hg] 78 mm[Hg] [facility] (A mmir pressure [facility] Physician) Systolic blood 132 mm[Hg] 132 mm[Hg] [facility] (Am esha pressure [facility] Physician) Body weight 153 lb 153 lb [facility] (Ammir [facility] Physician) Body height 67 in in [facility] (Ammir [facility] Physician) Body temperature 98.5 F 98.5 F [facility] ( Ammir [facility] Physician) Inhaled oxygen 97 % 97 % [facility] (Am esha concentration [facility] Physician) Diastolic blood 70 mm[Hg] 70 mm[Hg] [facility] (A mmir pressure [facility] Physician) Systolic blood 150 mm[Hg] 150 mm[Hg] [facility] (Am esha pressure [facility] Physician) Heart rate 83 /min 83 /min [facility] (Ammir [facility] Physician) Heart rate 83 /min 83 /min [facility] (Ammir [facility] Physician) Body temperature 98.5 F 98.5 F [facility] ( Ammir [facility] Physician) Inhaled oxygen 97 % 97 % [facility] (Am esha concentration [facility] Physician) Diastolic blood 70 mm[Hg] 70 mm[Hg] [facility] (A mmir pressure [facility] Physician) Systolic blood 150 mm[Hg] 150 mm[Hg] [facility] (Am esha pressure [facility] Physician) Heart rate 83 /min 83 /min [facility] (Ammir [facility] Physician) Body temperature 98.5 F 98.5 F [facility] ( Ammir [facility] Physician) Inhaled oxygen 97 % 97 % [facility] (Am esha concentration [facility] Physician) Diastolic blood 70 mm[Hg] 70 mm[Hg] [facility] (A mmir pressure [facility] Physician) Systolic blood 150 mm[Hg] 150 mm[Hg] [facility] (Am esha pressure [facility] Physician) Heart rate 81 /min 81 /min [facility] (Ammir [facility] Physician) Body temperature 99.1 F 99.1 F [facility] ( Ammir [facility] Physician) Inhaled oxygen 97 % 97 % [facility] (Am esha concentration [facility] Physician) Diastolic blood 70 mm[Hg] 70 mm[Hg] [facility] (A mmir pressure [facility] Physician) Systolic blood 140 mm[Hg] 140 mm[Hg] [facility] (Am esha pressure [facility] Physician) Heart rate 81 /min 81 /min [facility] (Ammir [facility] Physician) Body temperature 99.1 F 99.1 F [facility] ( Ammir [facility] Physician) Inhaled oxygen 97 % 97 % [facility] (Am esha concentration [facility] Physician) Diastolic blood 70 mm[Hg] 70 mm[Hg] [facility] (A mmir pressure [facility] Physician) Systolic blood 140 mm[Hg] 140 mm[Hg] [facility] (Am esha pressure [facility] Physician) Heart rate 81 /min 81 /min [facility] (Ammir [facility] Physician) Body temperature 99.1 F 99.1 F [facility] ( Ammir [facility] Physician) Inhaled oxygen 97 % 97 % [facility] (Am esha concentration [facility] Physician) Diastolic blood 70 mm[Hg] 70 mm[Hg] [facility] (A mmir pressure [facility] Physician) Systolic blood 140 mm[Hg] 140 mm[Hg] [facility] (Am esha pressure [facility] Physician) Heart rate 74 /min 74 /min [facility] (Ammir [facility] Physician) Inhaled oxygen 98 % 98 % [facility] (Am esha concentration [facility] Physician) Body mass index 23.8 kg/m2 23.8 kg/m2 [facility] (A mmir (BMI) [Ratio] [facility] Physician) Diastolic blood 78 mm[Hg] 78 mm[Hg] [facility] (A mmir pressure [facility] Physician) Systolic blood 138 mm[Hg] 138 mm[Hg] [facility] (Am esha pressure [facility] Physician) Body weight 152 lb 152 lb [facility] (Ammir [facility] Physician) Body height 67 in in [facility] (Ammir [facility] Physician) Heart rate 74 /min 74 /min [facility] (Ammir [facility] Physician) Inhaled oxygen 98 % 98 % [facility] (Am esha concentration [facility]ara Physician) Body mass index 23.8 kg/m2 23.8 kg/m2 [facility] (A mmir (BMI) [Ratio] [facility] Physician) Diastolic blood 78 mm[Hg] 78 mm[Hg] [facility] (A mmir pressure [facility] Physician) Systolic blood 138 mm[Hg] 138 mm[Hg] [facility] (Am esha pressure [facility] Physician) Body weight 152 lb 152 lb [facility] (Ammir [facility] Physician) Body height 67 in in [facility] (Ammir [facility] Physician) Heart rate 74 /min 74 /min [facility] (Ammir [facility] Physician) Inhaled oxygen 98 % 98 % [facility] (Am esha concentration Xiomara Physician) Body mass index 23.8 kg/m2 23.8 kg/m2 [facility] (A mmir (BMI) [Ratio] [facility] Physician) Diastolic blood 78 mm[Hg] 78 mm[Hg] [facility] (A mmir pressure [facility] Physician) Systolic blood 138 mm[Hg] 138 mm[Hg] [facility] (Am esha pressure Xiomara Physician) Body weight 152 lb 152 lb [facility] (Ammir [facility] Physician) Body height 67 in in [facility] (Ammir [facility] Physician) Heart rate 94 /min 94 /min [facility] (Ammir [facility] Physician) Inhaled oxygen 98 % 98 % [facility] (Am esha concentration Xiomara Physician) Body mass index 23.2 kg/m2 23.2 kg/m2 [facility] (A mmir (BMI) [Ratio] [facility] Physician) Diastolic blood 72 mm[Hg] 72 mm[Hg] [facility] (A mmir pressure [facility] Physician) Systolic blood 160 mm[Hg] 160 mm[Hg] [facility] (Am esha pressure Xiomara Physician) Body weight 148 lb 148 lb [facility] (Ammir [facility] Physician) Body height 67 in in [facility] (Ammir [facility] Physician) Heart rate 94 /min 94 /min [facility] ([facility]) Inhaled oxygen 98 % 98 % [facility] (Am esha concentration [facility]) Body mass index 23.2 kg/m2 23.2 kg/m2 [facility] (A mmir (BMI) [Ratio] [facility]) Diastolic blood 72 mm[Hg] 72 mm[Hg] [facility] (A mmir pressure [facility]) Systolic blood 160 mm[Hg] 160 mm[Hg] [facility] (Am es[facility] pressure [facility]) Body weight 148 lb 148 lb [facility] ([facility]) Body height 67 in in [facility] ([facility]) Body weight 148 lb 148 lb [facility] ([facility]) Body height 67 in in [facility] ([facility]) Heart rate 94 /min 94 /min [facility] ([facility]) Inhaled oxygen 98 % 98 % [facility] (Am es[facility] concentration [facility]) Body mass index 23.2 kg/m2 23.2 kg/m2 [facility] (A mmir (BMI) [Ratio] [facility]) Diastolic blood 72 mm[Hg] 72 mm[Hg] [facility] (A mmir pressure [facility]) Systolic blood 160 mm[Hg] 160 mm[Hg] [facility] (Am es[facility] pressure [facility]) Heart rate 75 /min 75 /min [facility] ([facility]) Inhaled oxygen 98 % 98 % [facility] (Am es[facility] concentration [facility]) Body mass index 26.1 kg/m2 26.1 kg/m2 [facility] (A mmir (BMI) [Ratio] [facility]) Diastolic blood 70 mm[Hg] 70 mm[Hg] [facility] (A mmir pressure [facility]) Systolic blood 150 mm[Hg] 150 mm[Hg] [facility] (Am [facility] pressure [facility]) Body weight 152 lb 152 lb [facility] ([facility]) Body height 64 in 64 in [facility] ([facility]) Heart rate 75 /min 75 /min [facility] ([facility]) Inhaled oxygen 98 % 98 % [facility] (Am es[facility] concentration [facility]) Body mass index 26.1 kg/m2 26.1 kg/m2 [facility] (A mmir (BMI) [Ratio] [facility]) Diastolic blood 70 mm[Hg] 70 mm[Hg] [facility] (A mmir pressure [facility]) Systolic blood 150 mm[Hg] 150 mm[Hg] [facility] (Am es[facility] pressure [facility]) Body weight 152 lb 152 lb [facility] ([facility]) Body height 64 in 64 in [facility] ([facility]) Heart rate 75 /min 75 /min [facility] ([facility]) Inhaled oxygen 98 % 98 % [facility] (Am es[facility] concentration [facility]) Body mass index 26.1 kg/m2 26.1 kg/m2 [facility] (A mmir (BMI) [Ratio] [facility]) Diastolic blood 70 mm[Hg] 70 mm[Hg] [facility] (A mmir pressure [facility]) Systolic blood 150 mm[Hg] 150 mm[Hg] [facility] (Am es[facility] pressure [facility]) Body weight 152 lb 152 lb [facility] ([facility]) Body height 64 in 64 in [facility] ([facility]) Heart rate 86 /min 86 /min [facility] ([facility]) Inhaled oxygen 95 % 95 % [facility] (Am es[facility] concentration [facility]) Body mass index 25.6 kg/m2 25.6 kg/m2 [facility] (A mmir (BMI) [Ratio] [facility]) Diastolic blood 90 mm[Hg] 90 mm[Hg] [facility] (A mmir pressure [facility]) Systolic blood 180 mm[Hg] 180 mm[Hg] [facility] (Am es[facility] pressure [facility]) Body weight 149 lb 149 lb [facility] ([facility]) Body height 64 in 64 in [facility] ([facility]) Heart rate 86 /min 86 /min [facility] ([facility]) Inhaled oxygen 95 % 95 % [facility] (Am es[facility] concentration [facility]) Body mass index 25.6 kg/m2 25.6 kg/m2 [facility] (A mmir (BMI) [Ratio] [facility]) Diastolic blood 90 mm[Hg] 90 mm[Hg] [facility] (A mmir pressure [facility]) Systolic blood 180 mm[Hg] 180 mm[Hg] [facility] (Am [facility] pressure [facility]) Body weight 149 lb 149 lb [facility] ([facility]) Body height 64 in 64 in [facility] ([facility]) Heart rate 86 /min 86 /min [facility] ([facility]) Inhaled oxygen 95 % 95 % [facility] (Am es[facility] concentration [facility]) Body mass index 25.6 kg/m2 25.6 kg/m2 [facility] (A mmir (BMI) [Ratio] [facility]) Diastolic blood 90 mm[Hg] 90 mm[Hg] [facility] (A mmir pressure [facility]) Systolic blood 180 mm[Hg] 180 mm[Hg] [facility] (Am es[facility] pressure [facility]) Body weight 149 lb 149 lb [facility] ([facility]) Body height 64 in 64 in [facility] ([facility]) Heart rate 86 /min 86 /min [facility] ([facility]) Inhaled oxygen 95 % 95 % [facility] (Am es[facility] concentration [facility]) Body mass index 25.6 kg/m2 25.6 kg/m2 [facility] (A mmir (BMI) [Ratio] [facility]) Diastolic blood 88 mm[Hg] 88 mm[Hg] [facility] (A mmir pressure [facility]) Systolic blood 170 mm[Hg] 170 mm[Hg] [facility] (Am es[facility] pressure [facility]) Body weight 149 lb 149 lb [facility] ([facility]) Body height 64 in 64 in [facility] ([facility]) Heart rate 86 /min 86 /min [facility] ([facility]) Inhaled oxygen 95 % 95 % [facility] (Am es[facility] concentration [facility]) Body mass index 25.6 kg/m2 25.6 kg/m2 [facility] (A mmir (BMI) [Ratio] [facility]) Diastolic blood 88 mm[Hg] 88 mm[Hg] [facility] (A mmir pressure [facility]) Systolic blood 170 mm[Hg] 170 mm[Hg] [facility] (Am [facility] pressure [facility]) Body weight 149 lb 149 lb [facility] ([facility]) Body height 64 in 64 in [facility] ([facility]) Heart rate 86 /min 86 /min [facility] ([facility]) Inhaled oxygen 95 % 95 % [facility] (Am es[facility] concentration [facility]) Body mass index 25.6 kg/m2 25.6 kg/m2 [facility] (A mmir (BMI) [Ratio] [facility]) Diastolic blood 88 mm[Hg] 88 mm[Hg] [facility] (A mmir pressure [facility]) Systolic blood 170 mm[Hg] 170 mm[Hg] [facility] (Am es[facility] pressure [facility]) Body weight 149 lb 149 lb [facility] ([facility]) Body height 64 in 64 in [facility] ([facility])
--- OUTSIDE RECORDS SUMMARY | 2020-07-06 05:23 | XMS ---
:1960 Author Organization [facility] Care Team Providers Name Role Phone YOON [...] is protected by Article 27-F of the [facility] Public Health law. If you continue you may haveaccess to information: Regarding HIV / AIDS; Provided by facilities licensed or operated by the [facility] Office of Mental Health; or Provided by the [facility] Office for People With Developmental Disabilities. If such information is present, then the following [facility] mandated warning applies: This information has [...] law may result in a fine or longterm sentence or both. A general authorization for the release of medical or other information is NOT sufficient authorization for further disclosure. Encounters Encounter Providers Location Date Indications Data Source(s ) Attender: [facility] 06/23/2020 MEDGEN (A mmir Xiomara 12:00:00 [...] Physician) Office Outpatient Attender: ABHI 10/22/2019 11:51:00 [facility] ANISAdmitter: AM EST [facility] YOONReferrer: YOON MOE Outpatient Attender: ABHI 10/22/2019 06:00:00 N18.6 [facility] LEENAELAdmitter: AM EST Z76.82 [facility] DANIMARCUSReferrer: YOON MOE N18.6 Z76.82 Medications Medication Brand Start Product Dose Route Administrative Pharmacy [facility] Indications Reaction Description Data Name Date Form Instructions Instructions Source(s) RENAPLEX-D: 06/02/ complet RENAPLEX -D MEDGEN [id number] ed (Ammir 12:00: Xiomara 00 AM Physician) EDT RENAPLEX-D: 06/02/ complet RENAPLEX -D MEDGEN [id number] ed (Ammir 12:00: Xiomara 00 AM Physician) EDT pitavastati LIVALO 08/05/ TABLET 90 complet LIVA LO MEDGEN n 4 MG Oral :[id number] 2019 ed (Ammir Tablet 4 12:00: Xiomara [Livalo] 00 AM Physician) LIVALO:8616 EDT 54 nebivolol 5 BYSTOL 08/05/ TABLET 90 complet BYST OLIC MEDGEN MG Oral IC:387 2019 ed (Ammir Tablet 013 12:00: Xiomara BYSTOLIC:38 00 AM Physici an) 7013 EDT pitavastati LIVALO 08/05/ TABLET 90 complet LIVA LO MEDGEN n 4 MG Oral :52504 2019 ed (Ammir Tablet 4 12:00: Xiomara [Livalo] 00 AM Physician) LIVALO:8616 EDT 54 Amlodipine AMLODI 08/05/ TABLET 90 complet AMLOD IPINE MEDGEN 10 MG Oral PINE:3 2019 ed (Ammir Tablet 99953 12:00: Xiomara AMLODIPINE: 00 AM Physici an) 680816 EDT nebivolol 5 BYSTOL 08/05/ TABLET 90 complet BYST OLIC MEDGEN MG Oral IC:387 2019 ed (Ammir Tablet 013 12:00: Xiomara BYSTOLIC:38 00 AM Physici an) 7013 EDT pitavastati LIVALO 04/22/ TABLET 90 complet LIVA LO MEDGEN n 4 MG Oral :78436 2019 ed (Ammir Tablet 4 12:00: Xiomara [Livalo] 00 AM Physician) LIVALO:8616 EDT 54 Amlodipine AMLODI 05/ TABLET 90 complet AMLOD IPINE MEDGEN 10 MG Oral PINE:3 2019 ed (Ammir Tablet 13887 12:00: Xiomara AMLODIPINE: 00 AM Physici an) 940176 EDT Amlodipine AMLODI 05/ TABLET 90 complet AMLOD IPINE MEDGEN 10 MG Oral PINE:3 2019 ed (Ammir Tablet 61438 12:00: Xiomara AMLODIPINE: 00 AM Physici an) 894547 EDT nebivolol 5 BYSTOL 04/22/ TABLET 90 complet BYST OLIC MEDGEN MG Oral IC:387 2019 ed (Ammir Tablet 013 12:00: Xiomara BYSTOLIC:38 00 AM Physici an) 7013 EDT Budesonide SYMBIC 02/24/ AEROSOL 3 complet SYMB ICORT MEDGEN 0.08 ORT:40 2019 ed (Ammir MG/ACTUAT / 9732 12:00: Xiomara formoterol 00 AM Physicia n) 0.0045 EDT MG/ACTUAT Inhalant Powder SYMBICORT:4 42196 Lisinopril LISINO 02/24/ TABLET 90 complet LISIN OPRIL MEDGEN 10 MG Oral PRIL:3 2019 ed (Ammir Tablet 51014 12:00: Xiomara LISINOPRIL: 00 AM Physici an) 560365 EDT 200 ACTUAT ALBUTE 02/24/ AEROSOL 1 complet ALBU TEROL MEDGEN Albuterol ROL 2019 ed SULFATE HFA (Am esha 0.09 SULFAT 12:00: Xiomara MG/ACTUAT E 00 AM Physician ) Metered HFA:74 EDT Dose 5679 Inhaler ALBUTEROL SULFATE HFA:082259 GLUCOSE complet GLUCOSE MEDG EN METER TEST 2019 ed METER TEST (Am esha IN VITRO 12:00: IN VITRO Rabad i STRIP: 00 AM STRIP Physician) EDT 3 ML LANTUS 02/24/ SOLUTION 3 complet LANTUS ME DGEN Insulin SOLOST 2020 ed SOLOSTAR PEN (A mmir Glargine [place] 12:00: Xiomara 100 UNT/ML PEN:84 00 AM Physic nico) Pen 7232 EDT Injector [Lantus] LANTUS SOLOSTAR PEN:076029 3 ML LANTUS 02/24/ SOLUTION 3 complet LANTUS ME DGEN Insulin SOLOST 2020 ed SOLOSTAR PEN (A mmir Glargine [place] 12:00: Xiomara 100 UNT/ML PEN:84 00 AM Physic nico) Pen 7232 EDT Injector [Lantus] LANTUS SOLOSTAR PEN:364190 GLUCOSE complet GLUCOSE MEDG EN METER TEST 2019 ed METER TEST (Am esha IN VITRO 12:00: IN VITRO Rabad i STRIP: 00 AM STRIP Physician) EDT 200 ACTUAT ALBUTE 02/24/ AEROSOL 1 complet ALBU TEROL MEDGEN Albuterol ROL 2019 ed SULFATE HFA (Am esha 0.09 SULFAT 12:00: Xiomara MG/ACTUAT E 00 AM Physician ) Metered HFA:74 EDT Dose 5679 Inhaler ALBUTEROL SULFATE HFA:571499 Budesonide SYMBIC 02/24/ AEROSOL 3 complet SYMB ICORT MEDGEN 0.08 ORT:40 2019 ed (Ammir MG/ACTUAT / 9732 12:00: Xiomara formoterol 00 AM Physicia n) 0.0045 EDT MG/ACTUAT Inhalant Powder SYMBICORT:4 51265 200 ACTUAT ALBUTE 02/24/ AEROSOL 1 complet ALBU TEROL MEDGEN Albuterol ROL 2019 ed SULFATE HFA (Am esha 0.09 SULFAT 12:00: Xiomara MG/ACTUAT E 00 AM Physician ) Metered HFA:74 EDT Dose 5679 Inhaler ALBUTEROL SULFATE HFA:131936 Lisinopril LISINO 02/24/ TABLET 90 complet LISIN OPRIL MEDGEN 10 MG Oral PRIL:3 2019 ed (Ammir Tablet 31378 12:00: Xiomara LISINOPRIL: 00 AM Physici an) 949100 EDT GLUCOSE complet GLUCOSE MEDG EN METER TEST 2019 ed METER TEST (Am esha IN VITRO 12:00: IN VITRO Rabad i STRIP: 00 AM STRIP Physician) EDT Lisinopril LISINO 02/24/ TABLET 90 complet LISIN OPRIL MEDGEN 10 MG Oral PRIL:3 2019 ed (Ammir Tablet 66372 12:00: Xiomara LISINOPRIL: 00 AM Physici an) 726940 EDT Budesonide SYMBIC 02/24/ AEROSOL 3 complet SYMB ICORT MEDGEN 0.08 ORT:40 2019 ed (Ammir MG/ACTUAT / 9732 12:00: Xiomara formoterol 00 AM Physicia n) 0.0045 EDT MG/ACTUAT Inhalant Powder SYMBICORT:4 02200 3 ML LANTUS 02/24/ SOLUTION 3 complet LANTUS ME DGEN Insulin SOLOST 2019 ed SOLOSTAR PEN (A mmir Glargine [place] 12:00: Xiomara 100 UNT/ML PEN:84 00 AM Physic nico) Pen 7232 EDT Injector [Lantus] LANTUS SOLOSTAR PEN:681960 Albuterol ALBUTE 07/ SOLUTION 3 complet ALBU TEROL MEDGEN 0.83 MG/ML ROL:63 2019 ed (Ammir Inhalant 0208 12:00: Xiomara Solution 00 AM Physician) ALBUTEROL:6 EDT 38134 Albuterol ALBUTE 07/ SOLUTION 3 complet ALBU TEROL MEDGEN 0.83 MG/ML ROL:63 2019 ed (Ammir Inhalant 0208 12:00: Xiomara Solution 00 AM Physician) ALBUTEROL:6 EDT 85736 Albuterol ALBUTE 07/ SOLUTION 3 complet ALBU TEROL MEDGEN 0.83 MG/ML ROL:63 2019 ed (Ammir Inhalant 0208 12:00: Xiomara Solution 00 AM Physician) ALBUTEROL:6 EDT 92691 3 ML LANTUS 17/ SOLUTION 3 complet LANTUS ME DGEN Insulin :02046 2019 ed (Ammir Glargine 0 12:00: Xiomara 100 UNT/ML 00 AM Physicia n) Pen EDT Injector LANTUS:8472 30 3 ML LANTUS 17/ SOLUTION 3 complet LANTUS ME DGEN Insulin :56117 2019 ed (Ammir Glargine 0 12:00: Xiomara 100 UNT/ML 00 AM Physicia n) Pen EDT Injector LANTUS:8472 30 3 ML LANTUS 03/17/ SOLUTION 3 complet LANTUS ME DGEN Insulin :88290 2019 ed (Ammir Glargine 0 12:00: Xiomara [...] i UNT/ML Pen N:1652 00 AM Physic nioc) Injector 640 EST [Humalog] HUMALOG KWIKPEN:165 2640 Omeprazole OMEPRA 07/31/ DELAYED 90 complet OMEP RAZOLE MEDGEN 40 MG ZOLE:2 2018 RELEASE ed (Ammir Delayed 32271 12:00: CAPSULE Xiomara Release 00 AM Physician) Oral EST Capsule OMEPRAZOLE: 20021027 Omeprazole OMEPRA 07/31/ DELAYED 90 complet OMEP RAZOLE MEDGEN 40 MG ZOLE:2 2018 RELEASE ed (Ammir Delayed 65460 12:00: CAPSULE Xiomara Release 00 AM Physician) Oral EST Capsule OMEPRAZOLE: 20021027 Omeprazole OMEPRA 07/31/ DELAYED 90 complet OMEP RAZOLE MEDGEN 40 MG ZOLE:2 2018 RELEASE ed (Ammir Delayed 10932 12:00: CAPSULE Xiomara Release 00 AM Physician) Oral EST Capsule OMEPRAZOLE: 20021027 Insurance Providers Payer name Policy type Policy ID Covered Covered constitution party's Policy P robert / Coverage constitution party ID relationship to Lance Inf ormation type lance GHI CBP [id number] S [id number] OUTPT BC PPO [facility] [id number] S [facility] [id number] GHI CBP [id number] S [id number] OUTPT BC PPO [facility] [id number] S [facility] [id number] BC PPO [id number] S [id number] GHI CBP [id number] S [id number] OUTPT EMBLEM [id number] 2 [id number] HEALTH Problems, Conditions, and Diagnoses Code Display [...] Z01.818 Encounter for ENCOUNTER FOR Diagnosis 10/22/[address] [facility] [address] other OTHER 11:51:00 AM [facility] preprocedural PREPROCEDURAL EST Care examination [employer] Z76.82 Awaiting organ AWAITING ORGAN Diagnosis 10/22/2019 [facility] status TRANSPLANT STATUS 06:00:00 AM [facility] N18.6 End stage renal END STAGE RENAL Diagnosis 10/22/2019 [place] disease DISEASE 06:00:00 AM [facility] Surgeries/Procedures Procedure Description Date Indications [...] AM EDT P hysician) Medication Reconciliation 01/28/2020 [place] DGEN (Ammir Xiomara (procedure) 12:00:00 AM EDT [...] AM EDT P hysician) Medication Reconciliation 01/23/2020 HI DGEN (Ammir Xiomara (procedure) 12:00:00 AM EDT Physician) Documentation of current 01/23/2020 MED GEN (Ammir Xiomara medications (procedure) 12:00:00 AM EDT P hysician) Medication Reconciliation 01/23/2020 HI DGEN (Ammir Xiomara (procedure) 12:00:00 AM EDT [...] P hysician) Results ID Date Data Source [id number] 07/01/2020 02:26:00 PM EDT [facility] Name Value Range Interpretation Description Data Sup porting Code Source(s) Document(s ) SARS [facility] coronavirus 2 RNA This lab was ordered by [facility] and reported by [facility]. ID Date Data Source [id number] 05/13/2020 05:50:00 AM EDT [facility] Name Value Range Interpretation Description Data Sup porting Code Source(s) Document(s ) SARS [facility] coronavirus 2 RNA This lab was ordered by [facility] and reported by [facility]. ID Date Data Source [id number] 02/19/2020 12:00:00 AM EDT MEDGEN (Ammir Xiomara [...] results) Xiomara Physician) ID Date Data Source [id number] 02/19/2020 12:00:00 AM EDT [facility] (Ammir Xiomara Physician) Name Value Range Interpretation Description Data Sup porting Code Source(s) Document(s ) PHOSPHATE 5.7 mg/dL Above high normal MEDGEN (Ammi r (PHOSPHORUS) Xiomara Physician) ID Date Data Source [id number] 02/19/2020 12:00:00 AM EDT [facility] (Ammir Xiomara Physician) Name Value Range Interpretation Description Data Sup porting Code Source(s) Document(s ) HEPATITIS BS NONREACTIVE Normal (applies MEDGEN AG SCREEN to non-numeric (Ammir results) Xiomara Physician) ID Date Data Source [id number] 02/19/2020 12:00:00 AM EDT [facility] (Ammir Xiomara Physician) Name Value Range Interpretation Description Data Sup porting Code Source(s) Document(s ) PROTHROMBIN 11.4 sec Below low normal MEDGEN TIME, PT (Ammir Xiomara Physician) INR 0.82 Below low normal MEDGEN (Ammir Xiomara Physician) ID Date Data Source [id number] 02/19/2020 12:00:00 AM EDT MEDGEN (Ammir Xiomara [...] EGFR AFR 13 Below low normal [facility]GEN [place] mL/min/1 (Ammir .73m2 Xiomara Physician) EGFR NON AFR 11 Below low normal [facility]GEN [place] mL/min/1 (Ammir .73m2 Xiomara Physician) ID Date Data Source [id number] 02/19/2020 12:00:00 AM EDT MEDGEN (Ammir Xiomara [...] (applies MEDGEN 10(3)/uL to non-numeric (Ammir results) Xoimara Physician) Eosinophil Abs 0.47 Above high normal [...] results) Xiomara Physician) ID Date Data Source [id number] 02/19/2020 12:00:00 AM EDT [facility]GEN (Ammir Xiomara Physician) Name Value Range Interpretation Description Data Sup porting Code Source(s) Document(s ) PHOSPHATE 5.7 mg/dL Above high normal MEDGEN (Ammi r (PHOSPHORUS) Xiomara Physician) ID Date Data Source [id number] 02/19/2020 12:00:00 AM EDT [facility] (Ammir Xiomara Physician) Name Value Range Interpretation Description Data Sup porting Code Source(s) Document(s ) HEPATITIS BS NONREACTIVE Normal (applies MEDGEN AG SCREEN to non-numeric (Ammir results) Xiomara Physician) ID Date Data Source [id number] 02/19/2020 12:00:00 AM EDT [facility] (Ammir Xiomara Physician) Name Value Range Interpretation Description Data Sup porting Code Source(s) Document(s ) PROTHROMBIN 11.4 sec Below low normal MEDGEN TIME, PT (Ammir Xiomara Physician) INR 0.82 Below low normal MEDGEN (Ammir Xiomara Physician) ID Date Data Source [id number] 02/19/2020 12:00:00 AM EDT MEDGEN (Ammir Xiomara [...] NON AFR 11 Below low normal [facility]GEN [place] mL/min/1 (Ammir .73m2 Xoimara Physician) EGFR AFR 13 Below low normal [facility]GEN [place] mL/min/1 (Ammir .73m2 Xiomara Physician) ID Date Data Source [id number] 02/19/2020 12:00:00 AM EDT MEDGEN (Ammir Xiomara [...] results) Xiomara Physician) ID Date Data Source [id number] 02/19/2020 12:00:00 AM EDT [facility] (Ammir Xiomara Physician) Name Value Range Interpretation Description Data Sup porting Code Source(s) Document(s ) PHOSPHATE 5.7 mg/dL Above high normal MEDGEN (Ammi r (PHOSPHORUS) Xiomara Physician) ID Date Data Source [id number] 02/19/2020 12:00:00 AM EDT [facility] (Ammir Xiomara Physician) Name Value Range Interpretation Description Data Sup porting Code Source(s) Document(s ) HEPATITIS BS NONREACTIVE Normal (applies MEDGEN AG SCREEN to non-numeric (Ammir results) Xiomara Physician) ID Date Data Source [id number] 02/19/2020 12:00:00 AM EDT [facility] (Ammir Xiomara Physician) Name Value Range Interpretation Description Data Sup porting Code Source(s) Document(s ) PROTHROMBIN 11.4 sec Below low normal MEDGEN TIME, PT (Ammir Xiomara Physician) INR 0.82 Below low normal MEDGEN (Ammir Xiomara Physician) ID Date Data Source [id number] 02/19/2020 12:00:00 AM EDT MEDGEN (Ammir Xiomara [...] NON AFR 11 Below low normal MEDGEN [place] mL/min/1 (Ammir .73m2 Xiomara Physician) EGFR AFR 13 Below low normal MEDGEN [place] mL/min/1 (Ammir .73m2 Xiomara Physician) ID Date Data Source [id number] 02/11/2020 03:31:00 PM EDT [facility] Name Value Range Interpretation Code Description Data Ariane rce(s) Supporting Document(s ) SARS-COV-2 [facility] RNA RESP Diagnostics QL SIM+PROBE This lab was ordered by [facility] and reported by [facility]. ID Date Data Source [id number] 01/29/2020 12:00:00 AM EDT MEDGEN (Ammir Xiomara Physician) Name Value Range Interpretation Description Data Sup porting Code Source(s) Document(s ) SARS-COV- Not Detected Normal (applies to MEDGEN ( Ammir 2 non-numeric Xiomara results) Physician) ID Date Data Source [id number] 01/29/2020 12:00:00 AM EDT MEDGEN (Ammir Xiomara [...] results) Xiomara Physician) ID Date Data Source [id number] 01/29/2020 12:00:00 AM EDT [facility] (Ammir Xiomara Physician) Name Value Range Interpretation Description Data Sup porting Code Source(s) Document(s ) Ferritin 98.7 Normal (applies to MEDGEN (Amm ir [Interpretat ng/mL non-numeric Xiomara ion] in results) Physician) Blood ID Date Data Source [id number] 01/29/2020 12:00:00 AM EDT [facility] (Ammir Xiomara [...] results) Xiomara Physician) ID Date Data Source [id number] 01/29/2020 12:00:00 AM EDT [facility] (Ammir Xiomara [...] results) Xiomara Physician) ID Date Data Source [id number] 01/29/2020 12:00:00 AM EDT [facility] (Ammir Xiomara Physician) Name Value Range Interpretation Code Description Data Ariane rce(s) Supporting Document(s ) IRON, 74 ug/dL Normal (applies to MEDGEN (Amm ir TOTAL non-numeric Xiomara results) Physician) ID Date Data Source [id number] 01/29/2020 12:00:00 AM EDT MEDGEN (Ammir Xiomara [...] NON AFR 12 Below low normal [facility] [place] mL/min/1 (Ammir .73m2 Xiomara Physician) EGFR AFR 15 Below low normal MEDGEN [place] mL/min/1 (Ammir .73m2 Xiomara Physician) ID Date Data Source [id number] 01/29/2020 12:00:00 AM EDT [facility] (Ammir Xiomara Physician) Name Value Range Interpretation Description Data Sup porting Code Source(s) Document(s ) SARS-COV- Not Detected Normal (applies to MEDGEN ( Ammir 2 non-numeric Xiomara results) Physician) ID Date Data Source [id number] 01/29/2020 12:00:00 AM EDT MEDGEN (Ammir Xiomara [...] results) Xiomara Physician) ID Date Data Source [id number] 01/29/2020 12:00:00 AM EDT [facility] (Ammir Xiomara Physician) Name Value Range Interpretation Description Data Sup porting Code Source(s) Document(s ) Ferritin 98.7 Normal (applies to MEDGEN (Amm ir [Interpretat ng/mL non-numeric Xiomara ion] in results) Physician) Blood ID Date Data Source [id number] 01/29/2020 12:00:00 AM EDT MEDGEN (Ammir Xiomara [...] normal MEDGEN [Pure volume (Ammir fraction] of [facility] Blood by Physician) Automated count MCV 88.7 [...] high normal MEDGEN Granulocyte Abs 10(3)/uL (Ammir Ximoara Physician) Neutrophil % 65.70 % Normal (applies [...] results) Xiomara Physician) ID Date Data Source [id number] 01/29/2020 12:00:00 AM EDT MEDGEN (Ammir Xiomara [...] results) Xiomara Physician) ID Date Data Source [id number] 01/29/2020 12:00:00 AM EDT [facility] (Ammir Xiomara Physician) Name Value Range Interpretation Code Description Data Ariane rce(s) Supporting Document(s ) IRON, 74 ug/dL Normal (applies to MEDGEN (Amm ir TOTAL non-numeric Xiomara results) Physician) ID Date Data Source [id number] 01/29/2020 12:00:00 AM EDT MEDGEN (Ammir Xiomara [...] (applies MEDGEN RATIO to non-numeric (Ammir results) Xiomraa Physician) CALCIUM, SERUM 8.8 Normal (applies MEDGEN [...] NON AFR 12 Below low normal MEDGEN [place] mL/min/1 (Ammir .73m2 Xiomara Physician) AST 23 U/L Normal (applies MEDGEN to non-numeric (Ammir results) Xiomara Physician) EGFR AFR 15 Below low normal [facility]GEN [place] mL/min/1 (Ammir .73m2 Xiomara Physician) ID Date Data Source [id number] 01/29/2020 12:00:00 AM EDT [facility] (Ammir Xiomara Physician) Name Value Range Interpretation Description Data Sup porting Code Source(s) Document(s ) SARS-COV- Not Detected Normal (applies to MEDGEN ( Ammir 2 non-numeric Xiomara results) Physician) ID Date Data Source [id number] 01/29/2020 12:00:00 AM EDT MEDGEN (Ammir Xiomara [...] results) Xiomara Physician) ID Date Data Source [id number] 01/29/2020 12:00:00 AM EDT [facility] (Ammir Xiomara Physician) Name Value Range Interpretation Description Data Sup porting Code Source(s) Document(s ) Ferritin 98.7 Normal (applies to MEDGEN (Amm ir [Interpretat ng/mL non-numeric Xiomara ion] in results) Physician) Blood ID Date Data Source [id number] 01/29/2020 12:00:00 AM EDT MED[facility] (Ammir Xiomara [...] results) Xiomara Physician) ID Date Data Source [id number] 01/29/2020 12:00:00 AM EDT [facility] (Ammir Xiomara [...] results) Xiomara Physician) ID Date Data Source [id number] 01/29/2020 12:00:00 AM EDT [facility] (Ammir Xiomara Physician) Name Value Range Interpretation Code Description Data Ariane rce(s) Supporting Document(s ) IRON, 74 ug/dL Normal (applies to MEDGEN (Amm ir TOTAL non-numeric Xiomara results) Physician) ID Date Data Source [id number] 01/29/2020 12:00:00 AM EDT MED[facility] (Ammir Xiomara [...] NON AFR 12 Below low normal [facility] [place] mL/min/1 (Ammir .73m2 Xiomara Physician) EGFR AFR 15 Below low normal [facility] [place] mL/min/1 (Ammir .73m2 Xiomara Physician) ID Date Data Source [id number] 01/28/2020 04:30:00 PM EDT [facility] Name Value Range Interpretation Description Data Sup porting Code Source(s) Document(s ) SARS [facility] CORONAVIRUS 2 RNA This lab was ordered by [facility] and reported by [facility]. ID Date Data Source [id number] 01/28/2020 01:53:00 PM EDT [facility] Name Value Range Interpretation Code Description Data Ariane rce(s) Supporting Document(s ) SARS-COV-2 [facility] This lab was ordered by [facility] and reported by [facility]. ID Date Data Source [id number] 01/24/2020 12:00:00 AM EDT [facility] (Ammir Xiomara Physician) Name Value Range Interpretation Code Description Data Ariane rce(s) Supporting Document(s ) SARS-CoV- NEGATIVE Normal (applies to MEDGEN (Amm ir 2 IGG non-numeric Xiomara results) Physician) ID Date Data Source [id number] 01/24/2020 12:00:00 AM EDT [facility] (Ammir Xiomara Physician) Name Value Range Interpretation Description Data Sup porting Code Source(s) Document(s ) SARS-COV- Not Detected Normal (applies to MEDGEN ( Ammir 2 non-numeric Xiomara results) Physician) ID Date Data Source [id number] 01/24/2020 12:00:00 AM EDT [facility] (Ammir Xiomara [...] results) Xiomara Physician) ID Date Data Source [id number] 01/24/2020 12:00:00 AM EDT [facility] (Ammir Xiomara Physician) Name Value Range Interpretation Description Data Sup porting Code Source(s) Document(s ) MICROALBUMIN Normal (applies to MEDGEN ( Ammir URINE non-numeric Xiomara results) Physician) CREATININE, Below low normal MEDGEN (Amm ir URINE Xiomara Physician) MICROALBUMIN/CRE Below low normal MEDGEN (Ammir ATININ RATIO Xiomara Physician) ID Date Data Source [id number] 01/24/2020 12:00:00 AM EDT [facility] (Ammir Xiomara Physician) Name Value Range Interpretation Description Data Sup porting Code Source(s) Document(s ) ORGANISM Normal (applies MEDGEN to non-numeric (Ammir results) Xiomara Physician) Comment Normal (applies MEDGEN [Interpretation] to non-numeric (Ammir Left eye Narrative results) Xiomara Ophthalmometer Physician) ID Date Data Source [id number] 01/24/2020 12:00:00 AM EDT [facility] (Ammir Xiomara Physician) Name Value Range Interpretation Code Description Data Ariane rce(s) Supporting Document(s ) APTT 33.50 sec Normal (applies to MEDGEN (Amm ir non-numeric results) Xiomara Physician) ID Date Data Source [id number] 01/24/2020 12:00:00 AM EDT [facility] (Ammir Xiomara [...] (Ammir Xiomara Physician) ID Date Data Source [id number] 01/24/2020 12:00:00 AM EDT [facility] (Ammir Xiomara Physician) Name Value Range Interpretation Description Data Sup porting Code Source(s) Document(s ) PROTHROMBIN 12.5 sec Normal (applies MEDGEN TIME, PT to non-numeric (Ammir results) Xiomara Physician) INR 0.91 Normal (applies MEDGEN to non-numeric (Ammir results) Xiomara Physician) ID Date Data Source [id number] 01/24/2020 12:00:00 AM EDT [facility] (Ammir Xiomara [...] results) Xiomara Physician) ID Date Data Source [id number] 01/24/2020 12:00:00 AM EDT [facility] (Ammir Xiomara Physician) Name Value Range Interpretation Description Data Sup porting Code Source(s) Document(s ) Hemoglobin A1c 6.6 % Above high normal [facility] (Ammir in Blood Xiomara Physician) ID Date Data Source [id number] 01/24/2020 12:00:00 AM EDT [facility] (Ammir Xiomara [...] Xiomara for unspecified Physician) duration A/G RATIO 1.75 [...] NON AFR 13 Below low normal [facility] [place] mL/min/1 (Ammir .73m2 Xiomara Physician) EGFR AFR 16 Below low normal [facility] [place] mL/min/1 (Ammir .73m2 Xiomara Physician) ID Date Data Source [id number] 01/24/2020 12:00:00 AM EDT [facility] (Ammir Xiomara Physician) Name Value Range Interpretation Code Description Data Ariane rce(s) Supporting Document(s ) SARS-CoV- NEGATIVE Normal (applies to MEDGEN (Amm ir 2 IGG non-numeric Xiomara results) Physician) ID Date Data Source [id number] 01/24/2020 12:00:00 AM EDT [facility] (Ammir Xiomara Physician) Name Value Range Interpretation Description Data Sup porting Code Source(s) Document(s ) SARS-COV- Not Detected Normal (applies to MEDGEN ( Ammir 2 non-numeric Xiomara results) Physician) ID Date Data Source [id number] 01/24/2020 12:00:00 AM EDT [facility] (Ammir Xiomara [...] results) Xiomara Physician) ID Date Data Source [id number] 01/24/2020 12:00:00 AM EDT [facility] (Ammir Xiomara Physician) Name Value Range Interpretation Description Data Sup porting Code Source(s) Document(s ) MICROALBUMIN Normal (applies to MEDGEN ( Ammir URINE non-numeric Xiomara results) Physician) CREATININE, Below low normal MEDGEN (Amm ir URINE Xiomara Physician) MICROALBUMIN/CRE Below low normal [facility] (Ammir ATININ RATIO Xiomara Physician) ID Date Data Source [id number] 01/24/2020 12:00:00 AM EDT [facility] (Ammir Xiomara Physician) Name Value Range Interpretation Description Data Sup porting Code Source(s) Document(s ) ORGANISM Normal (applies MEDGEN to non-numeric (Ammir results) Xiomara Physician) Comment Normal (applies [facility]GEN [Interpretation] to non-numeric (Ammir Left eye Narrative results) Xiomara Ophthalmometer Physician) ID Date Data Source [id number] 01/24/2020 12:00:00 AM EDT [facility] (Ammir Xiomara Physician) Name Value Range Interpretation Code Description Data Ariane rce(s) Supporting Document(s ) APTT 33.50 sec Normal (applies to MEDGEN (Amm ir non-numeric results) Xiomara Physician) ID Date Data Source [id number] 01/24/2020 12:00:00 AM EDT [facility] (Ammir Xiomara [...] (Ammir Xiomara Physician) ID Date Data Source [id number] 01/24/2020 12:00:00 AM EDT [facility] (Ammir Xiomara Physician) Name Value Range Interpretation Description Data Sup porting Code Source(s) Document(s ) INR 0.91 Normal (applies [facility] to non-numeric (Ammir results) Xiomara Physician) PROTHROMBIN 12.5 sec Normal (applies [facility] TIME, PT to non-numeric (Ammir results) Xiomara Physician) ID Date Data Source [id number] 01/24/2020 12:00:00 AM EDT [facility] (Ammir Xiomara [...] results) Xiomara Physician) ID Date Data Source [id number] 01/24/2020 12:00:00 AM EDT [facility] (Ammir Xiomara Physician) Name Value Range Interpretation Description Data Sup porting Code Source(s) Document(s ) Hemoglobin A1c 6.6 % Above high normal [facility] (Ammir in Blood Xiomara Physician) ID Date Data Source [id number] 01/24/2020 12:00:00 AM EDT [facility] (Ammir Xiomara [...] 56 mg/dL Above high normal [facility] NITROGEN (mir Xiomara Physician) BUN/CREATININE 11.4 Normal (applies [facility] [...] NON AFR 13 Below low normal [facility] [place] mL/min/1 (Ammir .73m2 Xiomara Physician) EGFR AFR 16 Below low normal [facility] [place] mL/min/1 (Ammir .73m2 Xiomara Physician) ID Date Data Source [id number] 01/24/2020 12:00:00 AM EDT [facility] (Ammir Xiomara Physician) Name Value Range Interpretation Code Description Data Ariane rce(s) Supporting Document(s ) SARS-CoV- NEGATIVE Normal (applies to [facility] (Amm ir 2 IGG non-numeric Xiomara results) Physician) ID Date Data Source [id number] 01/24/2020 12:00:00 AM EDT [facility] (Ammir Xiomara Physician) Name Value Range Interpretation Description Data Sup porting Code Source(s) Document(s ) SARS-COV- Not Detected Normal (applies to [facility] ( Ammir 2 non-numeric Xiomara results) Physician) ID Date Data Source [id number] 01/24/2020 12:00:00 AM EDT [facility] (Ammir Xiomara [...] results) Xiomara Physician) ID Date Data Source [id number] 01/24/2020 12:00:00 AM EDT [facility] (Ammir Xiomara Physician) Name Value Range Interpretation Description Data Sup porting Code Source(s) Document(s ) MICROALBUMIN Normal (applies to [facility] ( Ammir URINE non-numeric Xiomara results) Physician) CREATININE, Below low normal [facility] (Amm ir URINE Xiomara Physician) MICROALBUMIN/CRE Below low normal [facility] (Ammir ATININ RATIO Xiomara Physician) ID Date Data Source [id number] 01/24/2020 12:00:00 AM EDT [facility] (Ammir Xiomara Physician) Name Value Range Interpretation Description Data Sup porting Code Source(s) Document(s ) ORGANISM Normal (applies [facility] to non-numeric (Ammir results) Xiomara Physician) Comment Normal (applies [facility] [Interpretation] to non-numeric (Ammir Left eye Narrative results) Xiomara Ophthalmometer Physician) ID Date Data Source [id number] 01/24/2020 12:00:00 AM EDT [facility] (Ammir Xiomara Physician) Name Value Range Interpretation Code Description Data Ariane rce(s) Supporting Document(s ) APTT 33.50 sec Normal (applies to [facility] (Amm ir non-numeric results) Xiomara Physician) ID Date Data Source [id number] 01/24/2020 12:00:00 AM EDT [facility] (Ammir Xiomara [...] (Ammir Xiomara Physician) ID Date Data Source [id number] 01/24/2020 12:00:00 AM EDT [facility] (Ammir Xiomara Physician) Name Value Range Interpretation Description Data Sup porting Code Source(s) Document(s ) INR 0.91 Normal (applies [facility] to non-numeric (Ammir results) Xiomara Physician) PROTHROMBIN 12.5 sec Normal (applies [facility] TIME, PT to non-numeric (Ammir results) Xiomara Physician) ID Date Data Source [id number] 01/24/2020 12:00:00 AM EDT [facility] (Ammir Xiomara [...] results) Xiomara Physician) ID Date Data Source [id number] 01/24/2020 12:00:00 AM EDT [facility] (Ammir Xiomara Physician) Name Value Range Interpretation Description Data Sup porting Code Source(s) Document(s ) Hemoglobin A1c 6.6 % Above high normal [facility] (Ammir in Blood Xiomara Physician) ID Date Data Source [id number] 01/24/2020 12:00:00 AM EDT [facility] (Ammir Xiomara [...] NON AFR 13 Below low normal [facility] [place] mL/min/1 (Ammir .73m2 Xiomara Physician) EGFR AFR 16 Below low normal [facility] [place] mL/min/1 (Ammir .73m2 Xiomara Physician) ID Date Data Source [id number] 01/23/2020 02:04:00 PM EDT [facility] Name Value Range Interpretation Code Description Data Ariane rce(s) Supporting Document(s ) SARS-COV-2 [place] This lab was ordered by [employer] and reported by [employer]. ID Date Data Source [id number] 01/07/2020 12:00:00 AM EDT [facility] (Ammir Xiomara [...] results) Xiomara Physician) ID Date Data Source [id number] 01/07/2020 12:00:00 AM EDT [facility] (Ammir Xiomara [...] eGFR NON-AFR. 12 Below low normal [facility] [place] mL/min/1 (Ammir .73m2 Xiomara Physician) eGFR 14 Below low normal [facility] [place] mL/min/1 (Ammir .73m2 Xiomara Physician) BUN/CREATININE 9 [...] results) Xiomara Physician) ID Date Data Source [id number] 01/07/2020 12:00:00 AM EDT [facility] (Ammir Ximoara Physician) Name Value Range Interpretation Description Data [...] (Ammir Xiomara Physician) ID Date Data Source [id number] 01/07/2020 12:00:00 AM EDT [facility] (Ammir Xiomara [...] results) Xiomara Physician) ID Date Data Source [id number] 01/07/2020 12:00:00 AM EDT [facility] (Ammir Xiomara Physician) Name Value Range Interpretation Description Data Sup porting Code Source(s) Document(s ) Glucose 116 Above high normal [facility] [Mass/volume] in mg/dL (Ammir Urine collected Xiomara for unspecified Physician) duration UREA NITROGEN 42 mg/dL Above high normal [facility] (BUN) (Ammir Xioamra Physician) Creatinine 4.73 Above high normal [facility] [Interpretation] mg/dL (Ammir in Urine Xiomara Physician) eGFR NON-AFR. 12 Below low normal [facility] [place] mL/min/1 (Ammir .73m2 Xiomara Physician) eGFR 14 Below low normal [facility] [place] mL/min/1 (Ammir .73m2 Xiomara Physician) Sodium 141 [...] results) Xiomara Physician) ID Date Data Source [id number] 01/07/2020 12:00:00 AM EDT [facility] (Ammir Xiomara [...] (calc) Xiomara Physician) ID Date Data Source [id number] 01/07/2020 12:00:00 AM EDT [facility] (Ammir Xiomara [...] results) Xiomara Physician) ID Date Data Source [id number] 01/07/2020 12:00:00 AM EDT [facility] (Ammir Xiomara [...] eGFR NON-AFR. 12 Below low normal [facility] [place] mL/min/1 (Ammir .73m2 Xiomara Physician) BUN/CREATININE 9 (calc) Normal (applies [facility] RATIO to non-numeric (Ammir results) Xiomara Physician) eGFR 14 Below low normal [facility] [place] mL/min/1 (Ammir .73m2 Xiomara Physician) Sodium 141 [...] results) Xiomara Physician) ID Date Data Source [id number] 01/07/2020 12:00:00 AM EDT [facility] (Ammir Xiomara [...] Physician) Systolic blood 170 mm[Hg] 170 mm[Hg] [facility] (Am esha pressure Xiomara Physician) Body weight 149 lb 149 lb [facility] (Ammir Xiomara Physician) Body height 64 in 64 in [facility] (Ammir Xiomara Physician) Heart rate 86 /min 86 /min [facility] (Ammir Xiomara Physician) Inhaled oxygen 95 % 95 % [facility] (Am esha concentration Xiomara Physician) Body mass index 25.6 kg/m2 25.6 kg/m2 [facility] (A mmir (BMI) [Ratio] Xiomara Physician) Diastolic blood 88 mm[Hg] 88 mm[Hg] [facility] (A mmir pressure Xiomara Physician) Systolic blood 170 mm[Hg] 170 mm[Hg] [facility] (Am esha pressure Xiomara Physician) Body weight 149 lb 149 lb [facility] (Ammir Xiomara Physician) Body height 64 in 64 in [facility] (Ammir Xiomara Physician)
[2020-07-06] MEDS ORDERED: SODIUM CHLORIDE 0.9% 500 ML INFUS.BAG IV ONE (11:57)
[2020-07-06] MEDS ORDERED: HEPARIN NA (PORCINE) 5,000 UNITS/ML 1ML VIAL ONE (12:26)
[2020-07-06] MEDS ORDERED: PAPAVERINE HCL 30 MG/1 ML 10 ML VIAL NR ONE (12:26)
[2020-07-06] MEDS ORDERED: LIDOCAINE HCL 1%, 10 MG/ML (20ML VIAL) ONE (12:26)
[2020-07-06] MEDS ORDERED: PROPOFOL 20 ML ONE ×4 (12:37)
[2020-07-06] MEDS ORDERED: MIDAZOLAM HCL 2 MG/2 ML SINGLE DOSE VIAL ONE (12:37)
--- NOTE | 2020-07-06 12:55 | HP ---
Satellite [facility] - Chief Complaint History of Present Illness: 59 year old man ESRD on HD needs chronic access. Right handed. History Source: Patient - Past Medical History Allergies/Adverse Reactions: Allergies Allergy/AdvReac Type Severity Reaction Status Date / Time Penicillins Allergy Intermediate Rash Verified 05/12/20 10:29 statins Allergy Uncoded 05/12/20 10:29 Cardiovascular: Yes: HTN Pulmonary: Yes: Asthma Renal/: Yes: Renal Failure, BPH Heme/Onc: Yes: Anemia Endocrine: Yes: Diabetes Mellitus - Current Medications Current Medications: Home Medications Medication Instructions Recorded Insulin Glargine,Hum.rec.anlog 50 units SQ DAILY 09/12/19 [Lantus (10mL VIAL) -] Lisinopril [Prinivil] 10 mg PO DAILY 09/12/19 Pitavastatin Calcium [Livalo] 5 mg PO DAILY 09/12/19 Icosapent Ethyl [Vascepa] 1 gm PO DAILY 09/16/19 Albuterol Sulfate Inhaler - 2 puff IH Q6H PRN inhaler 05/14/20 [Ventolin HFA Inhaler -] Albuterol Sulfate Inhaler - 2 puff IH Q6H PRN inhaler 05/14/20 [Ventolin HFA Inhaler -] Amlodipine Besylate [Norvasc -] 10 mg PO DAILY tablet 05/14/20 oxyCODONE HCL [Roxicodone -] 5 mg PO Q6H PRN #12 tablet MDD 4 07/06/20 Satellite Physical Exam - Physical Examination Vital Signs: Vital Signs Period Temp Pulse Resp BP Sys/Nguyen Pulse Ox Last 24 Hr 97.9 F 104 16 146/84 100-100 General Appearance: Well Developed, Calm ENT: Clear Lung: Clear to auscultation Heart: Regular rate & rhythm Abdomen: Soft Extremities: No edema, Normal pulses Satellite Impression/Plan - Impression/Plan Impression: ESRD Operative Procedure: Creation AV fistula left arm Date to be Performed: 07/06/20
[2020-07-06] MEDS ORDERED: CLINDAMYCIN PHOSPHATE 600 MG/4 ML VIAL ONE (13:01)
[2020-07-06] MEDS ORDERED: CLINDAMYCIN 600 MG PREMIX BAG IVPB ONE (13:03)
[2020-07-06] MEDS ORDERED: LIDOCAINE HCL 1%, 10 MG/ML (20ML VIAL) NR ONE (13:15)
[2020-07-06] MEDS ORDERED: HEPARIN NA (PORCINE) 5,000 UNITS/ML 1ML VIAL SQ ONE (13:16)
--- NOTE | 2020-07-06 14:04 | OP ---
Operative Note - Note: Operative Date: 07/06/20 Pre-Operative Diagnosis: ESRD Operation: Creation AV fistula left arm Findings: patent cephalic vein and brachial artery Post-Operative Diagnosis: Same as Pre-op Surgeon: Roland Fang Erco Machine Operator: Yeison Nicholson Anesthesiologist/RISK MGR: Carlos Esparza Anesthesia: MAC Estimated Blood Loss (mls): 10
[2020-07-06] MEDS ORDERED: ONDANSETRON 4 MG/2 ML VIAL IVPUSH PRN (14:11)
[2020-07-06] MEDS ORDERED: SODIUM CHLORIDE 1,000 ML IV SCH (14:15)
--- NOTE | 2020-07-06 14:44 | SURG ---
Surgery Buckle Strap Puncher Note Buckle Strap Puncher: Yeison Nicholson PA-C Date of Service: 07/06/20 Diagnosis: ESRD Procedure: Creation AV fistula left arm I was present for the entirety of the operative procedure. For further detail, please refer to operative report. Visit type - Case Type Case Type: Scheduled - New patient This patient is new to me today: Yes Date on this admission: 07/06/20
[2020-07-06 15:45] VITALS: TEMP 98.6
[2020-07-06 17:09] VITALS: BP 137/77; PULSE 91
--- NOTE | 2020-07-10 12:14 | OP ---
DATE OF OPERATION: 07/06/2020 SURGEON: Roland Salmeron MD TEAM ASSEMBLY LINE MACHINE OPERATOR: MCKENZIE Aguillon PROCEDURE: Creation of arteriovenous fistula, left arm. PREOPERATIVE DIAGNOSIS: Renal failure. POSTOPERATIVE DIAGNOSIS: Renal failure. ANESTHESIA: Fractional. ANESTHESIOLOGIST: Carlos Esparza MD OPERATIVE PROCEDURE: Following routine patient identification with side and site verification, intravenous sedation was established. The left arm was prepped with ChloraPrep. Timeout was performed. Location 1% was infiltrated in the antecubital fossa. A longitudinal incision was made and carried into the subcutaneous tissues using cautery for hemostasis. The cephalic vein was mobilized from the surrounding tissues. Side branches were ligated and divided. The vein was ligated distally and incised. It was distended with heparin with papaverine solution. No. 5 and No. 8 feeding tubes were passed proximally without resistance. The brachial artery was then exposed by deepening the incision through the muscle fascia. The artery was secured with Vesseloops, and side branches were ligated and divided. The artery was occluded with Vesseloops and opened on exposed surface with a 6-mm arteriotomy. The end of the vein was freed and spatulated and anastomosed without the artery with running suture of 6-0 Prolene. The artery was allowed to backbleed and flush, and the vein was flushed with heparin solution. Suture line was completed and all vessels were released. There was good flow through the anastomosis with a palpable thrill in the vein. Bleeding was controlled with Surgicel. The wound was then closed with interrupted suture of 3-0 Vicryl in subcutaneous tissues and skin ino. Sterile dressings were applied, and the patient was taken to recovery room in stable condition. ROLAND SALMERON M.D. [id number]
== END 2020-07-06 16:20 | disposition home or self-care (01) ==
LOC: JASU-SURG 05:16
PROVIDERS: ATTEND Surgery
PROC: 03180ZD Bypass Left Brachial Artery to Upper Arm Vein, Open Approach (ICD-10-PCS; principal; 2020-07-06 12:00)
DX: I12.0 Hypertensive chronic kidney disease with stage 5 chronic kidney disease or end stage renal disease (principal); E11.21 Type 2 diabetes mellitus with diabetic nephropathy; J45.909 Unspecified asthma, uncomplicated; D50.9 Iron deficiency anemia, unspecified; Z79.4 Long term (current) use of insulin; N18.6 End stage renal disease; Z99.2 Dependence on renal dialysis
CPT/HCPCS: 36415; 82962; 84132; 94760; J1644

== ENCOUNTER 2021-04-15 19:02 | Inpatient (IN) | payer BC, OTHER ==
[2021-04-15] MEDS ORDERED: FUROSEMIDE 40 MG/4 ML INJECTABLE VIAL IVPUSH ONE (19:32)
[2021-04-15] MEDS ORDERED: FUROSEMIDE 40 MG/4 ML INJECTABLE VIAL ONE (19:39)
[2021-04-15 20:11] LABS: BASO % 0.4 % (0-2.0); EOS % 5.2 % (0-4.5); HEMATOCRIT 32.2 % (35.4-49); HEMOGLOBIN 10.5 GM/dl (11.7-16.9); LYMPH % 8.7 % (8-40); MCH 30.4 pg (25.7-33.7); MCHC 32.5 g/dl (32.0-35.9); MEAN CELL VOLUME 93.4 fl (80-96); MEAN PLT VOLUME 6.4 fl (7.5-11.1); MONO % 10.8 % (3.8-10.2); NEUT % 74.9 % (42.8-82.8); PLATELET COUNT 306 10^3/uL (134-434); RBC 3.45 M/mm3 (4.00-5.60); RDW 13.5 % (11.9-15.9); WHITE BLOOD COUNT 11.1 K/mm3 (4.0-10.8)
[2021-04-15 20:18] LABS: ALK PHOS 50 U/L (45-117); ANION GAP 14 MMOL/L (8-16); BILIRUBIN,TOTAL 0.5 mg/dl (0.2-1); CALCIUM 8.3 mg/dl (8.5-10); CHLORIDE 100 mmol/L (98-107); CO2 20 mmol/L (21-32); GLUCOSE,RANDOM 69 mg/dl (74-106); SGOT/AST 14 U/L (15-37); SGPT/ALT 12 U/L (13-61); SODIUM 134 mmol/L (136-145); TOT PROT 6.7 g/dl (6.4-8.2)
[2021-04-15 20:20] LABS: CREATININE 9.8 mg/dl (0.55-1.3)
[2021-04-15 20:52] LABS: N-TERMINAL BNP > 35000.0 pg/ml (5-125)
[2021-04-16 02:16] LABS: EPI CELLS 5 /uL (0-25.1); HYALINE CASTS 1 /uL (0-3.1); URINE APPEARANCE CLEAR; URINE BACTERIA 100 /uL (0-1359); URINE BILIRUBIN NEGATIVE (NEGATIVE); URINE COLOR YELLOW; URINE GLUCOSE (UA) TRACE (NEGATIVE); URINE KETONE NEGATIVE (NEGATIVE); URINE LEUK ESTERASE NEGATIVE (NEGATIVE); URINE NITRITE NEGATIVE (NEGATIVE); URINE PROTEIN 4+ (NEGATIVE); URINE RBC 11 /uL (0-23.9); URINE UROBILINOGEN 0.2 mg/dL (0.2-1.0); URINE WBC 5 /uL (0-25.8)
[2021-04-16 03:10] VITALS: BMI 21.6
[2021-04-16 03:42] LABS: INR 0.98 (0.83-1.09); PROTHROMBIN TIME (PATIENT) 11.9 SEC (9.7-13.0)
[2021-04-16 03:45] LABS: ACTIVATED PTT 30.4 SECONDS (25.2-36.5)
[2021-04-16] MEDS ORDERED: FUROSEMIDE 40 MG/4 ML INJECTABLE VIAL IVPUSH ONE (05:49)
[2021-04-16] MEDS ORDERED: LEVALBUTEROL HCL 0.63 MG/3 ML VIAL.NEB. IH ONE (06:00)
[2021-04-16] MEDS ORDERED: HEPARIN NA (PORCINE) 5,000 UNITS/ML 1ML VIAL SQ SCH (06:00)
[2021-04-16] MEDS: INSULIN SLIDING SCALE (NOVOLOG) 1 VIAL SQ SCH ×4 (06:45→21:35)
[2021-04-16] MEDS ORDERED: ALBUTEROL SO4 HFA INHALER IH PRN (07:18)
[2021-04-16 09:25] LABS: BASO % 0.4 % (0-2.0); EOS % 6.3 % (0-4.5); HEMATOCRIT 29.9 % (35.4-49); HEMOGLOBIN 10.1 GM/dL (11.7-16.9); LYMPH % 9.1 % (8-40); MCH 31.2 pg (25.7-33.7); MCHC 33.8 g/dl (32.0-35.9); MEAN CELL VOLUME 92.4 fl (80-96); MEAN PLT VOLUME 6.7 fl (7.5-11.1); MONO % 11.8 % (3.8-10.2); NEUT % 72.4 % (42.8-82.8); PLATELET COUNT 274 10^3/uL (134-434); RBC 3.24 M/mm3 (4.00-5.60); RDW 14.3 % (11.9-15.9); WHITE BLOOD COUNT 8.7 K/mm3 (4.0-10.0)
[2021-04-16 10:05] LABS: CHLORIDE 104 mmol/L (98-107); SODIUM 139 mmol/L (136-145)
[2021-04-16 10:18] LABS: BLOOD UREA NITROGEN 56.8 mg/dL (7-18)
[2021-04-16 10:20] LABS: ANION GAP 14 MMOL/L (8-16); CO2 21 mmol/L (21-32)
[2021-04-16 10:21] LABS: GLUCOSE,RANDOM 137 mg/dL (74-106)
[2021-04-16 10:22] LABS: CALCIUM 7.9 mg/dL (8.5-10.1)
[2021-04-16 10:34] LABS: CREATININE 11.7 mg/dL (0.55-1.3)
[2021-04-16] MEDS: amLODIPine BESYLATE 10 MG TABLET (FP) PO SCH (11:10)
[2021-04-16] MEDS: LISINOPRIL 10 MG TABLET PO SCH (11:10)
[2021-04-16] MEDS: CARVEDILOL 6.25 MG TABLET (FP) PO SCH ×2 (11:10→21:30)
[2021-04-16] MEDS: CALCIUM ACETATE 667 MG CAPSULE (FP) PO SCH ×3 (11:10→17:09)
[2021-04-16] MEDS: UMECLIDINIUM/VILANTEROL (ANORO) 62.5/25 MCG INHALER IH SCH (11:10)
[2021-04-16] MEDS: ASPIRIN 81 MG CHEWABLE TABLETS PO SCH (11:10)
[2021-04-16] MEDS ORDERED: ALBUTEROL SO4 2.5/IPRATROPIUM 0.5 INH SOL 3 ML VIAL.NEB. NEB PRN (13:23)
[2021-04-16] MEDS ORDERED: SODIUM CHLORIDE 250 ML IV PRN (14:00)
[2021-04-16] MEDS ORDERED: EPOETIN ALFA-EPBX 3,000 UNIT/ML VIAL IVPUSH ONE (14:00)
[2021-04-16] MEDS: methylPREDNISolone NA SUCC 40 MG/1 ML VIAL IVPUSH SCH ×2 (14:36→21:29)
[2021-04-16] MEDS ORDERED: DEXTROSE 5%-WATER - 50 ML IVPB ONE (15:17)
[2021-04-16] MEDS ORDERED: cefTRIAXone SODIUM 1 GM VIAL ONE (15:17)
[2021-04-16] MEDS: CEFTRIAXONE 1 GM in DEXTROSE 5%-WATER - 50 ML IVPB SCH (15:34)
[2021-04-17] MEDS: methylPREDNISolone NA SUCC 40 MG/1 ML VIAL IVPUSH SCH ×4 (03:39→21:48)
[2021-04-17] MEDS: INSULIN SLIDING SCALE (NOVOLOG) 1 VIAL SQ SCH ×4 (06:44→21:55)
[2021-04-17] MEDS: CALCIUM ACETATE 667 MG CAPSULE (FP) PO SCH ×3 (08:47→18:24)
[2021-04-17] MEDS ORDERED: DEXTROSE 5%-WATER - 50 ML IVPB ONE (10:32)
[2021-04-17] MEDS ORDERED: cefTRIAXone SODIUM 1 GM VIAL ONE (10:32)
[2021-04-17] MEDS: amLODIPine BESYLATE 10 MG TABLET (FP) PO SCH (10:35)
[2021-04-17] MEDS: CARVEDILOL 6.25 MG TABLET (FP) PO SCH ×2 (10:35→21:48)
[2021-04-17] MEDS: LISINOPRIL 10 MG TABLET PO SCH (10:35)
[2021-04-17] MEDS: ASPIRIN 81 MG CHEWABLE TABLETS PO SCH (10:36)
[2021-04-17] MEDS: UMECLIDINIUM/VILANTEROL (ANORO) 62.5/25 MCG INHALER IH SCH (10:36)
[2021-04-17] MEDS: CEFTRIAXONE 1 GM in DEXTROSE 5%-WATER - 50 ML IVPB SCH (10:36)
[2021-04-17] MEDS ORDERED: CALCIUM ACETATE 667 MG CAPSULE (FP) PO SCH (14:15)
[2021-04-17] MEDS ORDERED: APIXABAN 5 MG TABLET PO SCH (22:00)
[2021-04-18] MEDS: methylPREDNISolone NA SUCC 40 MG/1 ML VIAL IVPUSH SCH ×4 (03:26→21:40)
[2021-04-18] MEDS: INSULIN SLIDING SCALE (NOVOLOG) 1 VIAL SQ SCH ×4 (06:10→21:40)
[2021-04-18] MEDS ORDERED: DEXTROSE 5%-WATER - 50 ML IVPB ONE (07:49)
[2021-04-18] MEDS ORDERED: cefTRIAXone SODIUM 1 GM VIAL ONE (07:49)
[2021-04-18] MEDS: CALCIUM ACETATE 667 MG CAPSULE (FP) PO SCH ×3 (07:57→17:12)
[2021-04-18] MEDS: amLODIPine BESYLATE 10 MG TABLET (FP) PO SCH (10:08)
[2021-04-18] MEDS: ASPIRIN 81 MG CHEWABLE TABLETS PO SCH (10:08)
[2021-04-18] MEDS: CEFTRIAXONE 1 GM in DEXTROSE 5%-WATER - 50 ML IVPB SCH (10:08)
[2021-04-18] MEDS: UMECLIDINIUM/VILANTEROL (ANORO) 62.5/25 MCG INHALER IH SCH (10:08)
[2021-04-18] MEDS: CARVEDILOL 6.25 MG TABLET (FP) PO SCH ×2 (10:08→21:40)
[2021-04-18] MEDS: LISINOPRIL 10 MG TABLET PO SCH (10:08)
[2021-04-18] MEDS: PANTOPRAZOLE 40 MG TABLET PO SCH (17:29)
[2021-04-18] MEDS ORDERED: MAG HYDROX/AL HYDROX/SIMETH -MYLANTA- ORAL SUSPENSION PO ONE (20:17)
[2021-04-19 00:10] LABS: IGA IMMUNOGLOBULIN 176 mg/dL (61-437); IGG QN IMMUNOGLOBULIN 786 mg/dL (603-1613); IGM QN SERUM 129 mg/dL (20-172)
[2021-04-19] MEDS: methylPREDNISolone NA SUCC 40 MG/1 ML VIAL IVPUSH SCH ×4 (02:38→21:33)
[2021-04-19] MEDS: INSULIN SLIDING SCALE (NOVOLOG) 1 VIAL SQ SCH ×4 (06:24→21:34)
[2021-04-19] MEDS ORDERED: SODIUM CHLORIDE 250 ML IV PRN (07:00)
[2021-04-19] MEDS ORDERED: EPOETIN ALFA-EPBX 3,000 UNIT/ML VIAL SQ ONE (07:00)
[2021-04-19 07:08] LABS: HEMATOCRIT 28.9 % (35.4-49); HEMOGLOBIN 9.7 GM/dL (11.7-16.9); MCH 30.4 pg (25.7-33.7); MCHC 33.5 g/dl (32.0-35.9); MEAN CELL VOLUME 90.6 fl (80-96); MEAN PLT VOLUME 6.7 fl (7.5-11.1); PLATELET COUNT 326 10^3/uL (134-434); RBC 3.19 M/mm3 (4.00-5.60); RDW 13.8 % (11.9-15.9)
[2021-04-19 07:28] LABS: CHLORIDE 95 mmol/L (98-107); SODIUM 133 mmol/L (136-145)
[2021-04-19 07:35] LABS: ALBUMIN 2.6 g/dl (3.4-5.0); ANION GAP 17 MMOL/L (8-16); CALCIUM 7.1 mg/dL (8.5-10.1); CO2 21 mmol/L (21-32); GLUCOSE,RANDOM 223 mg/dL (74-106)
[2021-04-19 07:37] LABS: SGOT/AST 10 U/L (15-37); SGPT/ALT 16 U/L (13-61)
[2021-04-19 07:38] LABS: BILIRUBIN,TOTAL 0.3 mg/dL (0.2-1); IRON SERUM 83 ug/dL (50-175); TOTAL IRON BINDING CAPACITY 141 ug/dL (250-450)
[2021-04-19 07:39] LABS: TOT PROT 6.3 g/dl (6.4-8.2)
[2021-04-19 07:40] LABS: ALK PHOS 55 U/L (45-117); BLOOD UREA NITROGEN 120.3 mg/dL (7-18); CREATININE 12.6 mg/dL (0.55-1.3)
[2021-04-19] MEDS ORDERED: cefTRIAXone SODIUM 1 GM VIAL ONE (09:42)
[2021-04-19] MEDS ORDERED: DEXTROSE 5%-WATER - 50 ML IVPB ONE (09:43)
[2021-04-19] MEDS: amLODIPine BESYLATE 10 MG TABLET (FP) PO SCH (10:29)
[2021-04-19] MEDS: PANTOPRAZOLE 40 MG TABLET PO SCH (10:29)
[2021-04-19] MEDS: CARVEDILOL 6.25 MG TABLET (FP) PO SCH ×2 (10:29→21:33)
[2021-04-19] MEDS: LISINOPRIL 10 MG TABLET PO SCH (10:29)
[2021-04-19] MEDS: CALCIUM ACETATE 667 MG CAPSULE (FP) PO SCH ×3 (10:29→17:27)
[2021-04-19] MEDS: ASPIRIN 81 MG CHEWABLE TABLETS PO SCH (10:29)
[2021-04-19] MEDS: CEFTRIAXONE 1 GM in DEXTROSE 5%-WATER - 50 ML IVPB SCH (10:30)
[2021-04-19] MEDS: UMECLIDINIUM/VILANTEROL (ANORO) 62.5/25 MCG INHALER IH SCH (11:06)
[2021-04-20] MEDS: methylPREDNISolone NA SUCC 40 MG/1 ML VIAL IVPUSH SCH ×4 (03:20→21:39)
[2021-04-20] MEDS: INSULIN SLIDING SCALE (NOVOLOG) 1 VIAL SQ SCH ×4 (06:30→21:37)
[2021-04-20] MEDS: CALCIUM ACETATE 667 MG CAPSULE (FP) PO SCH ×3 (08:05→17:20)
[2021-04-20] MEDS ORDERED: EPOETIN ALFA-EPBX 4,000 UNIT/ML VIAL SQ ONE (09:15)
[2021-04-20] MEDS ORDERED: cefTRIAXone SODIUM 1 GM VIAL ONE (10:48)
[2021-04-20] MEDS ORDERED: DEXTROSE 5%-WATER - 50 ML IVPB ONE (10:48)
[2021-04-20] MEDS: PANTOPRAZOLE 40 MG TABLET PO SCH (11:16)
[2021-04-20] MEDS: CEFTRIAXONE 1 GM in DEXTROSE 5%-WATER - 50 ML IVPB SCH (11:16)
[2021-04-20] MEDS: amLODIPine BESYLATE 10 MG TABLET (FP) PO SCH (11:16)
[2021-04-20] MEDS: CARVEDILOL 6.25 MG TABLET (FP) PO SCH ×2 (11:16→21:42)
[2021-04-20] MEDS: ASPIRIN 81 MG CHEWABLE TABLETS PO SCH (11:16)
[2021-04-20] MEDS: UMECLIDINIUM/VILANTEROL (ANORO) 62.5/25 MCG INHALER IH SCH (11:16)
[2021-04-20] MEDS: LISINOPRIL 10 MG TABLET PO SCH (11:16)
[2021-04-20] MEDS ORDERED: INSULIN (NOVOLOG) ASPART 100 UNITS/ML 10ML VIAL ONE ×2 (12:19→16:38)
[2021-04-21] MEDS: methylPREDNISolone NA SUCC 40 MG/1 ML VIAL IVPUSH SCH ×4 (02:35→22:33)
[2021-04-21] MEDS: INSULIN SLIDING SCALE (NOVOLOG) 1 VIAL SQ SCH ×4 (06:51→22:31)
[2021-04-21] MEDS ORDERED: DEXTROSE 5%-WATER - 50 ML IVPB ONE (08:28)
[2021-04-21] MEDS ORDERED: cefTRIAXone SODIUM 1 GM VIAL ONE (08:28)
[2021-04-21] MEDS ORDERED: SODIUM CHLORIDE 250 ML IV PRN (09:05)
[2021-04-21] MEDS ORDERED: EPOETIN ALFA-EPBX 4,000 UNIT/ML VIAL SQ ONE (09:15)
[2021-04-21] MEDS: CEFTRIAXONE 1 GM in DEXTROSE 5%-WATER - 50 ML IVPB SCH (09:29)
[2021-04-21] MEDS: ASPIRIN 81 MG CHEWABLE TABLETS PO SCH (11:47)
[2021-04-21] MEDS: PANTOPRAZOLE 40 MG TABLET PO SCH (11:47)
[2021-04-21] MEDS: CARVEDILOL 6.25 MG TABLET (FP) PO SCH ×2 (11:47→21:46)
[2021-04-21] MEDS: LISINOPRIL 10 MG TABLET PO SCH (11:47)
[2021-04-21] MEDS: amLODIPine BESYLATE 10 MG TABLET (FP) PO SCH (11:48)
[2021-04-21] MEDS: CALCIUM ACETATE 667 MG CAPSULE (FP) PO SCH ×2 (11:48→11:59)
[2021-04-21] MEDS: UMECLIDINIUM/VILANTEROL (ANORO) 62.5/25 MCG INHALER IH SCH (11:54)
[2021-04-21 16:08] LABS: ATYPICAL pANCA <1:20 titer (Neg:<1:20); C-ANCA <1:20 titer (Neg:<1:20)
[2021-04-21] MEDS ORDERED: INSULIN (NOVOLOG) ASPART 100 UNITS/ML 10ML VIAL ONE (16:28)
[2021-04-21] MEDS: INSULIN (LEVEMIR) 100 UNITS/ML UNITS SQ SCH (22:32)
[2021-04-22 00:50] LABS: GLUCOSE,RANDOM 471 mg/dL (74-106)
[2021-04-22] MEDS: methylPREDNISolone NA SUCC 40 MG/1 ML VIAL IVPUSH SCH ×2 (04:13→10:53)
[2021-04-22] MEDS ORDERED: INSULIN (NOVOLOG) ASPART 100 UNITS/ML 10ML VIAL ONE (07:22)
[2021-04-22] MEDS: INSULIN SLIDING SCALE (NOVOLOG) 1 VIAL SQ SCH ×2 (07:56→12:13)
[2021-04-22] MEDS: CALCIUM ACETATE 667 MG CAPSULE (FP) PO SCH (09:00)
[2021-04-22] MEDS ORDERED: DEXTROSE 5%-WATER - 50 ML IVPB ONE (09:53)
[2021-04-22] MEDS ORDERED: cefTRIAXone SODIUM 1 GM VIAL ONE (09:53)
[2021-04-22] MEDS: amLODIPine BESYLATE 10 MG TABLET (FP) PO SCH (09:57)
[2021-04-22] MEDS: PANTOPRAZOLE 40 MG TABLET PO SCH (09:57)
[2021-04-22] MEDS: LISINOPRIL 10 MG TABLET PO SCH (09:57)
[2021-04-22] MEDS: CEFTRIAXONE 1 GM in DEXTROSE 5%-WATER - 50 ML IVPB SCH (09:58)
[2021-04-22] MEDS: CARVEDILOL 6.25 MG TABLET (FP) PO SCH (09:59)
[2021-04-22] MEDS: ASPIRIN 81 MG CHEWABLE TABLETS PO SCH (09:59)
[2021-04-22] MEDS: UMECLIDINIUM/VILANTEROL (ANORO) 62.5/25 MCG INHALER IH SCH (09:59)
[2021-04-22] MEDS ORDERED: predniSONE 20 MG TABLET (UD) PO SCH (10:00)
[2021-04-22] MEDS: INSULIN (LEVEMIR) 100 UNITS/ML UNITS SQ SCH (10:05)
[2021-04-22 12:38] VITALS: BP 153/89; PULSE 88; TEMP 98.7
== END 2021-04-22 16:52 | disposition home or self-care (01) | DRG 291 ==
LOC: FER 19:02 → J4W 04-16 01:00
PROVIDERS: ADMIT Internal Medicine; ATTEND Family Medicine
PROC: 5A1D70Z Performance of Urinary Filtration, Intermittent, Less than 6 Hours Per Day (ICD-10-PCS; principal; 2021-04-21)
DX: I13.2 Hypertensive heart and chronic kidney disease with heart failure and with stage 5 chronic kidney disease, or end stage renal disease (principal); N18.6 End stage renal disease; R04.2 Hemoptysis; E87.70 Fluid overload, unspecified; E11.22 Type 2 diabetes mellitus with diabetic chronic kidney disease; I48.0 Paroxysmal atrial fibrillation; I50.9 Heart failure, unspecified; E11.65 Type 2 diabetes mellitus with hyperglycemia; K21.9 Gastro-esophageal reflux disease without esophagitis; E78.5 Hyperlipidemia, unspecified; R59.0 Localized enlarged lymph nodes; I25.10 Atherosclerotic heart disease of native coronary artery without angina pectoris; E11.21 Type 2 diabetes mellitus with diabetic nephropathy; N40.0 Benign prostatic hyperplasia without lower urinary tract symptoms; J45.909 Unspecified asthma, uncomplicated; Z99.2 Dependence on renal dialysis
CPT/HCPCS: 36415; 71045-TC-FY; 71250-TC; 80048; 80053; 81003; 82164; 82550; 82784; 82785; 82947; 82962; 83036; 83520; 83540; 83550; 83605; 83880; 84484; 85025; 85027; 85610; 85651; 85730; 86038; 86140; 86256; 86480; 86803; 87040; 87070; 87086; 87116; 87205; 87206; 87340; 87556; 87899; 93005; 93306-TC; 94761; 99285-25; C9803; J1644; Q5106; U0003; U0005

== ENCOUNTER 2021-05-02 02:33 | Inpatient (IN) | payer BC, OTHER ==
[2021-05-02 02:55] VITALS: BMI 23.1
[2021-05-02 04:50] LABS: BASO % 0.5 % (0-2.0); EOS % 0.5 % (0-4.5); HEMATOCRIT 26.3 % (35.4-49); HEMOGLOBIN 8.7 GM/dL (11.7-16.9); LYMPH % 2.9 % (8-40); MCH 30.5 pg (25.7-33.7); MCHC 33.1 g/dl (32.0-35.9); MEAN CELL VOLUME 92.2 fl (80-96); MEAN PLT VOLUME 6.9 fl (7.5-11.1); MONO % 8.3 % (3.8-10.2); NEUT % 87.8 % (42.8-82.8); PLATELET COUNT 146 10^3/uL (134-434); RBC 2.85 M/mm3 (4.00-5.60); RDW 15.8 % (11.9-15.9); WHITE BLOOD COUNT 17.1 K/mm3 (4.0-10.0)
[2021-05-02 05:03] LABS: INR 1.04 (0.83-1.09); PROTHROMBIN TIME (PATIENT) 12.6 SEC (9.7-13.0)
[2021-05-02 05:06] LABS: ACTIVATED PTT 28.9 SECONDS (25.2-36.5)
[2021-05-02 05:08] LABS: CHLORIDE 106 mmol/L (98-107); SODIUM 140 mmol/L (136-145)
[2021-05-02 05:10] LABS: CALCIUM 7.5 mg/dL (8.5-10.1)
[2021-05-02 05:11] LABS: ALBUMIN 2.6 g/dl (3.4-5.0); ANION GAP 12 MMOL/L (8-16); CO2 21 mmol/L (21-32); GLUCOSE,RANDOM 56 mg/dL (74-106)
[2021-05-02 05:14] LABS: SGOT/AST 26 U/L (15-37); SGPT/ALT 24 U/L (13-61)
[2021-05-02 05:15] LABS: BILIRUBIN,TOTAL 0.5 mg/dL (0.2-1)
[2021-05-02 05:17] LABS: ALK PHOS 53 U/L (45-117)
[2021-05-02 05:56] LABS: BLOOD UREA NITROGEN 68.3 mg/dL (7-18); CREATININE 9.5 mg/dL (0.55-1.3)
[2021-05-02 07:28] LABS: ARTERIAL BLD GAS O2 SATURATION 92.2 % (95-98); ARTERIAL BLOOD GAS BASE EXCESS -2.1 mmol/L (-2-2); ARTERIAL BLOOD GAS PO2 59.9 mmHg (80-100); ARTERIAL BLOOD GAS pH 7.442 (7.350-7.450)
[2021-05-02] MEDS ORDERED: FUROSEMIDE 40 MG/4 ML INJECTABLE VIAL IVPUSH ONE ×2 (13:13→13:36)
[2021-05-02] MEDS ORDERED: ONDANSETRON 4 MG/2 ML VIAL IVPUSH PRN (13:18)
[2021-05-02] MEDS ORDERED: ONDANSETRON 4 MG/2 ML VIAL ONE (13:27)
[2021-05-02] MEDS ORDERED: methylPREDNISolone NA SUCC 40 MG/1 ML VIAL IVPUSH ONE (13:30)
[2021-05-02] MEDS ORDERED: PANTOPRAZOLE SODIUM 40 MG VIAL IVPUSH SCH (13:30)
[2021-05-02] MEDS ORDERED: NITROGLYCERIN 50 MG/10 ML VIAL IVPB SCH (14:30)
[2021-05-02] MEDS ORDERED: NITROGLYCERIN 25MG/D5W 250ML 25 MG/250 ML ML IVPB ONE (14:36)
[2021-05-02] MEDS ORDERED: NITROGLYCERIN 50MG/D5W 250ML 50 MG/250 ML ML IVPB SCH (14:45)
[2021-05-02] MEDS ORDERED: ALBUTEROL SO4 HFA INHALER IH PRN (15:08)
[2021-05-02] MEDS ORDERED: SODIUM CHLORIDE 250 ML IV PRN (15:18)
[2021-05-02] MEDS: INSULIN SLIDING SCALE (NOVOLOG) 1 VIAL SQ SCH (16:42)
[2021-05-02 17:29] LABS: CHLORIDE 104 mmol/L (98-107); SODIUM 136 mmol/L (136-145)
[2021-05-02 17:32] LABS: CO2 20 mmol/L (21-32)
[2021-05-02 17:33] LABS: BLOOD UREA NITROGEN 83.5 mg/dL (7-18); GLUCOSE,RANDOM 146 mg/dL (74-106)
[2021-05-02 17:47] LABS: ANION GAP 12 MMOL/L (8-16); CALCIUM 6.7 mg/dL (8.5-10.1); CREATININE 10.2 mg/dL (0.55-1.3)
[2021-05-02] MEDS: CALCIUM ACETATE 667 MG CAPSULE (FP) PO SCH ×2 (18:41→22:41)
[2021-05-02] MEDS: ALBUTEROL SO4 2.5/IPRATROPIUM 0.5 INH SOL 3 ML VIAL.NEB. NEB PRN (20:45)
[2021-05-02] MEDS ORDERED: PIPERACILLIN/TAZOBACTAM 2.25 GM VIAL IVPB ONE (21:52)
[2021-05-02] MEDS ORDERED: DEXTROSE 5%-WATER - 50 ML IVPB ONE (21:52)
[2021-05-02] MEDS ORDERED: CHLORHEXIDINE GLUCONATE 4% CLEANSER FOR DECOLONIZATION TP SCH (22:00)
[2021-05-02] MEDS ORDERED: CEFUROXIME AXETIL PO SCH (22:00)
[2021-05-02 22:18] LABS: CHLORIDE 99 mmol/L (98-107); SODIUM 137 mmol/L (136-145)
[2021-05-02 22:20] LABS: ANION GAP 9 MMOL/L (8-16); CO2 28 mmol/L (21-32)
[2021-05-02 22:21] LABS: GLUCOSE,RANDOM 318 mg/dL (74-106)
[2021-05-02 22:24] LABS: CREATININE 6.2 mg/dL (0.55-1.3)
[2021-05-02 22:29] LABS: BLOOD UREA NITROGEN 44.7 mg/dL (7-18); CALCIUM 6.8 mg/dL (8.5-10.1)
[2021-05-02] MEDS: HEPARIN NA (PORCINE) 5,000 UNITS/ML 1ML VIAL SQ SCH (22:32)
[2021-05-02] MEDS: CARVEDILOL 6.25 MG TABLET (FP) PO SCH (22:32)
[2021-05-02] MEDS: MUPIROCIN 2% TOPICAL OINTMENT FOR DECOLONIZATION NS SCH (22:32)
[2021-05-02] MEDS: PIPERACILLIN/TAZOB 2.25 GM 2.25 GM in DEXTROSE 5%-WATER - 50 ML IVPB SCH (22:32)
[2021-05-03] MEDS: INSULIN SLIDING SCALE (NOVOLOG) 1 VIAL SQ SCH ×5 (00:41→21:52)
[2021-05-03] MEDS ORDERED: PIPERACILLIN/TAZOBACTAM 2.25 GM VIAL IVPB ONE (02:47)
[2021-05-03] MEDS ORDERED: DEXTROSE 5%-WATER - 50 ML IVPB ONE (02:47)
[2021-05-03] MEDS: ALBUTEROL SO4 2.5/IPRATROPIUM 0.5 INH SOL 3 ML VIAL.NEB. NEB PRN ×3 (02:56→15:34)
[2021-05-03] MEDS: PIPERACILLIN/TAZOB 2.25 GM 2.25 GM in DEXTROSE 5%-WATER - 50 ML IVPB SCH (03:00)
[2021-05-03 06:37] LABS: BASO % 0.1 % (0-2.0); HEMATOCRIT 20.1 % (35.4-49); LYMPH % 4.1 % (8-40); MCH 31.7 pg (25.7-33.7); MCHC 34.9 g/dl (32.0-35.9); MEAN CELL VOLUME 90.9 fl (80-96); MEAN PLT VOLUME 7.4 fl (7.5-11.1); NEUT % 88.8 % (42.8-82.8); PLATELET COUNT 123 10^3/uL (134-434); RBC 2.21 M/mm3 (4.00-5.60); RDW 15.4 % (11.9-15.9); WHITE BLOOD COUNT 10.6 K/mm3 (4.0-10.0)
[2021-05-03 06:50] LABS: CHLORIDE 100 mmol/L (98-107); SODIUM 138 mmol/L (136-145)
[2021-05-03 06:56] LABS: ANION GAP 10 MMOL/L (8-16); BLOOD UREA NITROGEN 57.9 mg/dL (7-18); CO2 29 mmol/L (21-32); GLUCOSE,RANDOM 112 mg/dL (74-106); MAGNESIUM 2.3 mg/dL (1.8-2.4)
[2021-05-03] MEDS ORDERED: SODIUM CHLORIDE 250 ML IV PRN (07:36)
[2021-05-03 07:39] LABS: CALCIUM 6.8 mg/dL (8.5-10.1); CREATININE 7.6 mg/dL (0.55-1.3)
[2021-05-03] MEDS ORDERED: CALCIUM GLUC IN NACL, ISO-OSM 1 GM/50 ML BAG IVPB ONE (08:01)
[2021-05-03] MEDS ORDERED: EPOETIN ALFA 10,000 UNIT/1 ML VIAL IVPUSH ONE (08:45)
[2021-05-03] MEDS ORDERED: PANTOPRAZOLE 40 MG TABLET PO SCH (10:00)
[2021-05-03] MEDS ORDERED: amLODIPine BESYLATE 10 MG TABLET (FP) PO SCH (10:00)
[2021-05-03] MEDS ORDERED: LISINOPRIL 10 MG TABLET PO SCH (10:00)
[2021-05-03] MEDS ORDERED: UMECLIDINIUM/VILANTEROL (ANORO) 62.5/25 MCG INHALER IH SCH (10:00)
[2021-05-03] MEDS ORDERED: ASPIRIN 81 MG CHEWABLE TABLETS PO SCH (10:00)
[2021-05-03] MEDS ORDERED: PT OWN MED DRAWER 7, Y5N ONE (11:02)
[2021-05-03] MEDS: CARVEDILOL 6.25 MG TABLET (FP) PO SCH ×2 (11:32→21:52)
[2021-05-03] MEDS: HEPARIN NA (PORCINE) 5,000 UNITS/ML 1ML VIAL SQ SCH ×2 (11:33→21:51)
[2021-05-03] MEDS: CALCITRIOL 0.25 MCG CAPSULE (FP) PO SCH (11:34)
[2021-05-03] MEDS: CALCIUM ACETATE 667 MG CAPSULE (FP) PO SCH ×3 (11:34→17:35)
[2021-05-03] MEDS: MUPIROCIN 2% TOPICAL OINTMENT FOR DECOLONIZATION NS SCH (13:25)
[2021-05-03] MEDS ORDERED: ONDANSETRON 4 MG/2 ML VIAL IVPUSH PRN (18:13)
[2021-05-03] MEDS ORDERED: ALBUTEROL SO4 2.5/IPRATROPIUM 0.5 INH SOL 3 ML VIAL.NEB. NEB PRN (18:13)
[2021-05-03] MEDS ORDERED: ALBUTEROL SO4 HFA INHALER IH PRN (18:13)
[2021-05-03] MEDS: CHLORHEXIDINE GLUCONATE 4% CLEANSER FOR DECOLONIZATION TP SCH (21:52)
[2021-05-04] MEDS: MUPIROCIN 2% TOPICAL OINTMENT FOR DECOLONIZATION NS SCH ×3 (00:04→21:29)
[2021-05-04 06:22] LABS: BASO % 0.4 % (0-2.0); HEMATOCRIT 20.7 % (35.4-49); HEMOGLOBIN 7.1 GM/dL (11.7-16.9); LYMPH % 8.4 % (8-40); MCH 31.4 pg (25.7-33.7); MCHC 34.4 g/dl (32.0-35.9); MEAN CELL VOLUME 91.3 fl (80-96); MEAN PLT VOLUME 7.5 fl (7.5-11.1); MONO % 7.6 % (3.8-10.2); NEUT % 80.6 % (42.8-82.8); PLATELET COUNT 153 10^3/uL (134-434); RBC 2.27 M/mm3 (4.00-5.60); RDW 15.4 % (11.9-15.9); WHITE BLOOD COUNT 8.8 K/mm3 (4.0-10.0)
[2021-05-04 06:39] LABS: ALBUMIN 2.2 g/dl (3.4-5.0); BLOOD UREA NITROGEN 53.2 mg/dL (7-18); CALCIUM 7.1 mg/dL (8.5-10.1); MAGNESIUM 2.1 mg/dL (1.8-2.4)
[2021-05-04 06:42] LABS: CREATININE 6.4 mg/dL (0.55-1.3)
[2021-05-04 06:43] LABS: PHOSPHOROUS 5.5 mg/dL (2.5-4.9)
[2021-05-04 06:44] LABS: BILIRUBIN,TOTAL 0.7 mg/dL (0.2-1); TOT PROT 5.3 g/dl (6.4-8.2)
[2021-05-04] MEDS: INSULIN SLIDING SCALE (NOVOLOG) 1 VIAL SQ SCH ×4 (07:06→21:29)
[2021-05-04] MEDS: CALCIUM ACETATE 667 MG CAPSULE (FP) PO SCH ×3 (09:46→18:02)
[2021-05-04] MEDS: PANTOPRAZOLE 40 MG TABLET PO SCH (09:46)
[2021-05-04] MEDS: ASPIRIN 81 MG CHEWABLE TABLETS PO SCH (09:46)
[2021-05-04] MEDS: CARVEDILOL 6.25 MG TABLET (FP) PO SCH ×2 (09:46→21:29)
[2021-05-04] MEDS: LISINOPRIL 10 MG TABLET PO SCH (09:47)
[2021-05-04] MEDS: CALCITRIOL 0.25 MCG CAPSULE (FP) PO SCH (09:47)
[2021-05-04] MEDS: HEPARIN NA (PORCINE) 5,000 UNITS/ML 1ML VIAL SQ SCH ×2 (09:47→21:29)
[2021-05-04] MEDS: amLODIPine BESYLATE 10 MG TABLET (FP) PO SCH (09:47)
[2021-05-04] MEDS: CHLORHEXIDINE GLUCONATE 4% CLEANSER FOR DECOLONIZATION TP SCH (21:29)
[2021-05-04] MEDS: UMECLIDINIUM/VILANTEROL (ANORO) 62.5/25 MCG INHALER IH SCH (23:31)
[2021-05-04] MEDS: PIPERACILLIN/TAZOB 2.25 GM 2.25 GM in DEXTROSE 5%-WATER - 50 ML IVPB SCH ×2 (23:31→23:32)
[2021-05-05] MEDS: INSULIN SLIDING SCALE (NOVOLOG) 1 VIAL SQ SCH ×4 (06:27→21:22)
[2021-05-05] MEDS ORDERED: SODIUM CHLORIDE 250 ML IV PRN (07:03)
[2021-05-05] MEDS ORDERED: EPOETIN ALFA-EPBX 10,000 UNIT/ML VIAL IVPUSH ONE (08:00)
[2021-05-05] MEDS: CALCIUM ACETATE 667 MG CAPSULE (FP) PO SCH ×3 (09:05→18:35)
[2021-05-05] MEDS: HEPARIN NA (PORCINE) 5,000 UNITS/ML 1ML VIAL SQ SCH ×2 (10:00→21:19)
[2021-05-05] MEDS: amLODIPine BESYLATE 10 MG TABLET (FP) PO SCH (13:02)
[2021-05-05] MEDS: PANTOPRAZOLE 40 MG TABLET PO SCH (13:02)
[2021-05-05] MEDS: LISINOPRIL 10 MG TABLET PO SCH (13:02)
[2021-05-05] MEDS: ASPIRIN 81 MG CHEWABLE TABLETS PO SCH (13:02)
[2021-05-05] MEDS: CARVEDILOL 6.25 MG TABLET (FP) PO SCH (13:06)
[2021-05-05] MEDS: UMECLIDINIUM/VILANTEROL (ANORO) 62.5/25 MCG INHALER IH SCH (13:26)
[2021-05-05] MEDS: MUPIROCIN 2% TOPICAL OINTMENT FOR DECOLONIZATION NS SCH (13:26)
[2021-05-05] MEDS ORDERED: PT OWN MED DRAWER 7, Y5N ONE (14:58)
[2021-05-05] MEDS: CALCITRIOL 0.25 MCG CAPSULE (FP) PO SCH (15:04)
[2021-05-05] MEDS ORDERED: INSULIN SLIDING SCALE (NOVOLOG) 1 VIAL SQ ONE (18:57)
[2021-05-05] MEDS: CARVEDILOL 12.5 MG TABLET (FP) PO SCH (21:19)
[2021-05-05] MEDS: CHLORHEXIDINE GLUCONATE 4% CLEANSER FOR DECOLONIZATION TP SCH (21:21)
[2021-05-06] MEDS: INSULIN SLIDING SCALE (NOVOLOG) 1 VIAL SQ SCH ×2 (06:02→12:34)
[2021-05-06] MEDS ORDERED: INSULIN SLIDING SCALE (NOVOLOG) 1 VIAL SQ ONE (06:08)
[2021-05-06] MEDS: CALCIUM ACETATE 667 MG CAPSULE (FP) PO SCH ×2 (08:26→12:50)
[2021-05-06] MEDS ORDERED: PT OWN MED DRAWER 7, Y5N ONE ×2 (09:30→09:51)
[2021-05-06] MEDS: ASPIRIN 81 MG CHEWABLE TABLETS PO SCH (09:43)
[2021-05-06] MEDS: UMECLIDINIUM/VILANTEROL (ANORO) 62.5/25 MCG INHALER IH SCH (09:43)
[2021-05-06] MEDS: CARVEDILOL 12.5 MG TABLET (FP) PO SCH (09:44)
[2021-05-06] MEDS: LISINOPRIL 10 MG TABLET PO SCH (09:44)
[2021-05-06] MEDS: CALCITRIOL 0.25 MCG CAPSULE (FP) PO SCH (09:44)
[2021-05-06] MEDS: HEPARIN NA (PORCINE) 5,000 UNITS/ML 1ML VIAL SQ SCH (09:44)
[2021-05-06] MEDS: PANTOPRAZOLE 40 MG TABLET PO SCH (09:44)
[2021-05-06] MEDS: amLODIPine BESYLATE 10 MG TABLET (FP) PO SCH (09:44)
[2021-05-06 09:49] LABS: EOS % 5.7 % (0-4.5); HEMATOCRIT 25.9 % (35.4-49); HEMOGLOBIN 8.9 GM/dL (11.7-16.9); LYMPH % 9.9 % (8-40); MCH 30.9 pg (25.7-33.7); MCHC 34.2 g/dl (32.0-35.9); MEAN CELL VOLUME 90.5 fl (80-96); MEAN PLT VOLUME 7.1 fl (7.5-11.1); MONO % 7.9 % (3.8-10.2); NEUT % 75.5 % (42.8-82.8); PLATELET COUNT 181 10^3/uL (134-434); RBC 2.87 M/mm3 (4.00-5.60); RDW 14.9 % (11.9-15.9); WHITE BLOOD COUNT 5.6 K/mm3 (4.0-10.0)
[2021-05-06 10:22] LABS: CALCIUM 7.8 mg/dL (8.5-10.1)
[2021-05-06 10:23] LABS: BLOOD UREA NITROGEN 48.7 mg/dL (7-18)
[2021-05-06 10:26] LABS: CREATININE 7.2 mg/dL (0.55-1.3)
[2021-05-06 11:14] VITALS: BP 167/73; PULSE 94; TEMP 98.2
== END 2021-05-06 14:29 | disposition home health service (06) | DRG 189 ==
LOC: JER 02:33 → JERBED 06:10 → JICU 15:41 → J5S 05-05 06:00
PROVIDERS: ADMIT Internal Medicine; ATTEND Family Medicine
PROC: 5A1D70Z Performance of Urinary Filtration, Intermittent, Less than 6 Hours Per Day (ICD-10-PCS; principal; 2021-05-02)
PROC: 5A1D70Z Performance of Urinary Filtration, Intermittent, Less than 6 Hours Per Day (ICD-10-PCS; 2021-05-05)
DX: J96.01 Acute respiratory failure with hypoxia (principal); I50.23 Acute on chronic systolic (congestive) heart failure; N18.6 End stage renal disease; I13.2 Hypertensive heart and chronic kidney disease with heart failure and with stage 5 chronic kidney disease, or end stage renal disease; R04.2 Hemoptysis; A31.8 Other mycobacterial infections; M31.9 Necrotizing vasculopathy, unspecified; J44.9 Chronic obstructive pulmonary disease, unspecified; E11.9 Type 2 diabetes mellitus without complications; D69.6 Thrombocytopenia, unspecified; D64.9 Anemia, unspecified; E87.70 Fluid overload, unspecified; K21.9 Gastro-esophageal reflux disease without esophagitis; R77.8 Other specified abnormalities of plasma proteins; K57.90 Diverticulosis of intestine, part unspecified, without perforation or abscess without bleeding; I48.0 Paroxysmal atrial fibrillation; I77.6 Arteritis, unspecified; E11.22 Type 2 diabetes mellitus with diabetic chronic kidney disease; N40.0 Benign prostatic hyperplasia without lower urinary tract symptoms; R59.0 Localized enlarged lymph nodes; R91.8 Other nonspecific abnormal finding of lung field; Z99.2 Dependence on renal dialysis; Z88.0 Allergy status to penicillin
CPT/HCPCS: 36415; 36430; 36600; 71045-TC-FY; 80048; 80053; 82272; 82550; 82728; 82803; 82962; 83540; 83550; 83605; 83735; 83880; 84100; 84484; 85025; 85610; 85730; 86140; 86803; 86850; 86900; 86901; 86922; 87040; 87070; 87205; 87340; 87899; 93005; 93010; 94640; 94660; 94761; 97116-GP; 97161-GP; 99285-25; C9803; J0885; J1644; P9058; Q5106; U0003; U0005

== ENCOUNTER 2022-09-13 04:39 | Day surgery (SDC) | payer BC, OTHER ==
[2022-09-09 14:58] VITALS: BMI 21.9
[2022-09-13 07:52] VITALS: RESP 16
[2022-09-13 12:39] VITALS: BP 147/72; PULSE 82; TEMP 97.2
[2022-09-13 13:52] LABS: BF WBC & OTHER NUCLEATED CELLS 333 /mm3
[2022-09-13 13:53] LABS: BODY FLUID MACROPHAGES 85 %; BODY FLUID MESOTHELIAL 8 %
== END 2022-09-13 11:45 | disposition home or self-care (01) ==
LOC: JRADIR 04:39
PROVIDERS: ATTEND Internal Medicine Pulmonary Disease
PROC: 0W9B3ZZ Drainage of Left Pleural Cavity, Percutaneous Approach (ICD-10-PCS; principal; 2022-09-13)
DX: J90 Pleural effusion, not elsewhere classified (principal)
CPT/HCPCS: 32555; 36415; 71046-TC-FY; 76942; 82042; 82150; 82465; 82945; 83615; 83986; 84157; 84478; 87070; 87075; 87102; 87116; 87205; 87206; 87210; 88108; 88305-TC

== ENCOUNTER 2022-10-25 08:00 | Day surgery (SDC) | payer BC, OTHER ==
[2022-10-21 16:09] VITALS: BMI 20.7
[2022-10-25 08:17] VITALS: RESP 18
[2022-10-25 15:00] VITALS: PULSE 76
[2022-10-25 15:05] VITALS: BP 148/70; TEMP 98.4
== END 2022-10-25 14:00 | disposition home or self-care (01) ==
LOC: JRADIR 08:00
PROVIDERS: ATTEND Internal Medicine Pulmonary Disease
PROC: 0W9B3ZZ Drainage of Left Pleural Cavity, Percutaneous Approach (ICD-10-PCS; principal; 2022-10-25)
DX: R18.8 Other ascites (principal)
CPT/HCPCS: 32555; 71046-TC-FY; 76942

== ENCOUNTER 2025-06-17 12:32 | Inpatient (IN) | payer OTHER, BC ==
[2025-06-17 12:45] VITALS: BMI 24.3
[2025-06-17 15:12] LABS: ABSOLUTE IMMATURE GRANULOCYTES 0.22 x10^3/uL (0.0-0.031); BASOPHILS # 0.08 x10^3/uL (0.01-0.08); EOSINOPHIL % 3.0 % (0.8-7.0); EOSINOPHILS # 0.22 x10^3/uL (0.04-0.54); MCHC 33.5 g/dl (32.3-36.5); MEAN CELL VOLUME 88.9 fl (79.0-92.2); MEAN PLT VOLUME 8.4 fl (9.4-12.4); MONOCYTE # 0.88 x10^3/uL (0.30-0.82); MONOCYTE % 12.0 % (5.3-12.2); RDW 12.1 % (12.2-16.4)
[2025-06-17 15:31] LABS: GLUCOSE,RANDOM 89.0 mg/dL (74-106)
[2025-06-17 15:32] LABS: TOT PROT 8.2 g/dl (6.4-8.2)
[2025-06-17 15:33] LABS: CO2 22.0 mmol/L (21-32)
[2025-06-17 15:35] LABS: ALK PHOS 68.0 U/L (40-150)
[2025-06-17 15:37] LABS: SGOT/AST 29.0 U/L (5-34); SGPT/ALT 23.0 U/L (0-55)
[2025-06-17 15:38] LABS: CREATININE 1.02 mg/dL (0.55-1.3)
[2025-06-17 15:53] LABS: HIV INTERPRETATION NEGATIVE (NEGATIVE)
[2025-06-17 15:54] LABS: HCV DIAGNOSTIC IN-HOUSE W/RFLX NON-REACTIVE (NONREACTIVE)
[2025-06-17] MEDS ORDERED: ACETAMINOPHEN 325 MG TABLET (FP) PO PRN (17:25)
[2025-06-17] MEDS: RIVAROXABAN 15 MG TABLET PO SCH (18:15)
[2025-06-17 21:06] LABS: IRON SERUM 102.0 ug/dL (50-175)
[2025-06-17] MEDS: INSULIN ASPART SLIDING SCALE (NOVOLOG) 1 VIAL SQ SCH (21:22)
[2025-06-17] MEDS ORDERED: APIXABAN 2.5 MG TABLET PO SCH (22:00)
[2025-06-17] MEDS: MYCOPHENOLATE SODIUM 360 MG TABLET.DR PO SCH (22:12)
[2025-06-18 08:32] LABS: MCHC 33.7 g/dl (32.3-36.5); MEAN CELL VOLUME 89.0 fl (79.0-92.2); MEAN PLT VOLUME 8.4 fl (9.4-12.4); RDW 12.0 % (12.2-16.4)
[2025-06-18 08:56] LABS: GLUCOSE,RANDOM 123.0 mg/dL (74-106)
[2025-06-18 08:57] LABS: CO2 24.0 mmol/L (21-32); TOT PROT 6.7 g/dl (6.4-8.2)
[2025-06-18 08:59] LABS: ALK PHOS 55.0 U/L (40-150)
[2025-06-18 09:02] LABS: CREATININE 1.2 mg/dL (0.55-1.3); SGOT/AST 23.0 U/L (5-34); SGPT/ALT 19.0 U/L (0-55)
[2025-06-18] MEDS: NIFEdipine E.R 60 MG TABLET PO SCH (09:27)
[2025-06-18] MEDS: METOPROLOL TARTRATE 50 MG TABLET (FP) PO SCH ×2 (09:27→22:08)
[2025-06-18] MEDS: LISINOPRIL 10 MG TABLET PO SCH (09:27)
[2025-06-18] MEDS: PANTOPRAZOLE 40 MG TABLET PO SCH (09:27)
[2025-06-18] MEDS: ISOSORBIDE MONONITRATE 30 MG TAB.SR.24H (FP) PO SCH (09:27)
[2025-06-18] MEDS: FLUTICASONE/UMECLIDIN/VILANTER(100-62.5-25 TRELEGY ELLIPTA) INAHLER IH SCH (09:28)
[2025-06-19 01:28] VITALS: RESP 16
[2025-06-19 09:02] LABS: URINE APPEARANCE CLEAR; URINE BILIRUBIN NEGATIVE (NEGATIVE); URINE COLOR YELLOW; URINE GLUCOSE (UA) NEGATIVE (NEGATIVE)
[2025-06-19 09:03] LABS: URINE KETONE NEGATIVE (NEGATIVE)
[2025-06-19 09:04] LABS: URINE LEUK ESTERASE NEGATIVE (NEGATIVE); URINE NITRITE NEGATIVE (NEGATIVE); URINE PROTEIN 2+ (NEGATIVE); URINE UROBILINOGEN 0.2 mg/dL (0.2-1.0)
[2025-06-19 09:08] VITALS: BP 170/76; PULSE 85; TEMP 97.5
== END 2025-06-19 13:45 | disposition home or self-care (01) | DRG 312 ==
LOC: JER 12:32 → JERBED 16:10 → OBSVTOIN 16:10 → J4S 16:53
PROVIDERS: ADMIT Family Medicine; ATTEND Family Medicine
DX: R55 Syncope and collapse (principal); Z94.0 Kidney transplant status; J44.9 Chronic obstructive pulmonary disease, unspecified; E11.9 Type 2 diabetes mellitus without complications; I11.0 Hypertensive heart disease with heart failure; I50.9 Heart failure, unspecified; I27.20 Pulmonary hypertension, unspecified; D64.9 Anemia, unspecified; I48.0 Paroxysmal atrial fibrillation
CPT/HCPCS: 36415; 71046-TC-FY; 80053; 81003; 82962; 83036; 83540; 83550; 83735; 84443; 84484; 85025; 85027; 86803; 87389; 93005; 93010; 93306-TC; 93880-TC; 97116-GP; 97161-GP; 99285-25